=== PATIENT | male | born 1935 | race Caucasian/White ===

== ENCOUNTER → 2016-08-15 | Outpatient (CLI) | payer OTHER ==
[~2016-08-15] MED LIST: AMLO-110 PO; ASPEC81 PO; HYDR12.56 PO; METO25TA3 PO; NUTR1TAB3 PO; OMEG10007 PO; PRAV20TA PO; TAMS0.4C59 PO
== END | disposition home or self-care (01) ==
LOC: C.PATHSPEC 17:37
PROVIDERS: ATTEND Urology
DX: C67.9 Malignant neoplasm of bladder, unspecified (principal); N30.20 Other chronic cystitis without hematuria

== ENCOUNTER → 2016-10-15 | Outpatient (CLI) | payer OTHER ==
[2016-10-15 14:37] LABS: ALT/SGPT 34 U/L (12-78); AST/SGOT 22 U/L (15-37); BLOOD UREA NITROGEN 15 mg/dl (7-18); BUN/CREATININE RATIO 14.9 (10-20); CALCIUM 8.4 mg/dl (8.5-10.1); CARBON DIOXIDE 26 mmol/L (21-32); CHLORIDE 105 mmol/L (98-107); GLUCOSE 89 mg/dl (70-99); POTASSIUM 3.8 mmol/L (3.5-5.1); SODIUM 139 mmol/L (136-145)
[2016-10-15 14:41] LABS: ALB/GLOB RATIO 1.2 (0.9-2); ALKALINE PHOSPHATASE 86 U/L (45-117); CHOLESTEROL 158 mg/dl (0-200); CHOLESTEROL/HDL RATIO 2.1; HDL CHOLESTEROL 74 mg/dl; LDL CHOLESTEROL CALCULATED 70 mg/dl; TRIGLYCERIDES 71 mg/dl (0-150); VERY LOW DENSITY LIPOPROT CALC 14 mg/dl
== END | disposition home or self-care (01) ==
LOC: C.LABPVFM 07:50
PROVIDERS: ATTEND Family Medicine
DX: I10 Essential (primary) hypertension (principal); E78.5 Hyperlipidemia, unspecified

== ENCOUNTER → 2017-02-20 | Outpatient (CLI) | payer OTHER | END | disposition home or self-care (01) | LOC: C.LABSPEC 17:02 | PROVIDERS: ATTEND Urology | DX: C67.9 Malignant neoplasm of bladder, unspecified (principal); R82.8 Abnormal findings on cytological and histological examination of urine ==

== ENCOUNTER → 2017-04-16 | Outpatient (CLI) | payer OTHER ==
[2017-04-16 13:23] LABS: ALT/SGPT 29 U/L (12-78); AST/SGOT 20 U/L (15-37); BLOOD UREA NITROGEN 18 mg/dl (7-18); BUN/CREATININE RATIO 17.7 (10-20); CALCIUM 8.2 mg/dl (8.5-10.1); CARBON DIOXIDE 25 mmol/L (21-32); CHLORIDE 104 mmol/L (98-107); GLUCOSE 86 mg/dl (70-99); POTASSIUM 3.8 mmol/L (3.5-5.1); SODIUM 138 mmol/L (136-145)
[2017-04-16 13:26] LABS: ALB/GLOB RATIO 1.3 (0.9-2); ALKALINE PHOSPHATASE 79 U/L (45-117); CHOLESTEROL 169 mg/dl (0-200); HDL CHOLESTEROL 83 mg/dl; LDL CHOLESTEROL CALCULATED 73 mg/dl; TRIGLYCERIDES 64 mg/dl (0-150); VERY LOW DENSITY LIPOPROT CALC 13 mg/dl
== END | disposition home or self-care (01) ==
LOC: C.LABPVFM 08:13
PROVIDERS: ATTEND Family Medicine
DX: I10 Essential (primary) hypertension (principal); E78.5 Hyperlipidemia, unspecified

== ENCOUNTER → 2017-10-23 | Outpatient (CLI) | payer OTHER ==
[2017-10-23 14:09] LABS: ALBUMIN 3.6 gm/dl (3.4-5.0); ALT/SGPT 34 U/L (12-78); AST/SGOT 21 U/L (15-37); BLOOD UREA NITROGEN 21 mg/dl (7-18); CALCIUM 8.4 mg/dl (8.5-10.1); CARBON DIOXIDE 29 mmol/L (21-32); CHOLESTEROL 166 mg/dl (0-200); CREATININE 1.16 mg/dl (0.60-1.40); GLUCOSE 90 mg/dl (70-99); LDL CHOLESTEROL CALCULATED 78 mg/dl; POTASSIUM 3.9 mmol/L (3.5-5.1); SODIUM 136 mmol/L (136-145); TOTAL PROTEIN 6.9 gm/dl (6.4-8.2)
[2017-10-23 14:16] LABS: ALKALINE PHOSPHATASE 77 U/L (45-117)
== END | disposition home or self-care (01) ==
LOC: C.LABPVFM 08:05
PROVIDERS: ATTEND Family Medicine
DX: I10 Essential (primary) hypertension (principal); C67.9 Malignant neoplasm of bladder, unspecified; F41.9 Anxiety disorder, unspecified; E78.5 Hyperlipidemia, unspecified; Z98.890 Other specified postprocedural states; I71.4 Abdominal aortic aneurysm, without rupture; R60.0 Localized edema; R42 Dizziness and giddiness

== ENCOUNTER 2017-11-08 11:29 | Emergency (ER) | payer OTHER ==
[~2017-11-08] VITALS: Ht 170.2 cm; Wt 86.0 kg
[2017-11-08 11:37] VITALS: TEMP 36.5; Ht 170.2 cm; Wt 86.0 kg
[2017-11-08] MEDS ORDERED: ACETAMINOPHEN 500 MG TAB PO STA (11:59)
[2017-11-08] MEDS ORDERED: OPTIRAY 320 IV PRN (12:15)
[2017-11-08] MEDS ORDERED: METO25TA56 PO (12:17)
[2017-11-08] MEDS ORDERED: POTA10TA PO (12:17)
[2017-11-08] MEDS ORDERED: TAMS0.4C38 PO (12:18)
[2017-11-08] MEDS ORDERED: ASPI81TA28 PO (12:18)
[2017-11-08 12:23] LABS: BASO % 0.2 %; BASO ABS # 0.02 K/uL (0-0.2); EOS ABS # 0.18 K/uL (0-0.5); HEMATOCRIT 41.5 % (42-52); HEMOGLOBIN 14.8 g/dL (14.0-18.0); IG# 0.03 K/uL (0.00-0.02); LYMPH % 16.2 %; LYMPH ABS # 1.49 K/uL (1.2-3.4); MEAN CELL VOLUME 88.5 fL (80-100); MEAN CORPUSCULAR HEMOGLOBIN 31.6 pg (25-34); MEAN CORPUSCULAR HGB CONC 35.7 g/dl (32-36); MEAN PLATELET VOLUME 9.2 fL (7.4-10.4); MONO % 9.8 %; NEUT % 71.5 %; NEUT ABS # 6.58 K/uL (1.4-6.5); PLATELET COUNT 139 K/uL (130-400); RED CELL DISTRIBUTION WIDTH CV 13.7 % (11.5-14.5); RED CELL DISTRIBUTION WIDTH SD 44.6 fL (36.4-46.3)
[2017-11-08 12:39] LABS: ALBUMIN 3.7 gm/dl (3.4-5.0); CALCIUM 8.5 mg/dl (8.5-10.1); CREATININE 1.1 mg/dl (0.60-1.40); POTASSIUM 3.7 mmol/L (3.5-5.1)
[2017-11-08 12:42] LABS: TOTAL PROTEIN 6.9 gm/dl (6.4-8.2)
--- NOTE | 2017-11-08 13:43 | DIAGNOSTIC IMAGING REPORT ---
ADDENDUM Upon further review of the case, there are subtle acute nondisplaced fractures involving the anterolateral aspects of the right eighth, ninth and 10th ribs. Electronically signed by: Jeremiah Tirado M.D. 11/08/2017 1:56 PM Dictated Date/Time: 11/08/2017 1:54 PM ORIGINAL REPORT ABDOMEN AND PELVIS CT WITH IV CONTRAST CT DOSE: 632.12 mGy.cm HISTORY: Acute generalized abdominal pain, most pronounced in the right status post trauma. ABD PAIN, POSS liver injury--trauma, IV CONTRAST ONLY TECHNIQUE: Multiaxial CT images of the abdomen and pelvis were performed following the use of intravenous contrast. A dose lowering technique was utilized adhering to the principles of ALARA. COMPARISON STUDY: CT abdomen and pelvis 06/29/2015 FINDINGS: Mild right hemidiaphragmatic elevation with linear subsegmental consolidative opacities of the right lung base suggesting mixture of atelectasis and scarring. Subsegmental consolidative and groundglass opacities of the basal left lower lobe are also present. 3 mm solid nodule of the lingula. Calcified granulomata of the lung bases. Central airways appear patent. No pneumatosis or pneumoperitoneum. Imaged inferior cardiac chambers are mildly enlarged with coronary arterial and aortic annular calcifications noted. Nonspecific mildly enlarged 11 mm precarinal lymph node with 14 mm subcarinal lymph node demonstrating minimal calcification. Calcified right hilar lymph nodes. Liver is unremarkable without evidence of acute injury. Calcific granuloma of the hepatic dome incidentally noted. Spleen and gallbladder are unremarkable. Moderate generalized pancreatic atrophy. Moderate thickening about the left adrenal gland, unchanged. Mild nonspecific bilateral perinephric stranding. Nonobstructing 4 mm calculus of the inferior pole left kidney punctate nonobstructing interpolar calculus. 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 No ureteral calculi or obstructive uropathy. Prostate is mildly enlarged. There is mild wall thickening of the bladder with mild perivesicular stranding. Small fat filled inguinal hernias. Extensive mixed plaquing of the abdominal aorta with infrarenal abdominal aortic aneurysm redemonstrated, 2.9 x 3.6 cm, previously measuring 2.8 x 3.1 cm at the same level. Unchanged dissection of the abdominal aorta extending from the diaphragmatic hiatus into the right external iliac artery. The false lumen is again noted to be partially thrombosed. Dilation of the right common iliac artery measures 3.0 cm, previously 2.7 cm. Dilation of the right external iliac artery measures 1.5 cm, unchanged. Iliac arteries are patent. There is no bulky adenopathy identified. No retroperitoneal or rectus sheath hematoma identified to correlate with patient's clinical symptoms. Moderate hiatal hernia. No bowel obstruction or focal bowel wall thickening. Colonic diverticulosis without diverticulitis. No mesenteric inflammatory changes or ascites. Moderate stool volume of the right hemicolon. Appendix is not definitively seen. No secondary signs of acute appendicitis. Soft tissues and bony structures are unremarkable. Advanced multilevel degenerative changes about the spine. IMPRESSION: 1. No acute intra-abdominal or intrapelvic abnormality identified, specifically no evidence of acute solid organ injury. 2. Subsegmental mixed consolidative and groundglass opacities of the lung bases suggest atelectasis or pneumonitis. 3. Mildly progressive aneurysmal dilation of the infrarenal abdominal aorta, now measuring up to 3.6 cm, previously measuring up to 3.1 cm on study dated 06/29/2015. Unchanged dissection of the abdominal aorta extending into the right common and external iliac arteries. 4. Nonobstructing left-sided nephrolithiasis. 5. Moderate hiatal hernia. 6. Colonic diverticulosis without diverticulitis. Electronically signed by: Jeremiah Tirado M.D. 11/08/2017 1:42 PM Dictated Date/Time: 11/08/2017 1:29 PM
--- NOTE | 2017-11-08 13:49 | EMERGENCY ROOM VISIT NOTE ---
History Report prepared by Brian: Brennan Loyola Under the Supervision of: Dr. Ced Quijano M.D. 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 History of Present Illness The patient is an 82 year old male who presents to the Emergency Room with complaints of right-sided abdominal pain beginning two days ago. The patient states that he bent over two days ago and had his belt dig into his abdomen. He notes that he has had pain since and reports that his pain worsens with movement. He also complains of SOB when his pain comes on. He denies any nausea , vomiting, fever, urinary symptoms, and bruises. The patient states that he takes a low dose of aspirin but does not take any other blood thinners. He rates his pain as a 9-10/10. Source of History: patient Onset: two days ago Position: abdomen (right-sided) Symptom Intensity: 9-10/10 Quality: other (9-10/10) Timing: constant Modifying Factors (Worsening): movement Associated Symptoms: + SOB, No fevers, No nausea, No vomiting, No urinary symptoms Note: The patient denies any bruising. Review of Systems See HPI for pertinent positives & negatives. A total of 10 systems reviewed and were otherwise negative. Past Medical & Surgical Medical Problems: (1) Aortic dissection (2) Bladder cancer (3) Prostate cancer Family History FH: heart disease FH: hyperlipidemia Hypertension Kidney disease Kidney stones Social History Smoking Status: Former Smoker Marital Status: Housing Status: lives with family Occupation Status: retired Current/Historical Medications Scheduled Amlodipine (Norvasc), 5 MG PO DAILY Aspirin (Aspirin Ec), 81 MG PO DAILY Fish Oil ([place]-3), 1 CAP PO UD Hydrochlorothiazide (Hctz), 12.5 MG PO DAILY Metoprolol Succ (Toprol Xl) (Toprol-Xl), 12.5 MG PO DAILY Metoprolol Tartrate (Lopressor) (Lopressor), 12.5 MG PO DAILY Nutritional Supplements (Bladder 2.2), 1 TAB PO BID Potassium Chloride (K-Tabs), 10 MEQ PO DAILY Pravastatin (Pravachol ), 20 MG PO QPM Tamsulosin Hcl (Flomax), 0.4 MG PO DAILY Allergies Coded Allergies: No Known Allergies (Verified , 08/17/07) Physical Exam Vital Signs Date Time Temp Pulse Resp B/P (MAP) Pulse Ox O2 Delivery O2 Flow Rate FiO2 11/08/17 14:21 76 20 108/68 93 11/08/17 13:25 75 20 123/61 93 Room Air 11/08/17 11:37 36.5 74 18 142/77 92 Room Air Physical Exam GENERAL: Patient is in no acute distress. HEENT: No acute trauma, normocephalic atraumatic, mucous membranes moist, no nasal congestion, no scleral icterus. NECK: No stridor, no adenopathy, no meningismus, trachea is midline. LUNGS: Clear to auscultation bilaterally, no wheeze, no rhonchi, breath sounds equal. HEART: 2/6 systolic murmur, regular rate and rhythm. ABDOMEN: Soft, bowel sounds positive, no hernias, no peritonitis, tender in the RUQ and right upper lateral abdomen, no contusion, tender over right lateral lower ribs, lower abdomen and left abdomen are nontender, no distension. EXTREMITIES: No cyanosis, full range of motion of all the joints without pain or difficulty, no signs for acute trauma, moderate bilateral pedal edema. NEUROLOGIC: Oriented x 3, no acute motor or sensory deficits, no focal weakness. SKIN: No rash, no jaundice, no diaphoresis. Medical Decision & Procedures ER Provider Diagnostic Interpretation: Radiology results as stated below per my review and radiologist interpretation: R RIBS UNILATERAL WITH PA CHEST FINDINGS: Cardiac silhouette is within normal limits in size. Prior median sternotomy. Atherosclerosis of the aorta. Mild right hemidiaphragmatic elevation with linear subsegmental bibasilar opacities. No pneumothorax, pleural effusion or overt pulmonary edema. The bones appear mildly demineralized. Acute fractures are seen involving the anterolateral aspects of the right eighth, ninth and 10th ribs. IMPRESSION: 1. Mild right hemidiaphragm elevation with linear subsegmental bibasilar opacities favoring atelectasis. 2. Acute fractures of the anterolateral right eighth, ninth and 10th ribs without significant displacement. No pneumothorax. The above report was generated using voice recognition software. It may contain grammatical, syntax or spelling errors. Electronically signed by: Jeremiah Tirado M.D. 11/08/2017 1:57 PM Dictated Date/Time: 11/08/2017 1:54 PM ORIGINAL REPORT ABDOMEN AND PELVIS CT WITH IV CONTRAST FINDINGS: Mild right hemidiaphragmatic elevation with linear subsegmental consolidative opacities of the right lung base suggesting mixture of atelectasis and scarring. Subsegmental consolidative and groundglass opacities of the basal left lower lobe are also present. 3 mm solid nodule of the lingula. Calcified granulomata of the lung bases. Central airways appear patent. No pneumatosis or pneumoperitoneum. Imaged inferior cardiac chambers are mildly enlarged with coronary arterial and aortic annular calcifications noted. Nonspecific mildly enlarged 11 mm precarinal lymph node with 14 mm subcarinal lymph node demonstrating minimal calcification. Calcified right hilar lymph nodes. Liver is unremarkable without evidence of acute injury. Calcific granuloma of the hepatic dome incidentally noted. Spleen and gallbladder are unremarkable. Moderate generalized pancreatic atrophy. Moderate thickening about the left adrenal gland, unchanged. Mild nonspecific bilateral perinephric stranding. Nonobstructing 4 mm calculus of the inferior pole left kidney punctate nonobstructing interpolar calculus. 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 No ureteral calculi or obstructive uropathy. Prostate is mildly enlarged. There is mild wall thickening of the bladder with mild perivesicular stranding. Small fat filled inguinal hernias. Extensive mixed plaquing of the abdominal aorta with infrarenal abdominal aortic aneurysm redemonstrated, 2.9 x 3.6 cm, previously measuring 2.8 x 3.1 cm at the same level. Unchanged dissection of the abdominal aorta extending from the diaphragmatic hiatus into the right external iliac artery. The false lumen is again noted to be partially thrombosed. Dilation of the right common iliac artery measures 3.0 cm, previously 2.7 cm. Dilation of the right external iliac artery measures 1.5 cm, unchanged. Iliac arteries are patent. There is no bulky adenopathy identified. No retroperitoneal or rectus sheath hematoma identified to correlate with patient's clinical symptoms. Moderate hiatal hernia. No bowel obstruction or focal bowel wall thickening. Colonic diverticulosis without diverticulitis. No mesenteric inflammatory changes or ascites. Moderate stool volume of the right hemicolon. Appendix is not definitively seen. No secondary signs of acute appendicitis. Soft tissues and bony structures are unremarkable. Advanced multilevel degenerative changes about the spine. IMPRESSION: 1. No acute intra-abdominal or intrapelvic abnormality identified, specifically no evidence of acute solid organ injury. 2. Subsegmental mixed consolidative and groundglass opacities of the lung bases suggest atelectasis or pneumonitis. 3. Mildly progressive aneurysmal dilation of the infrarenal abdominal aorta, now measuring up to 3.6 cm, previously measuring up to 3.1 cm on study dated 06/29/2015. Unchanged dissection of the abdominal aorta extending into the right common and external iliac arteries. 4. Nonobstructing left-sided nephrolithiasis. 5. Moderate hiatal hernia. 6. Colonic diverticulosis without diverticulitis. Electronically signed by: Jeremiah Tirado M.D. 11/08/2017 1:42 PM ADDENDUM Upon further review of the case, there are subtle acute nondisplaced fractures involving the anterolateral aspects of the right eighth, ninth and 10th ribs. Electronically signed by: Jeremiah Tirado M.D. 11/08/2017 1:56 PM Laboratory Results 11/08/17 12:10 Red Blood Count 4.69, Mean Corpuscular Volume 88.5, Mean Corpuscular Hemoglobin 31.6, Mean Corpuscular Hemoglobin Concent 35.7, Mean Platelet Volume 9.2, Neutrophils (%) (Auto) 71.5, Lymphocytes (%) (Auto) 16.2, Monocytes (%) (Auto) 9.8, Eosinophils (%) (Auto) 2.0, Basophils (%) (Auto) 0.2, Neutrophils # (Auto) 6.58, Lymphocytes # (Auto) 1.49, Monocytes # (Auto) 0.90, Eosinophils # (Auto) 0.18, Basophils # (Auto) 0.02 11/08/17 12:10 Test 11/08/17 12:10 White Blood Count 9.20 K/uL (4.8-10.8) Red Blood Count 4.69 M/uL (4.7-6.1) Hemoglobin 14.8 g/dL (14.0-18.0) Hematocrit 41.5 % (42-52) Mean Corpuscular Volume 88.5 fL (80-100) Mean Corpuscular Hemoglobin 31.6 pg (25-34) Mean Corpuscular Hemoglobin Concent 35.7 g/dl (32-36) Platelet Count 139 K/uL (130-400) Mean Platelet Volume 9.2 fL (7.4-10.4) Neutrophils (%) (Auto) 71.5 % Lymphocytes (%) (Auto) 16.2 % Monocytes (%) (Auto) 9.8 % Eosinophils (%) (Auto) 2.0 % Basophils (%) (Auto) 0.2 % Neutrophils # (Auto) 6.58 K/uL (1.4-6.5) Lymphocytes # (Auto) 1.49 K/uL (1.2-3.4) Monocytes # (Auto) 0.90 K/uL (0.11-0.59) Eosinophils # (Auto) 0.18 K/uL (0-0.5) Basophils # (Auto) 0.02 K/uL (0-0.2) RDW Standard Deviation 44.6 fL (36.4-46.3) RDW Coefficient of Variation 13.7 % (11.5-14.5) Immature Granulocyte % (Auto) 0.3 % Immature Granulocyte # (Auto) 0.03 K/uL (0.00-0.02) Anion Gap 6.0 mmol/L (3-11) Est Creatinine Clear Calc Drug Dose 55.2 ml/min Estimated GFR () 72.6 Estimated GFR (Non- 62.6 BUN/Creatinine Ratio 14.4 (10-20) Calcium Level 8.5 mg/dl (8.5-10.1) Total Bilirubin 0.9 mg/dl (0.2-1) Aspartate Amino Transf (AST/SGOT) 20 U/L (15-37) Alanine Aminotransferase (ALT/SGPT) 26 U/L (12-78) Alkaline Phosphatase 77 U/L (45-117) Total Protein 6.9 gm/dl (6.4-8.2) Albumin 3.7 gm/dl (3.4-5.0) Globulin 3.2 gm/dl (2.5-4.0) Albumin/Globulin Ratio 1.2 (0.9-2) Lipase 48 U/L (73-393) Laboratory results reviewed by me. Medications Administered Medications (Trade) Dose Ordered Sig/Kip Route Start Time Stop Time Status Last Admin Dose Admin Acetaminophen (Tylenol Tab) 1,000 mg NOW STAT PO 11/08/17 11:59 11/08/17 12:01 DC 11/08/17 12:06 1,000 MG ED Course 1154: The patient was evaluated in room C6. A complete history and physical exam was performed. 1159: Acetaminophen 1000mg PO 1405: I reevaluated and updated the patient. 1431: Reevaluated the patient. Discussed results and discharge instructions: He verbalized understanding and agreement. The patient is ready for discharge. Medical Decision Differential diagnoses include: rib fracture/contusion, pulmonary contusion, liver injury, intraabdominal bleeding, musculoskeletal pain, renal injury, UTI, and renal colic. There is no leukocytosis or worrisome anemia. No significant electrolyte abnormality, kidney failure or hepatitis. Abdominal and pelvis CT shows some chronic change. No bowel obstruction. No acute liver injury. His infrarenal aneurysm was slightly bigger than the previous CT. The findings of aortic dissection appeared stable. Right rib series shows no pneumothorax or pneumonia. Ribs 8, 9 and 10 on the right are fractured. The patient received Tylenol for pain, he seems comfortable. He is not hypoxic or toxic. Patient has broken 3 ribs on the right, this is causing his discomfort. He was reassured that there was no intra-abdominal injury. He will be discharged with Tylenol, heat, time and outpatient family doctor follow-up. Medication Reconcilliation Current Medication List: was personally reviewed by me Blood Pressure Screening Patient's blood pressure: Normal blood pressure Blood pressure disposition: Did not require urgent referral Impression Primary Impression: Right rib fracture Additional Impressions: Right-sided chest pain RUQ abdominal pain Scribe Attestation The scribe's documentation has been prepared under my direction and personally reviewed by me in its entirety. I confirm that the note above accurately reflects all work, treatment, procedures, and medical decision making performed by me. Departure Information Dispostion Home / Self-Care Referrals Binu Campbell M.D. (PCP) Forms HOME CARE DOCUMENTATION FORM, IMPORTANT VISIT INFORMATION Patient Instructions My [facility] Additional Instructions tylenol for pain heat to the area will help avoid lifting and bending rest see jay mehta for a reheck this week return for worsening symptoms or worsening breathing, return for fever Problem Qualifiers
--- NOTE | 2017-11-08 13:58 | DIAGNOSTIC IMAGING REPORT ---
R RIBS UNILATERAL WITH PA CHEST HISTORY: 82 years-old Male pain, trauma acute right-sided rib pain status post fall COMPARISON: Chest radiograph 01/08/2013, CT abdomen and pelvis of same day TECHNIQUE: PA view of the chest with 4 views of the right ribs FINDINGS: Cardiac silhouette is within normal limits in size. Prior median sternotomy. Atherosclerosis of the aorta. Mild right hemidiaphragmatic elevation with linear subsegmental bibasilar opacities. No pneumothorax, pleural effusion or overt pulmonary edema. The bones appear mildly demineralized. Acute fractures are seen involving the anterolateral aspects of the right eighth, ninth and 10th ribs. IMPRESSION: 1. Mild right hemidiaphragm elevation with linear subsegmental bibasilar opacities favoring atelectasis. 2. Acute fractures of the anterolateral right eighth, ninth and 10th ribs without significant displacement. No pneumothorax. The above report was generated using voice recognition software. It may contain grammatical, syntax or spelling errors. Electronically signed by: Jeremiah Tirado M.D. 11/08/2017 1:57 PM Dictated Date/Time: 11/08/2017 1:52 PM
[2017-11-08 14:21] VITALS: BP 108/68; PULSE 76; O2SAT 93
== END 2017-11-08 14:22 | disposition home or self-care (01) ==
LOC: C.EDB 11:31 → C.EDC 14:22
DX: S22.41XA Multiple fractures of ribs, right side, initial encounter for closed fracture (principal); X58.XXXA Exposure to other specified factors, initial encounter; Z79.82 Long term (current) use of aspirin; Z85.51 Personal history of malignant neoplasm of bladder; Z85.46 Personal history of malignant neoplasm of prostate; Z82.49 Family history of ischemic heart disease and other diseases of the circulatory system; Z84.1 Family history of disorders of kidney and ureter; Z87.891 Personal history of nicotine dependence; Z79.899 Other long term (current) drug therapy

== ENCOUNTER → 2018-01-29 | Outpatient (CLI) | payer OTHER ==
[~2018-01-29] MED LIST changes: -AMLO-110 PO; +AMLO5TAB3 PO; -ASPEC81 PO; +ASPI81TA28 PO; +METO25TA56 PO; +POTA10TA PO; +TAMS0.4C38 PO; -TAMS0.4C59 PO
== END | disposition home or self-care (01) ==
LOC: C.PATHSPEC 17:16
PROVIDERS: ATTEND Urology
DX: C67.9 Malignant neoplasm of bladder, unspecified (principal)

== ENCOUNTER 2022-05-23 18:01 | Inpatient (IN) ==
--- NOTE | 2022-05-23 18:42 | Emergency Department Note ---
Impression & Plan Acute right flank pain, Cholelithiasis, Abnormal findings on diagnostic imaging of gallbladder ED Provider Note INFORMANT: Patient ED PROVIDER(S): Federico Benavides MD CHIEF COMPLAINT: Right flank pain PLAN: Disposition: Admitted Condition: Good Outpatient prescription management: none Referral: None MEDICAL DECISION MAKING: Patient presented because of right flank pain. He had a significant work-up done 2 days ago which included a CT PE study as well as scan of the abdomen and pelvis. The patient was quite uncomfortable and a new work-up was performed. He had an unremarkable CBC except for mild anemia. Chemistry panel and LFTs were negative. There was cardiomegaly noted on chest x-ray. Urinalysis was unremarkable. No suggestion of infection. Patient has a history of stones but there was no hematuria. 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 Patient was given a dose of morphine and sent for ultrasound imaging. Given his issues and discomfort further management in the hospital was felt to be appropriate. Consultation was made with Dr. João Holman of the [facility] service. Patient was evaluated in the ER for further management. Triage Nursing notes reviewed and agree them. Vital Signs: reviewed and remarkable for no significant abnormalities Differential diagnosis: Musculoskeletal, rib fracture, exacerbation of thoracic compression fracture, intrathoracic complication, renal colic, UTI, appendicitis, diverticulitis, mesenteric ischemia, aortic pathology, infections, inflammatory bowel disease, PUD, biliary pathology, as well as other pathologies. Diagnostics interpreted by me: ECG: Twelve-lead ECG reveals a sinus rhythm with sinus arrhythmia at first- degree AV block at 63 bpm. Right bundle branch block. No ST elevation or depression. Cardiac Monitoring: Cardiac monitoring ordered by me: The patient was placed on continuous cardiac monitoring and observed. It revealed a normal sinus rhythm at 86 beats per minute without ectopy or evidence of dysrhythmia. Imaging studies: CT scan as noted above. Ultrasound pending. HPI: The patient is a 86year old male who presents to the Emergency Room with complaints of right flank pain. The patient has a history of right-sided rib fracture on 7, 8 and 9. These were healing from prior injury. Patient had pain and was seen in the ER 2 days ago and those were evaluated. He had a chest, abdomen and pelvis CT performed. He was found to have a new T8 compression fracture. He denies any new injury or fall. This started worsened today and is described as sharp and intermittent. Worse with breathing and certain movements. The patient also notes the following associated symptoms, back pain. The patient has taken Tylenol and oxycodone for relieving factors. Current pain is rated as 4/10. Pt denies LOC, headache, fevers, chills, diaphoresis, visual changes, neck pain, chest pain, breathing difficulties, nausea, vomiting,left abdominal pain, melena, hematochezia, urinary symptoms, numbness, weakness, lymphadenopathy, rash, or other complaints. ROS: See above HPI for pertinent positives & negatives. A total of 10 systems reviewed and were otherwise negative. PAST MEDICAL HISTORY:See Below , right-sided rib fractures, AAA repair, kidney stones PAST SURGICAL HISTORY:See Below, FAMILY HISTORY:See Below SOCIAL HISTORY:See Below, retired HOME MEDICATIONS:See Below ALLERGIES:See Below VITALS:See Below PHYSICAL EXAMINATION: GENERAL: Awake, alert, uncomfortable-appearing, in no distress HENT: Normocephalic, atraumatic. Oropharynx unremarkable. EYES: Normal conjunctiva. Sclera non-icteric. NECK: Inspection normal. Non-tender. Supple. No nuchal rigidity. FROM. No masses. RESPIRATORY: Clear to auscultation. No wheezes. No rales. Normal respiratory effort. CARDIAC: Normal rate. Normal rhythm. No murmurs. No rubs. Extremities warm and well perfused. Pulses equal. No JVD. GI: Soft, non-distended. Right upper quadrant and flank tenderness to palpation. No rebound or guarding. No masses. RECTAL: Deferred. MUSCULOSKELETAL: Atraumatic. Chest examination reveals no tenderness. No tenderness along the right ribs. The back is symmetrical on inspection without obvious abnormality. There is right flank and CVA tenderness to palpation. No joint edema. LOWER EXTREMITIES: Calves are equal size bilaterally and non-tender. No edema. No discoloration. NEURO: Normal sensorium. No sensory or motor deficits noted. SKIN: No rash or jaundice noted. Federico Benavides MD Past Med/Surg History Medical History Carcinoma of bladder Right rib fracture Ureter colic Surgical History History of bladder surgery Hx of replacement of aortic valve Family History Sister Cancer Grandmother Cancer Grandmother Diabetes Unknown Heart disease Father Myocardial infarction Other Family history non-contributory Denies family history of Ovarian cancer Prostate cancer Breast cancer Colorectal cancer Social History Smoking Status: Never smoker Second Hand Exposure: No; Hx Alcohol Use: No Hx Substance Use: No Preferred Language: [place] Communication Ability: Effective Hearing Ability: Use of Hearing Aid Certified Midwife Required: No marital status: Current Living Situation: Spouse current occupational status: retired How many Children do You have: 2 Feels Safe at Home: Yes Childhood Exposure to Second-Hand Smoke: No caffeine: Yes Dental Care, Regularly: No Physical Activity Frequency: 3-4 Times per Week Seatbelt Use: always Sunscreen Use: No Allergies Allergies Allergy/AdvReac Type Severity Reaction Status Date / Time No Known Allergies Allergy Verified 05/23/22 19:42 Home Meds Home Medications Medication Instructions Recorded Confirmed aspirin 81 mg tablet,delayed 81 mg PO DAILY 05/03/18 05/23/22 release rokuvuez-qbke-wnoru acid 200 1 tab PO DAILY 01/11/19 05/23/22 mcg-lycopene 5 mg-boron 250 mcg tablet (Bladder 2.2) losartan 25 mg tablet 25 mg PO DAILY 07/12/20 05/23/22 furosemide 40 mg tablet 40 mg PO .COMPLEX 07/18/21 05/23/22 metoprolol tartrate 25 mg tablet 25 mg PO DAILY 07/18/21 05/23/22 potassium chloride 20 mEq 20 meq PO .COMPLEX 07/18/21 05/23/22 tablet,extended release spironolactone 25 mg tablet 25 mg PO DAILY 07/18/21 05/23/22 ubidecarenone-omega 3-vit E 50 1 cap PO DAILY 07/18/21 05/23/22 mg-300 (180-120)mg-30 unit capsule terazosin 1 mg capsule 1 mg PO HS 05/23/22 05/23/22 Previous Rx's Medication Instructions Recorded pravastatin 20 mg tablet 20 mg PO HS #30 tabs 12/10/21 tamsulosin 0.4 mg capsule 0.8 mg PO HS #60 caps 12/10/21 Results & Data (ED) Vital Signs Vital Signs - 24 hr 05/23/22 18:10 05/23/22 18:10 05/23/22 19:10 Temperature 36.6 C Temperature Source Oral Pulse Rate 84 Pulse Rate [Apical] 83 80 Pulse Rhythm [Apical] Regular Pulse Strength [Apical] Normal Respiratory Rate 16 16 16 Respiratory Effort / Characteristics Non-Labored Respiratory Depth Normal Normal Respiratory Pattern Regular Blood Pressure 143/76 H Blood Pressure [Left Arm] 143/76 H Blood Pressure Mean 98 Blood Pressure Mean [Left Arm] 98 Blood Pressure Position [Left Arm] Pulse Oximetry 95 96 94 Oxygen Delivery Method Room Air Room Air Room Air Sepsis Recent Fever Within 48 Hours No Sepsis New/Unexplained Change in Mental Status N/A Sepsis Action Taken by Nursing No Action Required 05/23/22 21:00 05/23/22 22:36 05/23/22 23:00 Temperature Temperature Source Pulse Rate Pulse Rate [Apical] 85 82 86 Pulse Rhythm [Apical] Regular Regular Regular Pulse Strength [Apical] Normal Normal Normal Respiratory Rate 16 16 16 Respiratory Effort / Characteristics Non-Labored Non-Labored Non-Labored Respiratory Depth Shallow Normal Normal Respiratory Pattern Regular Regular Regular Blood Pressure Blood Pressure [Left Arm] 154/75 H 154/75 H 154/75 H Blood Pressure Mean Blood Pressure Mean [Left Arm] 101 101 101 Blood Pressure Position [Left Arm] Lying Pulse Oximetry 94 92 94 Oxygen Delivery Method Room Air Room Air Room Air Sepsis Recent Fever Within 48 Hours Sepsis New/Unexplained Change in Mental Status Sepsis Action Taken by Nursing Laboratory Data Result diagrams: 05/23/22 18:54 05/23/22 18:54 Lab Results 05/23/22 05/23/22 05/23/22 Range/Units 18:54 18:54 21:13 WBC 6.88 (4.8-10.8) K/ul RBC 3.96 L (4.63-6.08) M/uL Hgb 12.6 L (14.0-18.0) g/dl Hct 35.8 L (40.1-51.0) % MCV 90.4 (80.0-100.0) fL MCH 31.8 (25.0-34.0) pg MCHC 35.2 (32.0-36.0) g/dL RDW Std Deviation 43.4 (36.4-46.3) fL RDW Coeff of [place] 13.1 (11.5-14.5) % Plt Count 167 (130-400) K/uL MPV 9.3 L (9.4-12.4) fL Immature Gran % (Auto) 0.1 % Neut % (Auto) 66.2 % Lymph % (Auto) 12.9 % [place] % (Auto) 18.0 % Eos % (Auto) 2.5 % Baso % (Auto) 0.3 % Neut # (Auto) 4.55 (1.4-6.5) K/uL Lymph # (Auto) 0.89 L (1.2-3.4) K/uL [place] # (Auto) 1.24 H (0.24-0.82) K/uL Eos # (Auto) 0.17 (0-0.50) K/uL Baso # (Auto) 0.02 (0-0.2) K/uL Immature Gran # (Auto) 0.01 (0.00-0.02) K/uL Sodium 131 L (136-145) mmol/L Potassium 3.6 (3.5-5.1) mmol/L Chloride 100 (98-107) mmol/L Carbon Dioxide 22 (21-32) mmol/L Anion Gap 9 (3-11) BUN 24 H (6-23) mg/dl Creatinine 1.58 H (0.6-1.4) mg/dl Est Cr Clr Drug Dosing 32.0 ml/min Est GFR ( Amer) 45.6 ml/min Est GFR (Non-Af Amer) 39.3 ml/min BUN/Creatinine Ratio 15.2 (10-20) Glucose 100 H (70-99(Fasting)) mg/dl Calcium 8.8 (8.5-10.1) mg/dl Total Bilirubin 0.8 (0.2-1.0) mg/dl AST 18 (13-39) U/L ALT 16 (7-52) U/L Alkaline Phosphatase 64 (34-104) U/L Troponin I High Sens 6.9 (0-20) pg/ml Total Protein 6.2 (6.0-8.3) gm/dl Albumin 3.8 (3.4-5.0) gm/dl Globulin 2.4 L (2.5-4.0) gm/dl Albumin/Globulin Ratio 1.6 (0.9-2) Lipase 5 L (11-82) U/L Urine Color Yellow Urine Appearance Clear (Clear) Urine pH 5.5 (4.5-7.5) Ur Specific [place] 1.039 H (1.000-1.030) Urine Protein Negative (Negative) Urine Glucose (UA) Negative (Negative) Urine Ketones Trace H (Negative) Urine Blood Negative (Negative) Urine Nitrite Negative (Negative) Urine Bilirubin Negative (Negative) Urine Urobilinogen Negative (Negative) Ur Leukocyte Esterase Negative (Negative) SARS-CoV-2, RNA, NAAT (NEGATIVE) 05/24/22 Range/Units 00:11 WBC (4.8-10.8) K/ul RBC (4.63-6.08) M/uL Hgb (14.0-18.0) g/dl Hct (40.1-51.0) % MCV (80.0-100.0) fL MCH (25.0-34.0) pg MCHC (32.0-36.0) g/dL RDW Std Deviation (36.4-46.3) fL RDW Coeff of [place] (11.5-14.5) % Plt Count (130-400) K/uL MPV (9.4-12.4) fL Immature Gran % (Auto) % Neut % (Auto) % Lymph % (Auto) % [place] % (Auto) % Eos % (Auto) % Baso % (Auto) % Neut # (Auto) (1.4-6.5) K/uL Lymph # (Auto) (1.2-3.4) K/uL [place] # (Auto) (0.24-0.82) K/uL Eos # (Auto) (0-0.50) K/uL Baso # (Auto) (0-0.2) K/uL Immature Gran # (Auto) (0.00-0.02) K/uL Sodium (136-145) mmol/L Potassium (3.5-5.1) mmol/L Chloride (98-107) mmol/L Carbon Dioxide (21-32) mmol/L Anion Gap (3-11) BUN (6-23) mg/dl Creatinine (0.6-1.4) mg/dl Est Cr Clr Drug Dosing ml/min Est GFR ( Amer) ml/min Est GFR (Non-Af Amer) ml/min BUN/Creatinine Ratio (10-20) Glucose (70-99(Fasting)) mg/dl Calcium (8.5-10.1) mg/dl Total Bilirubin (0.2-1.0) mg/dl AST (13-39) U/L ALT (7-52) U/L Alkaline Phosphatase (34-104) U/L Troponin I High Sens (0-20) pg/ml Total Protein (6.0-8.3) gm/dl Albumin (3.4-5.0) gm/dl Globulin (2.5-4.0) gm/dl Albumin/Globulin Ratio (0.9-2) Lipase (11-82) U/L Urine Color Urine Appearance (Clear) Urine pH (4.5-7.5) Ur Specific [place] (1.000-1.030) Urine Protein (Negative) Urine Glucose (UA) (Negative) Urine Ketones (Negative) Urine Blood (Negative) Urine Nitrite (Negative) Urine Bilirubin (Negative) Urine Urobilinogen (Negative) Ur Leukocyte Esterase (Negative) SARS-CoV-2, RNA, NAAT NEGATIVE (NEGATIVE) Administered Medications Discontinued Medications Ioversol (Optiray 320 500ml) 117 ml IV ONCE ONE Stop: 05/23/22 20:03 Last Admin: 05/23/22 20:02 Dose: 117 ml Documented By: CHAYO Morphine Sulfate (Morphine Sulfate 2 Mg/Ml Carp) 1 mg IV NOW STA Stop: 05/23/22 23:27 Last Admin: 05/23/22 23:34 Dose: 1 mg Documented By: VON Imaging Data Radiologist's Impression: Chest X-Ray 05/23/22 18:22 SINGLE VIEW CHEST CLINICAL HISTORY: Right flank pain FINDINGS: An AP, portable, upright chest radiograph is compared to chest x-ray and chest CT dated 05/21/2022. A hiatal hernia is noted. The patient is status post midline sternotomy. The heart is enlarged noting atherosclerotic calcification of the thoracic aorta. The pulmonary vasculature is noncongested. Emphysema and chronic interstitial thickening is similar to previous. There is chronic elevation of the right hemidiaphragm with bibasilar scarring/atelectasis. No airspace consolidation or large pleural effusion is identified. No pneumothorax is seen. The skeletal structures are osteopenic. The bony thorax is grossly intact. Surgical clips project over the right axilla. IMPRESSION: 1. Cardiomegaly and emphysema with no acute cardiopulmonary abnormality identified. 2. Hiatal hernia. ACT 112: Negative or not required by law. Electronically signed by: Ced Gonzalez M.D. 05/23/2022 7:11 PM Discharge Plan Visit Data Chief Complaint: Rib Injury/Pain Stated Complaint: R SIDE RIB PAIN ED Provider: Federico Benavides Discharge Problem: Acute right flank pain, Cholelithiasis, Abnormal findings on diagnostic imaging of gallbladder Forms Stand Alone Forms: My [facility] RIB Software Prescriptions Prescriptions: No Action tamsulosin 0.4 mg capsule 0.8 mg PO HS Qty: 60 11RF pravastatin 20 mg tablet 20 mg PO HS Qty: 30 11RF losartan 25 mg tablet 25 mg PO DAILY potassium chloride 20 mEq tablet extended release 20 meq PO .COMPLEX Rx Instructions: 20 mEq PO daily; TAKES 40 MEQ ON TUESDAYS & FRIDAYS. Bladder 2.2 200-5-250 mcg-mg-mcg tablet 1 tab PO DAILY furosemide 40 mg tablet 40 mg PO .COMPLEX Rx Instructions: 40 mg PO daily; TAKES 80 MG ON TUESDAYS & FRIDAYS. ubidecarenone-omega 3-vit E 50-300-30 mg-mg-unit capsule 1 cap PO DAILY metoprolol tartrate 25 mg tablet 25 mg PO DAILY spironolactone 25 mg tablet 25 mg PO DAILY aspirin 81 mg Tablet,Delayed Release (Dr/Ec) 81 mg PO DAILY terazosin 1 mg capsule 1 mg PO HS Referrals Referrals: Bassam Silva DO [Primary Care Provider] -
[2022-05-23 19:14] LABS: Basophils # (auto) 0.02 K/uL (0-0.2); Basophils % (auto) 0.3 %; Eosinophils # (auto) 0.17 K/uL (0-0.50); Eosinophils % (auto) 2.5 %; Hematocrit (blood only) 35.8 % (40.1-51.0); Hemoglobin 12.6 g/dl (14.0-18.0); Immature Granulocytes # (auto) 0.01 K/uL (0.00-0.02); Immature Granulocytes % (auto) 0.1 %; Lymphocytes # (auto) 0.89 K/uL (1.2-3.4); Lymphocytes % (auto) 12.9 %; Mean Corpuscular Hemoglobin 31.8 pg (25.0-34.0); Mean Corpuscular Hgb Conc 35.2 g/dL (32.0-36.0); Mean Corpuscular Volume 90.4 fL (80.0-100.0); Mean Platelet Volume 9.3 fL (9.4-12.4); Monocytes # (auto) 1.24 K/uL (0.24-0.82); Neutrophils # (auto) 4.55 K/uL (1.4-6.5); Neutrophils % (auto) 66.2 %; Platelet Count 167 K/uL (130-400); RDW Coefficient of Variation 13.1 % (11.5-14.5); RDW Standard Deviation 43.4 fL (36.4-46.3); Red Blood Count 3.96 M/uL (4.63-6.08); White Blood Count 6.88 K/ul (4.8-10.8)
--- NOTE | 2022-05-23 19:14 | XRay Report ---
SINGLE VIEW CHEST CLINICAL HISTORY: Right flank pain FINDINGS: An AP, portable, upright chest radiograph is compared to chest x-ray and chest CT dated . A hiatal hernia is noted. The patient is status post midline sternotomy. The heart is enlarg ed noting atherosclerotic calcification of the thoracic aorta. The pulmonary vasculature is nonconges horacio. Emphysema and chronic interstitial thickening is similar to previous. There is chronic elevation of the right hemidiaphragm with bibasilar scarring/atelectasis. No airspace consolidation or large p leural effusion is identified. No pneumothorax is seen. The skeletal structures are osteopenic. The b joanne thorax is grossly intact. Surgical clips project over the right axilla. IMPRESSION: 1. Cardiomegaly and emphysema with no acute cardiopulmonary abnormality identified. 2. Hiatal hernia. ACT 112: Negative or not required by law. Electronically signed by: Ced Gonzalez M.D. 05/23/2022 7:11 PM
[2022-05-23 19:44] LABS: Albumin Globulin Ratio 1.6 (0.9-2); Albumin Level 3.8 gm/dl (3.4-5.0); BUN Creatinine Ratio 15.2 (10-20); Bilirubin,Total 0.8 mg/dl (0.2-1.0); Calcium 8.8 mg/dl (8.5-10.1); Est GFR (African American) 45.6 ml/min; Est GFR (Non-African American) 39.3 ml/min; Globulin 2.4 gm/dl (2.5-4.0); Potassium 3.6 mmol/L (3.5-5.1); Total Protein 6.2 gm/dl (6.0-8.3)
[2022-05-23 19:45] LABS: Troponin I High Sensitivity 6.9 pg/ml (0-20)
[2022-05-23] MEDS ORDERED: OPTIRAY 320 500ml IV ONE (20:02)
[2022-05-23 21:46] LABS: Appearance Urine Clear (Clear); Bilirubin Urine Negative (Negative); Blood Urine Negative (Negative); Color Urine Yellow; Glucose Urine UA Negative (Negative); Ketones Urine Trace (Negative); Leukocyte Esterase Urine Negative (Negative); Nitrite Urine Negative (Negative); Protein Urine Negative (Negative); Specific Gravity Urine 1.039 (1.000-1.030); Urobilinogen Urine Negative (Negative); pH Urine 5.5 (4.5-7.5)
[2022-05-23] MEDS ORDERED: MoRPHine SULFATE 2 MG/ML CARP IV STA (23:26)
--- NOTE | 2022-05-24 01:31 | History & Physical Report ---
Date of Service May 24, 2022 Assessment & Plan (1) Acute right flank pain: Plan: Acute right flank pain/right rib cage pain/right seventh, eighth and ninth rib fractures- Patient was seen 2 days ago in the emergency department and noted to have these rib fractures. The patient's symptoms worsened when he was on his riding lawnmower, and reached over to move the limb and his belt squeezed on his rib cage and caused a significant return of symptoms His imaging does show an 8 mm gallbladder stone, however, the gallbladder itself looks normal, and liver tests are normal. The ED was somewhat concerned about the possibility of a gallbladder issue, however, there was no variation with diet in addition to the findings as noted in the line above An ultrasound of right upper quadrant was ordered by the ED, and I will order a HIDA scan in the morning to rule out the possibility of cholecystitis (2) Cholelithiasis: Plan: As noted on CT Ultrasound right upper quadrant of abdomen has been ordered by the ED I will order HIDA scan for the morning Symptoms more likely related to rib fractures (3) Acute kidney injury: Plan: Creatinine 1.58 on admission, with range 0.95-1.19 Hold spironolactone, potassium chloride, losartan and furosemide NSS at 80 mils per hour x1 L Recheck laboratories in a.m. (4) Hypertension: Plan: Continue metoprolol tartrate and terazosin Holding furosemide, losartan, potassium chloride and spironolactone as noted above (5) Abdominal aortic aneurysm (AAA) without rupture: Plan: Unchanged on imaging compared to previous, and without evidence of dissection (6) Right rib fracture: Plan: Add Lidoderm patch (7) Compression fracture of T8 vertebra: (8) T12 compression fracture: (9) Carcinoma of bladder: (10) Hyperlipidemia: Plan: Continue pravastatin 20 mg at bedtime (11) Right-sided chest pain: (12) RUQ abdominal pain: History of Present Illness Chief Complaint: The patient presents to the emergency department with complaint of right upper q uadrant and flank pain, that is worsened from his previous emergency department visit 2 days ago. He has persistent diarrhea since the beginning of the year. His pain does not change with eating or drinking, but does worsen with certain types of movements. He reports the pain intensified since discharge, when he was riding his tractor while cutting grass, and instead of getting up off the tractor to move a branch, he leaned over, and his belt put pressure on his side and caused severe pain Primary Care Provider: Bassam Silva DO The patient is an 86-year-old male with a past medical history including osteoporosis, hiatal hernia, vitamin D deficiency, lower extremity edema, bladder carcinoma, AAA without rupture, BPH with LUTS, hyperlipidemia, hypertension, hypokalemia, nephrolithiasis. He was diagnosed recently with rib fractures on the right side of 7, 8 and 9, which redemonstrated on CT of abdomen pelvis today. CT abdomen pelvis shows fluid throughout right and transverse colon, consistent with enteritis. Chest x-ray shows cardiomegaly and emphysema with hiatal hernia. Allergies Allergy/AdvReac Type Severity Reaction Status Date / Time No Known Allergies Allergy Verified 05/23/22 19:42 Home Medications Medication Instructions Recorded Confirmed Type aspirin 81 mg tablet,delayed 81 mg PO DAILY 05/03/18 05/23/22 History release btxisgiu-jvwr-ipyky acid 200 1 tab PO DAILY 01/11/19 05/23/22 History mcg-lycopene 5 mg-boron 250 mcg tablet (Bladder 2.2) losartan 25 mg tablet 25 mg PO DAILY 07/12/20 05/23/22 History furosemide 40 mg tablet 40 mg PO .COMPLEX 07/18/21 05/23/22 History metoprolol tartrate 25 mg tablet 25 mg PO DAILY 07/18/21 05/23/22 History potassium chloride 20 mEq 20 meq PO .COMPLEX 07/18/21 05/23/22 History tablet,extended release spironolactone 25 mg tablet 25 mg PO DAILY 07/18/21 05/23/22 History ubidecarenone-omega 3-vit E 50 1 cap PO DAILY 07/18/21 05/23/22 History mg-300 (180-120)mg-30 unit capsule pravastatin 20 mg tablet 20 mg PO HS #30 tabs 12/10/21 05/23/22 Rx tamsulosin 0.4 mg capsule 0.8 mg PO HS #60 caps 12/10/21 05/23/22 Rx terazosin 1 mg capsule 1 mg PO HS 05/23/22 05/23/22 History Past Med/Surg History Medical History Carcinoma of bladder Right rib fracture Ureter colic Surgical History History of bladder surgery Hx of replacement of aortic valve Family History Sister Cancer Grandmother Cancer Grandmother Diabetes Unknown Heart disease Father Myocardial infarction Other Family history non-contributory Denies family history of Ovarian cancer Prostate cancer Breast cancer Colorectal cancer Social History Smoking Status: Never smoker Second Hand Exposure: No; Hx Alcohol Use: Yes Alcohol type: hard liquor Hx Substance Use: No Preferred Language: Divehi Communication Ability: Effective Hearing Ability: Use of Hearing Aid 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 Beliefs That Will Affect Care: None marital status: Current Living Situation: Spouse Current Living Situation Comment: lives with in ranch house current occupational status: retired How many Children do You have: 2 Other Information That Helps Us Care for You: No Feels Safe at Home: Yes Childhood Exposure to Second-Hand Smoke: No caffeine: Yes Dental Care, Regularly: No Physical Activity Frequency: 3-4 Times per Week Seatbelt Use: always Sunscreen Use: No Assistive Devices: Glasses and Hearing Aid - Bilateral Review of Systems Review of Systems: The patient denies chest pain, palpitations, cough, lower extremity swelling, sore throat, fevers, chills, sweats, nausea, vomiting, blood in urine or stool, dysuria, urinary frequency or urgency, lightheadedness, dizziness, headache, memory loss, loss of consciousness, rash, abnormal bruising or bleeding, imbalance, focal or generalized weakness, numbness or tingling in arms or legs, generalized arthralgias or myalgias, neck pain, or night sweats. The review of systems is otherwise negative other than for that already noted above, and at least 10 systems have been reviewed. Physical Exam Physical Exam: The patient is awake, alert and oriented 3, well developed and well nourished, normocephalic and atraumatic, lying in bed and in no acute distress. HEENT--PERRL, EOMI, mucous membranes and oropharynx dry. Neck--supple. No JVD. No bruits. Thyroid normal, trachea midline, no adenopathy. Heart--normal S1 and S2. No murmurs, rubs or gallops. Lungs--clear bilaterally, no respiratory distress, no accessory muscle use. Abdomen--normal bowel sounds and soft. Mild right upper quadrant, right flank and lower chest wall and rib reproducible pain Extremities--no cyanosis or clubbing. No edema. Dermatologic--normal skin turgor, normal color, no abnormal lymph nodes, no rash. Neurologic--cranial nerves II through XII grossly intact. Rheumatologic--limited exam due to right lower rib cage pain Psychiatric--normal affect. Results & Data Results & Data ([facility]) Vital Signs (Past 12 Hours) Vital Signs Temp Pulse Pulse Resp BP BP Pulse Ox 05/24/22 00:58 84 16 123/70 96 05/23/22 23:00 86 16 154/75 H 94 05/23/22 22:36 82 16 154/75 H 92 05/23/22 21:00 85 16 154/75 H 94 05/23/22 19:10 80 16 143/76 H 94 05/23/22 18:10 83 16 96 05/23/22 18:10 36.6 C 84 16 143/76 H 95 O2 Del Method 05/24/22 00:58 Room Air 05/23/22 23:00 Room Air 05/23/22 22:36 Room Air 05/23/22 21:00 Room Air 05/23/22 19:10 Room Air 05/23/22 18:10 Room Air 05/23/22 18:10 Room Air Laboratory Results Laboratory Results WBC 6.88 K/ul (4.8-10.8) 05/23/22 18:54 RBC 3.96 M/uL (4.63-6.08) L 05/23/22 18:54 Hgb 12.6 g/dl (14.0-18.0) L 05/23/22 18:54 Hct 35.8 % (40.1-51.0) L 05/23/22 18:54 MCV 90.4 fL (80.0-100.0) 05/23/22 18:54 MCH 31.8 pg (25.0-34.0) 05/23/22 18:54 MCHC 35.2 g/dL (32.0-36.0) 05/23/22 18:54 RDW Std Deviation 43.4 fL (36.4-46.3) 05/23/22 18:54 RDW Coeff of Lnodon 13.1 % (11.5-14.5) 05/23/22 18:54 Plt Count 167 K/uL (130-400) 05/23/22 18:54 MPV 9.3 fL (9.4-12.4) L 05/23/22 18:54 Immature Gran % (Auto) 0.1 % 05/23/22 18:54 Neut % (Auto) 66.2 % 05/23/22 18:54 Lymph % (Auto) 12.9 % 05/23/22 18:54 Potter % (Auto) 18.0 % 05/23/22 18:54 Eos % (Auto) 2.5 % 05/23/22 18:54 Baso % (Auto) 0.3 % 05/23/22 18:54 Neut # (Auto) 4.55 K/uL (1.4-6.5) 05/23/22 18:54 Lymph # (Auto) 0.89 K/uL (1.2-3.4) L 05/23/22 18:54 Potter # (Auto) 1.24 K/uL (0.24-0.82) H 05/23/22 18:54 Eos # (Auto) 0.17 K/uL (0-0.50) 05/23/22 18:54 Baso # (Auto) 0.02 K/uL (0-0.2) 05/23/22 18:54 Immature Gran # (Auto) 0.01 K/uL (0.00-0.02) 05/23/22 18:54 Sodium 131 mmol/L (136-145) L 05/23/22 18:54 Potassium 3.6 mmol/L (3.5-5.1) 05/23/22 18:54 Chloride 100 mmol/L (98-107) 05/23/22 18:54 Carbon Dioxide 22 mmol/L (21-32) 05/23/22 18:54 Anion Gap 9 (3-11) 05/23/22 18:54 BUN 24 mg/dl (6-23) H 05/23/22 18:54 Creatinine 1.58 mg/dl (0.6-1.4) H 05/23/22 18:54 Est Cr Clr Drug Dosing 32.0 ml/min 05/23/22 18:54 Est GFR ( Amer) 45.6 ml/min 05/23/22 18:54 Est GFR (Non-Af Amer) 39.3 ml/min 05/23/22 18:54 BUN/Creatinine Ratio 15.2 (10-20) 05/23/22 18:54 Glucose 100 mg/dl (70-99(Fasting)) H 05/23/22 18:54 Calcium 8.8 mg/dl (8.5-10.1) 05/23/22 18:54 Total Bilirubin 0.8 mg/dl (0.2-1.0) 05/23/22 18:54 AST 18 U/L (13-39) 05/23/22 18:54 ALT 16 U/L (7-52) 05/23/22 18:54 Alkaline Phosphatase 64 U/L (34-104) 05/23/22 18:54 Troponin I High Sens 6.9 pg/ml (0-20) 05/23/22 18:54 Total Protein 6.2 gm/dl (6.0-8.3) 05/23/22 18:54 Albumin 3.8 gm/dl (3.4-5.0) 05/23/22 18:54 Globulin 2.4 gm/dl (2.5-4.0) L 05/23/22 18:54 Albumin/Globulin Ratio 1.6 (0.9-2) 05/23/22 18:54 Lipase 5 U/L (11-82) L 05/23/22 18:54 Urine Color Yellow 05/23/22 21:13 Urine Appearance Clear (Clear) 05/23/22 21:13 Urine pH 5.5 (4.5-7.5) 05/23/22 21:13 Ur Specific [place] 1.039 (1.000-1.030) H 05/23/22 21:13 Urine Protein Negative (Negative) 05/23/22 21:13 Urine Glucose (UA) Negative (Negative) 05/23/22 21:13 Urine Ketones Trace (Negative) H 05/23/22 21:13 Urine Blood Negative (Negative) 05/23/22 21:13 Urine Nitrite Negative (Negative) 05/23/22 21:13 Urine Bilirubin Negative (Negative) 05/23/22 21:13 Urine Urobilinogen Negative (Negative) 05/23/22 21:13 Ur Leukocyte Esterase Negative (Negative) 05/23/22 21:13 SARS-CoV-2, RNA, NAAT NEGATIVE (NEGATIVE) 05/24/22 00:11 Impressions Chest X-Ray 05/23/22 18:22 SINGLE VIEW CHEST CLINICAL HISTORY: Right flank pain FINDINGS: An AP, portable, upright chest radiograph is compared to chest x-ray and chest CT dated 05/21/2022. A hiatal hernia is noted. The patient is status post midline sternotomy. The heart is enlarged noting atherosclerotic calcification of the thoracic aorta. The pulmonary vasculature is noncongested. Emphysema and chronic interstitial thickening is similar to previous. There is chronic elevation of the right hemidiaphragm with bibasilar scarring/atelectasis. No airspace consolidation or large pleural effusion is identified. No pneumothorax is seen. The skeletal structures are osteopenic. The bony thorax is grossly intact. Surgical clips project over the right axilla. IMPRESSION: 1. Cardiomegaly and emphysema with no acute cardiopulmonary abnormality identified. 2. Hiatal hernia. ACT 112: Negative or not required by law. Electronically signed by: Ced Gonzalez M.D. 05/23/2022 7:11 PM Diagnostic Findings [facility] Patient: MC RODRIGUEZ (Male) : 37 Status: ER Date: 05/23/22 20:15 Room #: History: hx of kidney stones, and AAA. Slices: [id number] Priors: Tech: Rosa Maria High @ [phone] Exams: CT ABDOMEN & PELVIS Without Contrast Contrast: IV Amt: 117ml Accession Numbers: [id number] Referring Physician: REFERRED SELF Preliminary Findings Only See Final Report For Complete Findings ADDENDUM - Added by Toribio Marie MD on 05/23/2022 11:24 PM (-06:00) Addendum: Additional postcontrast CTA images are received. There is chronic aneurysm or dissection of the abdominal aorta measuring a maximum of 3.5 cm in diameter. The mesenteric and renal arteries arise from the true lumen and are patent. No arterial thrombus is seen. The false lumen extends down the right common iliac and external iliac arteries. There is approximately 60% stenosis of the right common iliac artery. The right external iliac and common femoral arteries are widely patent. The configuration is unchanged since previous. No aneurysm rupture or leakage. CT ABDOMEN & PELVIS Without Contrast: Comparison to May 21, 2022. There are scattered gas fluid levels throughout a fluid-filled distended but nondilated right and transverse colon consistent with enteritis. There is mode rate diverticulosis of the sigmoid colon without focal diverticulitis. The kidneys appear within normal limits. No hydronephrosis or ureterolithiasis is seen. Previous dissection and up to 3.5 cm aneurysmal dilation of the abdominal aorta and right common iliac artery. The configuration appears unchanged on this noncontrast study. No signs of rupture or hemorrhage. There is a 6.8 cm hiatal hernia. Previous CABG with severe coronary calcification. The heart is mildly enlarged. There is a 8 mm calcified gallstones within the dependent portion of a distended but nondilated gallbladder. No surrounding inflammation or biliary duct dilation is seen. The liver, pancreas, spleen, and adrenal glands are within normal limits. Mild degenerative changes throughout the spine, unchanged. No acute fracture or subluxation is seen. Radiologist: Toribio Marie MD Study ready at 20:19 and initial results transmitted at 22:06 *This report constitutes a preliminary interpretation only. Non-acute findings felt to be unrelated to the clinical presentation may not be discussed in this report. The study will be interpreted and a final report will be generated by the local Radiologist the following shift. To reach the [facility] radiology department call [phone]. If a discrepancy is found between the preliminary and final interpretations of this study, please notify us via our Client Portal at [email or web address] under QA Exams. You can also fax this report with a description of the discrepancy, or include the final report, to our daytime fax number [phone]. If faxing, please indicate the severity of discrepancy using one of the following categories: [ ] 1 - Agree/Informational [ ] 2 - Unlikely to Affect Management [ ] 3 - Possible Eventual Change of Management [ ] 4 - Probable Immediate Change of Management For all other patient related information, please fax us at [phone]. [id number] Code Status & VTE Plan Code Status Full code VTE Prophylaxis Plan VTE Prophylaxis will be ordered: Yes (1) Right rib fracture Encounter type: subsequent encounter Fracture healing: with routine healing Fracture type: closed Rib fracture type: multiple ribs Qualified Code(s): S22.41XD - Multiple fractures of ribs, right side, subsequent encounter for fracture with routine healing (2) Compression fracture of T8 vertebra Encounter type: initial encounter Qualified Code(s): S22.060A - Wedge compression fracture of T7-T8 vertebra, initial encounter for closed fracture
[2022-05-24] MEDS ORDERED: SODIUM CHLORIDE 0.9% 1000ML 1,000 ML IV SCH (02:00)
[2022-05-24] MEDS ORDERED: ONDANSETRON INJ 2 MG/ML 2 ML VIAL IV PRN (02:00)
[2022-05-24] MEDS: ACETAMINOPHEN 325 MG TAB PO PRN ×2 (02:18→11:12)
[2022-05-24] MEDS ORDERED: HYDROmorphone INJ 0.5 MG/0.5 ML SYR IV STA (02:30)
--- NOTE | 2022-05-24 04:51 | Billing Data ---
Date of Service May 24, 2022 Coding Level of Care Code 97574 Initial Inpt Care Lvl 3
--- NOTE | 2022-05-24 07:45 | Ultrasound Report ---
ULTRASOUND RIGHT UPPER QUADRANT ABDOMEN CLINICAL HISTORY: Right upper quadrant abdominal pain. COMPARISON STUDY: Abdominal CT dated 04/22/2022. TECHNIQUE: Real-time, grayscale, and color flow sonography of the right upper quadrant of the abdomen was performed. Images are reviewed in the transverse and longitudinal planes. FINDINGS: Liver: The liver is normal in size and echotexture. There is no intrahepatic biliary ductal dilatatio n. The main portal vein is patent. Gallbladder: The gallbladder is distended. An 11 mm nonmobile calculus is seen in the region of the g allbladder neck. There is no gallbladder wall thickening or pericholecystic fluid. A sonographic Murp hy's sign is reportedly absent. The common bile duct measures up to 0.7 cm in diameter. Pancreas: Visualized portions of the pancreatic head are normal in appearance. The majority of the pa ncreas was not visualized due to overlying bowel gas. Right kidney: Survey images of the right kidney demonstrate mild cortical atrophy. Echotexture is nor mal. There is no hydronephrosis. Ascites: None. IMPRESSION: 1. Distended gallbladder with a nonmobile gallstone in the region of the gallbladder neck. There is n o definitive sonographic evidence of acute cholecystitis at the time of examination. If there is stro ng clinical concern for cholecystitis a nuclear hepatobiliary scan should be considered. 2. There is no intrahepatic biliary duct dilatation. ACT 112: Negative or not required by law. Electronically signed by: Ced Gonzalez M.D. 05/24/2022 7:44 AM
[2022-05-24] MEDS: LIDOCAINE 5% 1 PATCH TD SCH (08:40)
[2022-05-24] MEDS: METOPROLOL TARTRATE 25 MG TAB PO SCH (08:40)
[2022-05-24] MEDS: CEROVITE ADV FORMULA TAB PO SCH (08:40)
[2022-05-24] MEDS: ASPIRIN 81 MG ECTAB PO SCH (08:40)
--- NOTE | 2022-05-24 08:45 | CT Scan Report ---
CT angio abdomen wo/w con CLINICAL HISTORY: right flank pain, recent T8 comp, hx of stones,AAA TECHNIQUE: Multidetector row helical CT of the abdomen and pelvis was performed, following intravenou s administration of iodinated contrast. No oral contrast was administered. Automated dose lowering te chniques and/or adjustment according to patient size were utilized for this exam. Coronal and sagitta l reformations were obtained. MIP and 3D volume rendered reconstructions were obtained. CT DOSE: 1454.59 mGy.cm Comparison: Comparison is made to CT abdomen pelvis 05/21/[address] chest 05/21/2022 FINDINGS: Lower chest: Atelectasis is seen at the lung bases. Severe atherosclerotic disease is noted. Postsur gical changes of coronary artery bypass graft noted. Liver: Unremarkable. No focal lesions are seen. Gallbladder and biliary tree: Cholelithiasis is seen without evidence of cholecystitis. No intra- or extrahepatic biliary ductal dilation. Pancreas: Unremarkable, no focal lesions. Spleen: Unremarkable. Adrenals: Nodular thickening is seen in the left adrenal gland. Kidneys and ureters: Perinephric stranding is noted bilaterally. Bladder: Unremarkable. Reproductive organs: Prostatomegaly is seen. Bowel: Diverticulosis is seen without evidence of diverticulitis. The pelvic contents are seen in the colon. A moderate hiatal hernia is seen. Lymph nodes Retroperitoneal: Unremarkable. Pelvic: Unremarkable. Mesenteric: Unremarkable. Peritoneum: Normal. Abdominal wall: Unremarkable. Bones: Degenerative changes in the visualized spine. Subacute right rib fractures are partially seen, similar to prior CT chest. CT angiogram: There is a chronic infrarenal aortic aneurysm. This measures up to 31 mm. There is a ao rtic dissection that originates in the lower thoracic aorta and extends to the right external iliac a rtery. The great vessels appear to originate from the true lumen. There is involvement of the superio r mesenteric artery. Focal aneurysmal enlargement is also seen in the right external iliac artery, me asuring up to 32 mm in diameter. 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 The origins of the celiac axis, superior mesenteric, inferior mesenteric and bilateral renal arteries are patent. IMPRESSION: Redemonstration of chronic dissection and aneurysm as above. ACT 112: Negative or not required by law. Electronically signed by: Randolph Blanco M.D. 05/24/2022 8:43 AM
[2022-05-24] MEDS ORDERED: [UNRECOGNIZED DRUG - OTHER] PO SCH (09:00)
[2022-05-24] MEDS ORDERED: UBIDECARENONE PO SCH (09:00)
[2022-05-24] MEDS ORDERED: VITAMIN E PO SCH (09:00)
[2022-05-24 09:32] LABS: Hematocrit (blood only) 35.8 % (40.1-51.0); Hemoglobin 12.5 g/dl (14.0-18.0); Mean Corpuscular Hemoglobin 31.9 pg (25.0-34.0); Mean Corpuscular Hgb Conc 34.9 g/dL (32.0-36.0); Mean Corpuscular Volume 91.3 fL (80.0-100.0); Mean Platelet Volume 8.8 fL (9.4-12.4); Platelet Count 143 K/uL (130-400); RDW Coefficient of Variation 13.2 % (11.5-14.5); RDW Standard Deviation 44.3 fL (36.4-46.3); Red Blood Count 3.92 M/uL (4.63-6.08); White Blood Count 4.54 K/ul (4.8-10.8)
[2022-05-24 10:05] LABS: Albumin Level 3.5 gm/dl (3.4-5.0); BUN Creatinine Ratio 17.6 (10-20); Bilirubin Direct 0.1 mg/dl (0-0.2); Bilirubin,Total 0.8 mg/dl (0.2-1.0); Calcium 8.2 mg/dl (8.5-10.1); Creatinine Clr Calc Pharmacy 55.5 ml/min; Est GFR (African American) 88.8 ml/min; Est GFR (Non-African American) 76.6 ml/min; Potassium 3.7 mmol/L (3.5-5.1); Total Protein 5.8 gm/dl (6.0-8.3)
--- NOTE | 2022-05-24 10:06 | Electrocardiogram Report ---
Test Reason : Blood Pressure : / mmHG Vent. Rate : 063 BPM Atrial Rate : 063 BPM P-R Int : 236 ms QRS Dur : 138 ms QT Int : 422 ms P-R-T Axes : -18 -07 006 degrees QTc Int : 431 ms Sinus rhythm with sinus arrhythmia with 1st degree A-V block Right bundle branch block Abnormal ECG When compared with ECG of 21-MAY-2022 17:33, Premature atrial complexes are no longer Present Confirmed by Jamie Mott ([id number]) on 05/24/2022 10:06:33 AM Referred By: REFERRED SELF Confirmed By:Jamie Mott
[2022-05-24 10:25] LABS: Lyme Ab IgG w/WB Rflx Negative (Negative); Lyme Ab IgM w/WB Rflx Negative (Negative)
--- NOTE | 2022-05-24 12:09 | History & Physical Bridge Note ---
Date of Service May 24, 2022 History & Physical Bridge Note I have examined the patient, reviewed the History & Physical and in the interval since the performance of the History & Physical I have noted the following changes of clinical significance: no changes noted Evaluated this morning, resting in bed. Having intermittent abdominal pain depending on which way he moves. Controlled with ordered medications. Diarrhea ongoing, has had per reports ongoing loose stools (brown in color) for about the past 9 months. Awaiting HIDA scan, no answer in department -- per clinical coordinator, no one in today. Asked to call in tech to be able to complete scan for tomorrow. Pending HIDA, may need consultation with general surgery given CTAP on admit w/ cholelithiasis w/o evidence for acute zia. US GB with distended GB and 11mm nonmobile calculus. Patient tender to palpation RUQ on exam, +Wray sign Will change diet to low fat in the meantime. On IVF for CATARINO w/ Cr 1.58 on admit, repeat improved to 0.91. IVF to complete after current bag Resume spironolactone/losartan tomorrow. Monitor labs in AM
[2022-05-24] MEDS ORDERED: DICYCLOMINE HCL 10 MG CAP PO PRN (16:40)
[2022-05-24] MEDS: oxyCODONE HCL IR 5 MG TAB (IMMEDIATE RELEASE) PO PRN ×2 (17:06→21:41)
[2022-05-24] MEDS: TERAZOSIN HCL 1 MG CAP PO SCH (21:35)
[2022-05-24] MEDS: TAMSULOSIN HCL 0.4 MG CAP PO SCH (21:36)
[2022-05-25 05:33] LABS: Hematocrit (blood only) 35.1 % (40.1-51.0); Hemoglobin 12.2 g/dl (14.0-18.0); Mean Corpuscular Hemoglobin 31.9 pg (25.0-34.0); Mean Corpuscular Hgb Conc 34.8 g/dL (32.0-36.0); Mean Corpuscular Volume 91.9 fL (80.0-100.0); Mean Platelet Volume 9.2 fL (9.4-12.4); Platelet Count 150 K/uL (130-400); RDW Coefficient of Variation 13.3 % (11.5-14.5); RDW Standard Deviation 44.8 fL (36.4-46.3); Red Blood Count 3.82 M/uL (4.63-6.08); White Blood Count 5.81 K/ul (4.8-10.8)
[2022-05-25 05:56] LABS: Albumin Level 3.4 gm/dl (3.4-5.0); BUN Creatinine Ratio 19.1 (10-20); Bilirubin Direct 0.1 mg/dl (0-0.2); Bilirubin,Total 0.7 mg/dl (0.2-1.0); Calcium 8.3 mg/dl (8.5-10.1); Creatinine Clr Calc Pharmacy 53.7 ml/min; Est GFR (African American) 85.3 ml/min; Est GFR (Non-African American) 73.6 ml/min; Magnesium 1.9 mg/dl (1.7-2.4); Potassium 3.8 mmol/L (3.5-5.1); Total Protein 5.7 gm/dl (6.0-8.3)
[2022-05-25] MEDS: SPIRONOLACTONE 25 MG TAB PO SCH (08:30)
[2022-05-25] MEDS: LOSARTAN POTASSIUM 25 MG TAB PO SCH (08:30)
[2022-05-25] MEDS: CEROVITE ADV FORMULA TAB PO SCH (08:30)
[2022-05-25] MEDS: ASPIRIN 81 MG ECTAB PO SCH (08:30)
[2022-05-25] MEDS: METOPROLOL TARTRATE 25 MG TAB PO SCH (08:30)
[2022-05-25] MEDS: LIDOCAINE 5% 1 PATCH TD SCH (08:31)
[2022-05-25] MEDS: oxyCODONE HCL IR 5 MG TAB (IMMEDIATE RELEASE) PO PRN ×3 (08:39→18:12)
--- NOTE | 2022-05-25 13:56 | Hospitalist Progress Note ---
Date of Service May 25, 2022 Assessment & Plan (1) Acute right flank pain: Plan: Acute right flank pain/right rib cage pain/right seventh, eighth and ninth rib fractures- - Patient was seen 2 days ago in the emergency department and noted to have these rib fractures. - The patient's symptoms worsened when he was on his riding lawnmower, and reached over to move the limb and his belt squeezed on his rib cage and caused a significant return of symptoms - His imaging does show an 8 mm gallbladder stone, however, the gallbladder itself looks normal, and liver tests are normal. - The ED was somewhat concerned about the possibility of a gallbladder issue, however, there was no variation with diet in addition to the findings as noted in the line above - An ultrasound of right upper quadrant was ordered by the ED, and I will order a HIDA scan in the morning to rule out the possibility of cholecystitis (2) Cholelithiasis: Plan: As noted on CT - Ultrasound right upper quadrant of abdomen has been ordered by the ED - Given appearance of ultrasound and lack of available staff to do HIDA over the weekend, consult general surgery - Appreciate assistance, appears he is planned for lap zia tomorrow (05/26), NPO after MN (3) Acute kidney injury: Plan: Creatinine 1.58 on admission, with range 0.95-1.19 - Held spironolactone, potassium chloride, losartan and furosemide - NSS at 80 mils per hour x1 L - Repeat labs noted return of renal function to baseline, this issue has resolved (4) Hypertension: Plan: Continue metoprolol tartrate and terazosin - Holding furosemide, losartan, potassium chloride and spironolactone as noted above - Despite holding these meds, BP is acceptably controlled (5) Abdominal aortic aneurysm (AAA) without rupture: Plan: Unchanged on imaging compared to previous, and without evidence of dissection (6) Right rib fracture: Plan: Add Lidoderm patch (7) Compression fracture of T8 vertebra: Plan: Compression Fxs T8 and T12 - Pain control - Therapy eval (8) Carcinoma of bladder: (9) Hyperlipidemia: Plan: Continue pravastatin 20 mg at bedtime Plan Patient is medically stable to proceed with planned lap zia tomorrow with Dr. Sood. NPO after MN. Plan d/w Dr. Vergara. Admission and Anticipated Discharge Date Admission Date: May 24, 2022 Subjective Patient seen on daily rounds this morning. He is resting in bed, reports some nausea but seemed to tolerate breakfast. No abd pain, v/d. No cp or dyspnea. Was supposed to have a HIDA scan today but no staff to perform test over the weekend. Review of Systems Review of Systems: All systems reviewed and are unremarkable except as noted in HPI and below. Denies fever, chills, fatigue, headache, nasal congestion, sore throat, cough, chest pain, shortness of breath, palpitations, orthopnea, PND, abdominal pain, v/d, constipation, dysuria, hematuria, frequency, back pain, joint pain or swelling, easy bruising or bleeding, skin lesions or rashes. Physical Exam Physical Exam: GENERAL: 86 yo Well-developed, well-nourished elderly WM. NAD. LUNGS: Clear to auscultation bilaterally. No W/R/R. CARDIOVASCULAR: Regular rate and rhythm. No M/G/R. No JVD. ABDOMEN: Soft, non-distended. BS normoactive x 4 quad. TTP in RUQ. EXTREMITIES: No edema. Non-tender. Peripheral pulses +2/4. NEUROLOGIC: A&O x3. PSYCHIATRIC: Cooperative. Appropriate mood and affect. SKIN: Warm, dry, intact. No rashes or lesions. Results & Data Results & Data ([facility]) Vital Signs (Past 12 Hours) Vital Signs Temp Pulse Resp BP Pulse Ox O2 Del Method 05/25/22 07:10 36.5 C 67 16 132/68 93 Room Air Laboratory Results 05/25/22 05:19 05/25/22 05:19 Diagnostic Findings Gallbladder Ultrasound 05/24/22 23:26 ULTRASOUND RIGHT UPPER QUADRANT ABDOMEN CLINICAL HISTORY: Right upper quadrant abdominal pain. COMPARISON STUDY: Abdominal CT dated 04/22/2022. TECHNIQUE: Real-time, grayscale, and color flow sonography of the right upper quadrant of the abdomen was performed. Images are reviewed in the transverse and longitudinal planes. FINDINGS: Liver: The liver is normal in size and echotexture. There is no intrahepatic biliary ductal dilatation. The main portal vein is patent. Gallbladder: The gallbladder is distended. An 11 mm nonmobile calculus is seen in the region of the gallbladder neck. There is no gallbladder wall thickening or pericholecystic fluid. A sonographic Wray's sign is reportedly absent. The common bile duct measures up to 0.7 cm in diameter. Pancreas: Visualized portions of the pancreatic head are normal in appearance. The majority of the pancreas was not visualized due to overlying bowel gas. Right kidney: Survey images of the right kidney demonstrate mild cortical atrophy. Echotexture is normal. There is no hydronephrosis. Ascites: None. IMPRESSION: 1. Distended gallbladder with a nonmobile gallstone in the region of the gallbladder neck. There is no definitive sonographic evidence of acute cholecystitis at the time of examination. If there is strong clinical concern for cholecystitis a nuclear hepatobiliary scan should be considered. 2. There is no intrahepatic biliary duct dilatation. ACT 112: Negative or not required by law. Electronically signed by: Ced Gonzalez M.D. 05/24/2022 7:44 AM PG Care Time/CCT Total # of Minutes Spent Total Time Spent with Patient: Total time spent is greater than 50% in coordination of care (as documented) at patient's floor/unit and/or counseling patient: Coding Level of Care Code 81345 Subseq Hosp Care Lvl 2 Diagnoses Acute right flank pain R10.9 Cholelithiasis K80.20 Acute kidney injury N17.9 Hypertension I10 Abdominal aortic aneurysm (AAA) without rupture I71.4 Right rib fracture S22.41XD Encounter type: subsequent encounter Fracture healing: with routine healing Fracture type: closed Rib fracture type: multiple ribs Compression fracture of T8 vertebra S22.060A Encounter type: initial encounter Carcinoma of bladder C67.9 Hyperlipidemia E78.5 (1) Compression fracture of T8 vertebra Encounter type: initial encounter Qualified Code(s): S22.060A - Wedge compression fracture of T7-T8 vertebra, initial encounter for closed fracture (2) Right rib fracture Encounter type: subsequent encounter Fracture healing: with routine healing Fracture type: closed Rib fracture type: multiple ribs Qualified Code(s): S22.41XD - Multiple fractures of ribs, right side, subsequent encounter for fracture with routine healing
--- NOTE | 2022-05-25 13:57 | Anesthesiology Consultation ---
Date of Service May 25, 2022 Assessment & Plan Chart Review Chart Review: Acceptable Risk for Surgery Consults Requested none ASA ASA3 Proposed Anesthesia Anesthesia Type: General Risk / Benefits Reviewed With: PT / POA / Parent / Guardian, Accepts Plan and Informed Consent Obtained History Surgery Operation Date: 05/26/22 09:00 Proposed Procedures p Laparoscopic Cholecystectomy - Luis Sood MD Height/Weight Height: 5 ft 7 in Weight: 76.7 kg Allergies Allergy/AdvReac Type Severity Reaction Status Date / Time No Known Allergies Allergy Verified 05/23/22 19:42 Medications Home Medications Medication Instructions Recorded Confirmed Last Taken aspirin 81 mg tablet,delayed 81 mg PO DAILY 05/03/18 05/23/22 05/23/22 release touezwow-jblv-srmlm acid 200 1 tab PO DAILY 01/11/19 05/23/22 05/23/22 mcg-lycopene 5 mg-boron 250 mcg tablet (Bladder 2.2) losartan 25 mg tablet 25 mg PO DAILY 07/12/20 05/23/22 05/23/22 furosemide 40 mg tablet 40 mg PO .COMPLEX 07/18/21 05/23/22 05/23/22 metoprolol tartrate 25 mg tablet 25 mg PO DAILY 07/18/21 05/23/22 05/23/22 potassium chloride 20 mEq 20 meq PO .COMPLEX 07/18/21 05/23/22 05/23/22 tablet,extended release spironolactone 25 mg tablet 25 mg PO DAILY 07/18/21 05/23/22 05/23/22 ubidecarenone-omega 3-vit E 50 1 cap PO DAILY 07/18/21 05/23/22 05/23/22 mg-300 (180-120)mg-30 unit capsule pravastatin 20 mg tablet 20 mg PO HS #30 tabs 12/10/21 05/23/22 05/22/22 tamsulosin 0.4 mg capsule 0.8 mg PO HS #60 caps 12/10/21 05/23/22 05/22/22 terazosin 1 mg capsule 1 mg PO HS 05/23/22 05/23/22 05/22/22 Active Medications Generic Name Dose Route Start Last Admin Trade Name Freq PRN Reason Stop Dose Admin Acetaminophen 650 mg 05/24/22 02:00 05/24/22 11:12 Acetaminophen 325 Mg Tab PO 06/23/22 01:59 650 mg Q4H PRN Administration Pain or Fever Aspirin 81 mg 05/24/22 09:00 05/25/22 08:30 Aspirin 81 Mg Ectab PO 06/23/22 08:59 81 mg DAILY HETAL Administration Lidocaine 1 patch 05/24/22 09:00 05/25/22 08:31 Lidocaine 5% 1 Patch TD 06/23/22 08:59 1 patch DAILY HETAL Administration Losartan Potassium 25 mg 05/25/22 09:00 05/25/22 08:30 Losartan Potassium 25 Mg Tab PO 06/24/22 08:59 25 mg QAM HETAL Administration Metoprolol Tartrate 25 mg 05/24/22 09:00 05/25/22 08:30 Metoprolol Tartrate 25 Mg Tab PO 06/23/22 08:59 25 mg DAILY HETAL Administration Miscellaneous 1 each 05/24/22 21:00 05/24/22 21:35 Remove Lidoderm Patch N/A 06/23/22 20:59 Not Given DAILY@2100 [facility] Multivitamins/Minerals 1 tab 05/24/22 09:00 05/25/22 08:30 Cerovite Adv Formula Tab PO 06/23/22 08:59 1 tab DAILY HETAL Administration Oxycodone HCl 5 mg 05/24/22 16:39 05/25/22 13:33 Oxycodone Hcl Ir 5 Mg Tab (Immediate Release) PO 06/07/22 16:38 5 mg Q4H PRN Administration Pain Spironolactone 25 mg 05/25/22 09:00 05/25/22 08:30 Spironolactone 25 Mg Tab PO 06/24/22 08:59 25 mg QAM HETAL Administration Tamsulosin HCl 0.8 mg 05/24/22 21:00 05/24/22 21:36 Tamsulosin Hcl 0.4 Mg Cap PO 06/23/22 20:59 0.8 mg HS HETAL Administration Terazosin HCl 1 mg 05/24/22 21:00 05/24/22 21:35 Terazosin Hcl 1 Mg Cap PO 06/23/22 20:59 1 mg HS HETAL Administration NPO Date Last Intake of Fluids: 05/25/22 Time Last Intake of Fluids: 23:59 Date Last Intake of Solids: 05/25/22 Time Last Intake of Solids: 23:59 Last Intake of Solids Comment: Advised Past Medical History Medical History (Updated 05/25/22 @ 13:54 by Samra Schuster DO) 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 Compression fracture of T8 vertebra Diastolic dysfunction, left ventricle gr 1 Hiatal hernia Hyperlipidemia Hypertension Mitral regurgitation mild Nephrolithiasis Osteoporosis Right rib fracture T12 compression fracture Ureter colic Vitamin D deficiency Exercise / Class Metabolic Activity II 4-5 Yardwork/Stairs/Walk up hill Past Family History Family History Sister Cancer Grandmother Cancer Grandmother Diabetes Unknown Heart disease Father Myocardial infarction Other Family history non-contributory Denies family history of Ovarian cancer Prostate cancer Breast cancer Colorectal cancer Past Surgical History Surgical History (Updated 05/25/22 @ 13:54 by Samra Schsuter DO) History of bladder surgery Hx of replacement of aortic valve and Ao root graft 2004 Past Anesthesia History No Hx of Anesthesia Complications and No Family Hx of Anesthesia Complications History of PONV No Hx of PONV and No Hx of Motion Sickness Social History Smoking Status: Never smoker Hx Alcohol Use: Yes Alcohol type: hard liquor alcohol intake frequency: holidays/special occasions only Hx Substance Use: No Physical Exam Vital Signs Last Vital Signs Temp 36.5 C 05/25/22 07:10 Pulse 67 05/25/22 07:10 Resp 16 05/25/22 07:10 BP 132/68 05/25/22 07:10 Pulse Ox 93 05/25/22 07:10 O2 Del Method 05/25/22 07:10 ENMT Mouth: + dentition abnormality (7 bottom remain none loose) and + dentures (Up per); no TMJ abnormality Thyromental Distance: > or= 3.5 Finger Breadths Mallampati Class: II Neck normal visual inspection and trachea midline; neck extension not limited Respiratory normal respiratory effort Auscultation: lungs clear to auscultation bilaterally Cardiovascular Rate/Rhythm: regular rate and regular rhythm Heart Sounds: + murmur (4/6 natalie 2nd ics) Musculoskeletal Spine: normal cervical ROM Extremities: full ROM of extremities Neurologic moves all extremities Psychiatric Orientation: alert and oriented x 3 Testing Laboratory Results 05/25/22 05:19 05/25/22 05:19 Urine Color Yellow 05/23/22 21:13 Urine Appearance Clear (Clear) 05/23/22 21:13 Urine pH 5.5 (4.5-7.5) 05/23/22 21:13 Ur Specific [place] 1.039 (1.000-1.030) H 05/23/22 21:13 Urine Protein Negative (Negative) 05/23/22 21:13 Urine Glucose (UA) Negative (Negative) 05/23/22 21:13 Urine Ketones Trace (Negative) H 05/23/22 21:13 Urine Nitrite Negative (Negative) 05/23/22 21:13 Ur Leukocyte Esterase Negative (Negative) 05/23/22 21:13 Electrocardiogram Date: 05/24/22 Findings: + NSR @ (63bpm with 1st degree AVB) and + RBBB Chest X-Ray Date: 05/23/22 Findings: + NAD, + cardiomegaly and + R hemidiaphragm elevation emphysematous changes Echocardiogram Date: 02/09/20 EF: 55-59 LV Function: normal RWMA: + none Other Findings: + diastolic dysfunction (gr 1) Valvular Disease: + no significant valvular disease and + MR (mild) prosthetic AVR, NL size aortic root/ascending Ao
[2022-05-25] MEDS: TAMSULOSIN HCL 0.4 MG CAP PO SCH (19:54)
[2022-05-25] MEDS: TERAZOSIN HCL 1 MG CAP PO SCH (19:54)
[2022-05-26] MEDS ORDERED: ceFAZolin 2000MG 2,000 MG/15 ML SYR IV ONE (06:00)
[2022-05-26] MEDS: CEROVITE ADV FORMULA TAB PO SCH (07:26)
[2022-05-26] MEDS: METOPROLOL TARTRATE 25 MG TAB PO SCH (07:26)
[2022-05-26] MEDS: LOSARTAN POTASSIUM 25 MG TAB PO SCH (07:26)
[2022-05-26] MEDS: SPIRONOLACTONE 25 MG TAB PO SCH (07:27)
[2022-05-26] MEDS: ASPIRIN 81 MG ECTAB PO SCH (07:27)
--- NOTE | 2022-05-26 07:48 | History & Physical Report ---
Date of Service May 26, 2022 Assessment & Plan (1) Acute cholecystitis: Plan: IVF and IV abx to [place] for lap zia Present on Admission?: Yes Admission and Anticipated Discharge Date Admission Date: May 24, 2022 History of Present Illness Primary Care Provider: Bassam Silva, This is a 86YO male seen with right flank pain. A CT scan of the abdomen pelvis was performed and noted a distended gallbladder with a stone and inflamm atory changes. He has had pain but minimal nausea and no vomiting. US confirms likely acute cholecystitis. Allergies Allergy/AdvReac Type Severity Reaction Status Date / Time No Known Allergies Allergy Verified 05/23/22 19:42 Home Medications Medication Instructions Recorded Confirmed Type aspirin 81 mg tablet,delayed 81 mg PO DAILY 05/03/18 05/23/22 History release wjozcbkx-ygny-kyrup acid 200 1 tab PO DAILY 01/11/19 05/23/22 History mcg-lycopene 5 mg-boron 250 mcg tablet (Bladder 2.2) losartan 25 mg tablet 25 mg PO DAILY 07/12/20 05/23/22 History furosemide 40 mg tablet 40 mg PO .COMPLEX 07/18/21 05/23/22 History metoprolol tartrate 25 mg tablet 25 mg PO DAILY 07/18/21 05/23/22 History potassium chloride 20 mEq 20 meq PO .COMPLEX 07/18/21 05/23/22 History tablet,extended release spironolactone 25 mg tablet 25 mg PO DAILY 07/18/21 05/23/22 History ubidecarenone-omega 3-vit E 50 1 cap PO DAILY 07/18/21 05/23/22 History mg-300 (180-120)mg-30 unit capsule pravastatin 20 mg tablet 20 mg PO HS #30 tabs 12/10/21 05/23/22 Rx tamsulosin 0.4 mg capsule 0.8 mg PO HS #60 caps 12/10/21 05/23/22 Rx terazosin 1 mg capsule 1 mg PO HS 05/23/22 05/23/22 History Past Med/Surg History Medical History (Updated 05/26/22 @ 07:49 by Luis Sood MD) Acute cholecystitis 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 Compression fracture of T8 vertebra Diastolic dysfunction, left ventricle gr 1 Hiatal hernia Hyperlipidemia Hypertension Mitral regurgitation mild Nephrolithiasis Osteoporosis Right rib fracture T12 compression fracture Ureter colic Vitamin D deficiency Surgical History (Updated 05/25/22 @ 13:54 by Samra Schuster DO) History of bladder surgery Hx of replacement of aortic valve and Ao root graft 2004 Family History Sister Cancer Grandmother Cancer Grandmother Diabetes Unknown Heart disease Father Myocardial infarction Other Family history non-contributory Denies family history of Ovarian cancer Prostate cancer Breast cancer Colorectal cancer Social History Smoking Status: Never smoker Second Hand Exposure: No; Hx Alcohol Use: Yes Alcohol type: hard liquor Hx Substance Use: No Preferred Language: [place] Communication Ability: Effective Hearing Ability: Use of Hearing Aid Information Security Officer Required: No Beliefs That Will Affect Care: None marital status: Current Living Situation: Spouse Current Living Situation Comment: lives with in ranch house current occupational status: retired How many Children do You have: 1 Other Information That Helps Us Care for You: No Feels Safe at Home: Yes Childhood Exposure to Second-Hand Smoke: No caffeine: Yes Dental Care, Regularly: No Physical Activity Frequency: 3-4 Times per Week Seatbelt Use: always Sunscreen Use: No Assistive Devices: None Review of Systems no fever and no chills no cough and no dyspnea no chest pain and no radiating jaw, neck or arm pain + abdominal pain and + nausea; no vomiting no dysuria + back pain (right flank) no lesions no localized weakness and no generalized weakness no behavioral changes no fatigue Physical Exam Constitutional: WD/WN, vitals as above Eyes: PERRL, conjunctivae normal, anicteric sclerae ENMT: external ear and nose normal, oropharynx normal Neck: trachea midline Respiratory: normal respiratory effort, lungs clear to auscultation Cardiovascular: RRR, no murmur, no edema Gastrointestinal (Abdomen): Inspection/Auscultation: abdomen normal to inspection and normal bowel sounds; abdomen not distended Percussion/Palpation: + abdomen tender and abdomen soft; no guarding and abdomen not rigid Musculoskeletal: Head/Neck/Chest: normocephalic and head atraumatic Skin: no rashes, warm and dry Results & Data ([facility]) Vital Signs (Past 12 Hours) Vital Signs Temp Pulse Resp BP Pulse Ox O2 Del Method 05/26/22 07:20 36.6 C 85 18 120/74 93 Room Air 05/25/22 19:50 Room Air 05/25/22 21:25 36.8 C 69 18 143/71 H 96 Room Air Diagnostic Findings ULTRASOUND RIGHT UPPER QUADRANT ABDOMEN CLINICAL HISTORY: Right upper quadrant abdominal pain. COMPARISON STUDY: Abdominal CT dated 04/22/2022. TECHNIQUE: Real-time, grayscale, and color flow sonography of the right upper quadrant of the abdomen was performed. Images are reviewed in the transverse and longitudinal planes. FINDINGS: Liver: The liver is normal in size and echotexture. There is no intrahepatic biliary ductal dilatation. The main portal vein is patent. Gallbladder: The gallbladder is distended. An 11 mm nonmobile calculus is seen in the region of the gallbladder neck. There is no gallbladder wall thickening or pericholecystic fluid. A sonographic Wray's sign is reportedly absent. The common bile duct measures up to 0.7 cm in diameter. Pancreas: Visualized portions of the pancreatic head are normal in appearance. The majority of the pancreas was not visualized due to overlying bowel gas. Right kidney: Survey images of the right kidney demonstrate mild cortical atrophy. Echotexture is normal. There is no hydronephrosis. Ascites: None. IMPRESSION: 1. Distended gallbladder with a nonmobile gallstone in the region of the gallbladder neck. There is no definitive sonographic evidence of acute cholecystitis at the time of examination. If there is strong clinical concern for cholecystitis a nuclear hepatobiliary scan should be considered. 2. There is no intrahepatic biliary duct dilatation. Code Status & VTE Plan VTE Prophylaxis Plan VTE Prophylaxis will be ordered: Yes
[2022-05-26] MEDS ORDERED: MEPERIDINE HCL 25 MG/ML CARP/VIAL IV PRN (08:06)
[2022-05-26] MEDS ORDERED: ONDANSETRON INJ 2 MG/ML 2 ML VIAL IV PRN (08:06)
[2022-05-26] MEDS ORDERED: ALBUT/IPRATROP 3MG/0.5MG NEB 3 ML VIAL INH PRN (08:06)
[2022-05-26] MEDS ORDERED: ATROPINE SULFATE 0.1 MG/ML 10ML SYR IV PRN (08:06)
[2022-05-26] MEDS ORDERED: ePHEDrine sulfate 50 MG/ML AMP IV PRN (08:06)
[2022-05-26] MEDS ORDERED: DEXAMETHASONE SOD INJ 4 MG/ML VIAL ONE (09:01)
[2022-05-26] MEDS ORDERED: fentaNYL citrate 100 MCG/2 ML VIAL ONE ×2 (09:01→10:05)
[2022-05-26] MEDS ORDERED: LIDOCAINE 2% MPF LOCAL 5 ML VIAL INFIL ONE (09:01)
[2022-05-26] MEDS ORDERED: ONDANSETRON INJ 2 MG/ML 2 ML VIAL ONE (09:01)
[2022-05-26] MEDS ORDERED: PROPOFOL IV EMULSION 10 MG/ML 20 ML VIAL IV ONE (09:01)
[2022-05-26] MEDS ORDERED: ROCURONIUM BROMIDE 10 MG/ML 5 ML VIAL IV ONE (09:01)
[2022-05-26] MEDS ORDERED: BUPIVACAINE/EPINEPHRINE 0.5% MPF 1:200,000 10 ML VIAL ONE ×2 (09:15→10:21)
[2022-05-26] MEDS ORDERED: ceFAZolin 330 MG/ML 1 GM VIAL ONE (09:52)
[2022-05-26] MEDS ORDERED: ESMOLOL HCL INJ 10 MG/ML 10ML VIAL IV ONE (10:10)
[2022-05-26] MEDS ORDERED: KETOROLAC 30 MG/ML VIAL ONE (10:13)
[2022-05-26] MEDS ORDERED: ePHEDrine sulfate 50 MG/ML AMP ONE (10:24)
--- NOTE | 2022-05-26 10:31 | Post Operative Brief Note ---
Immediate Post Op Note v1 Date of Surgery May 26, 2022 Pre & Post Diagnosis Operation Date: 05/26/22 09:00 Pre-Op Diagnosis: Acute cholecystitis Post-Op Diagnosis: Acute cholecystitis I identified the patient and participated in the time-out.: Yes Procedure Operation Date: 05/26/22 09:00 Actual Procedures p Laparoscopic Cholecystectomy(Not Applicable) - Luis Sood MD Surgeon Luis Sood MD Grease And Tallow Pumper none Estimated Blood Loss 15 Findings Consistent with Post-Op Diagnosis
[2022-05-26] MEDS: fentaNYL citrate 100 MCG/2 ML VIAL IV PRN ×4 (10:45→11:00)
--- NOTE | 2022-05-26 10:56 | Operative Report (OR) ---
PREOPERATIVE DIAGNOSIS: Acute cholecystitis. POSTOPERATIVE DIAGNOSIS: Acute cholecystitis. PROCEDURE PERFORMED: Laparoscopic cholecystectomy. SURGEON: Luis Sood M.D. PIN DRAFTING MACHINE TENDER: None. ANESTHESIA: General endotracheal with 0.5% Marcaine with epinephrine local. ESTIMATED BLOOD LOSS: 15 mL. DRAINS: None. COMPLICATIONS: None. SPECIMENS: Gallbladder sent for pathologic evaluation. INDICATIONS FOR PROCEDURE: This is an 86-year-old male admitted with right flank/abdominal pain, who underwent a complete workup, which showed an ultrasound with a gallstone in the neck of his gallbladder and some inflammatory change. He was begun on IV fluids and IV antibiotics and I recommended laparoscopic cholecystectomy. I talked about the risk of an open procedure, common duct injury, retained common bile duct stone, and postoperative bile leak. He understands all this and wishes to proceed. DESCRIPTION OF PROCEDURE: The patient was taken to the OR, and underwent excellent general endotracheal anesthesia, the patient's abdomen was prepped and draped in normal sterile fashion. A transverse supraumbilical incision was made. Dissection was taken down to identify the anterior fascia. 2-0 Vicryl was placed on either side of midline. Midline was incised sharply. A Pablo trocar was then inserted. Good pneumoperitoneum was then achieved with 15 mmHg pressure. The patient was placed in head up and rolled to the left. A 11 subxiphoid and two 5 lateral ports were placed in normal fashion. A grasper laterally was used to retract the fundus of the gallbladder and there were some inflammatory adhesions and acute gallbladder with edema in the brody. Once the adhesions were taken down, the neck was identified and this was retracted laterally. Peritoneal attachments were taken down around the cystic duct and cystic artery. These were skeletonized creating the medial and lateral window between the gallbladder and gallbladder fossa. Once this critical view was seen, 3 clips were placed proximally and 1 distally and the cystic duct was transected. Two clips were placed on either side of the cystic artery and this was transected. Electrocautery hook was then used to remove the gallbladder from the gallbladder fossa. Gallbladder was then sent for pathologic evaluation. There was some bile leak, which was irrigated and suctioned to clear. There were some areas on the gallbladder fossa, which were oozing blood and these were cauterized. This was then irrigated out and suctioned clear and there was no active bleeding. Omentum was placed underneath the gallbladder fossa. The ports were removed and pneumoperitoneum was decompressed. 0 Vicryl was used to close the fascial defect. Interrupted Vicryl was used to close the skin. Marcaine 0.5% with epinephrine local was used to create local field block. Steri-Strips and benzoin were used for this incision. Sterile dressings were applied. The patient tolerated the procedure well without complications and sent to postop recovery for a period of observation. He then will be sent to the floor for his care. Job ID: [id number] [facility]
[2022-05-26] MEDS: MoRPHine SULFATE 10 MG/ML CARP/VIAL IV PRN ×2 (11:05→11:10)
[2022-05-26] MEDS ORDERED: MoRPHine SULFATE 4 MG/ML 1 ML CARP\\VIAL IV PRN (11:43)
[2022-05-26] MEDS ORDERED: MoRPHine SULFATE 2 MG/ML CARP IV PRN (11:43)
[2022-05-26] MEDS: LIDOCAINE 5% 1 PATCH TD SCH (11:56)
--- NOTE | 2022-05-26 12:16 | Anesthesiology Progress Note ---
Date of Service May 26, 2022 Anesthesia Post Procedure Vital Signs Vital Signs: Temp Pulse Pulse Resp BP Pulse Ox O2 Del Method 05/26/22 12:08 36.4 C L 59 L 16 115/68 95 Nasal Cannula 05/26/22 11:54 36.4 C L 56 L 18 139/70 95 Nasal Cannula 05/26/22 11:25 36.4 C L 61 12 130/66 94 Nasal Cannula 05/26/22 11:15 59 L 12 130/68 93 Nasal Cannula 05/26/22 11:05 63 23 132/88 94 Oxymask 05/26/22 10:55 68 20 146/77 H 94 Oxymask 05/26/22 10:45 67 15 145/75 H 95 Oxymask 05/26/22 10:37 36.0 C L 88 20 144/69 H 93 Oxymask 05/26/22 07:20 36.6 C 85 18 120/74 93 Room Air 05/25/22 19:50 Room Air 05/25/22 21:25 36.8 C 69 18 143/71 H 96 Room Air 05/25/22 15:30 36.7 C 65 16 115/61 92 Room Air O2 Flow Rate 05/26/22 12:08 2 05/26/22 11:54 2 05/26/22 11:25 2 05/26/22 11:15 2 05/26/22 11:05 4 05/26/22 10:55 4 05/26/22 10:45 6 05/26/22 10:37 8 05/26/22 07:20 05/25/22 19:50 05/25/22 21:25 05/25/22 15:30 Pain Intensity Right Flank: Pain Intensity: 7 Abdomen: Pain Intensity: 7 Transfer of Care Handoff Completed per policy Notes Mental Status: alert / awake / arousable Patient Amnestic to Procedure: Yes Nausea / Vomiting: adequately controlled Pain: adequately controlled Airway Patency, RR, SpO2: stable & adequate BP & HR: stable & adequate Hydration State: stable & adequate Anesthetic Complications: no major complications apparent and Pt Satisfied with anesthetic care
--- NOTE | 2022-05-26 12:48 | Hospitalist Progress Note ---
Date of Service May 26, 2022 Assessment & Plan (1) Acute right flank pain: Plan: Acute right flank pain/right rib cage pain/right seventh, eighth and ninth rib fractures- - Patient was seen 2 days ago in the emergency department and noted to have these rib fractures. - The patient's symptoms worsened when he was on his riding lawnmower, and reached over to move the limb and his belt squeezed on his rib cage and caused a significant return of symptoms - His imaging does show an 8 mm gallbladder stone, however, the gallbladder itself looks normal, and liver tests are normal. - The ED was somewhat concerned about the possibility of a gallbladder issue, however, there was no variation with diet in addition to the findings as noted in the line above - RUQ u/s abnormal, some concerns for cholecystitis, no staff available for HIDA scan. GS consulted (see below) on 05/25 with plans for lap zia (2) Cholelithiasis: Plan: s/p robotic lap cholecystectomy today 05/26 - Advance diet as tolerated - Cap fluids as he is tolerating PO - Ambulate as tolerated (3) Acute kidney injury: Plan: Creatinine 1.58 on admission, with range 0.95-1.19 - Held spironolactone, potassium chloride, losartan and furosemide - NSS at 80 mils per hour x1 L - Repeat labs noted return of renal function to baseline, this issue has resolved (4) Hypertension: Plan: Continue metoprolol tartrate and terazosin - Holding furosemide, losartan, potassium chloride and spironolactone as noted above - Despite holding these meds, BP is acceptably controlled (5) Abdominal aortic aneurysm (AAA) without rupture: Plan: Unchanged on imaging compared to previous, and without evidence of dissection (6) Right rib fracture: Plan: Add Lidoderm patch (7) Compression fracture of T8 vertebra: Plan: Compression Fxs T8 and T12 - Pain control - Therapy eval (8) Carcinoma of bladder: (9) Hyperlipidemia: Plan: Continue pravastatin 20 mg at bedtime Plan Doing well post op, anticipate he can probably go home tomorrow. Son at bedside. No questions at this time. Repeat labs ordered. Plan d/w Dr. Hannah. Admission and Anticipated Discharge Date Admission Date: May 24, 2022 Supervising Physician Co-Signing Physician Notes Attending Attestation - Chart reviewed, care plan d/w RANDAL Laureano. I agree w/ the echavarria components of her documentation. Tony Hannah MD Subjective Patient seen on daily rounds this morning. He is s/p robotic lap zia with Dr. Sood today. He tolerated procedure well, currently w/o pain or nausea. Tolerating clear liquids. No cp or dyspnea. Review of Systems Review of Systems: All systems reviewed and are unremarkable except as noted in HPI and below. Denies fever, chills, fatigue, headache, nasal congestion, sore throat, cough, chest pain, shortness of breath, palpitations, orthopnea, PND, abdominal pain, n/v/d, constipation, dysuria, hematuria, frequency, back pain, joint pain or swelling, easy bruising or bleeding, skin lesions or rashes. Physical Exam Physical Exam: GENERAL: 86 yo Well-developed, well-nourished elderly WM. NAD. LUNGS: Clear to auscultation bilaterally. No W/R/R. CARDIOVASCULAR: Regular rate and rhythm. No M/G/R. No JVD. ABDOMEN: Soft, minimally distended (as expected post op). BS normoactive x 4 quad. Mild incisional tenderness. EXTREMITIES: No edema. Non-tender. Peripheral pulses +2/4. NEUROLOGIC: A&O x3. PSYCHIATRIC: Cooperative. Appropriate mood and affect. SKIN: Warm, dry, intact. No rashes or lesions. Results & Data Results & Data ([facility]) Vital Signs (Past 12 Hours) Vital Signs Temp Pulse Pulse Resp BP Pulse Ox O2 Del Method 05/26/22 12:08 36.4 C L 59 L 16 115/68 95 Nasal Cannula 05/26/22 11:54 36.4 C L 56 L 18 139/70 95 Nasal Cannula 05/26/22 11:25 36.4 C L 61 12 130/66 94 Nasal Cannula 05/26/22 11:15 59 L 12 130/68 93 Nasal Cannula 05/26/22 11:05 63 23 132/88 94 Oxymask 05/26/22 10:55 68 20 146/77 H 94 Oxymask 05/26/22 10:45 67 15 145/75 H 95 Oxymask 05/26/22 10:37 36.0 C L 88 20 144/69 H 93 Oxymask 05/26/22 07:20 36.6 C 85 18 120/74 93 Room Air O2 Flow Rate 05/26/22 12:08 2 05/26/22 11:54 2 05/26/22 11:25 2 05/26/22 11:15 2 05/26/22 11:05 4 05/26/22 10:55 4 05/26/22 10:45 6 05/26/22 10:37 8 05/26/22 07:20 PG Care Time/CCT Total # of Minutes Spent Total Time Spent with Patient: Total time spent is greater than 50% in coordination of care (as documented) at patient's floor/unit and/or counseling patient: Coding Level of Care Code 31865 Subseq Hosp Care Lvl 2 Diagnoses Acute right flank pain R10.9 Cholelithiasis K80.20 Acute kidney injury N17.9 Hypertension I10 Abdominal aortic aneurysm (AAA) without rupture I71.4 Right rib fracture S22.41XD Encounter type: subsequent encounter Fracture healing: with routine healing Fracture type: closed Rib fracture type: multiple ribs Compression fracture of T8 vertebra S22.060A Encounter type: initial encounter Carcinoma of bladder C67.9 Hyperlipidemia E78.5 (1) Compression fracture of T8 vertebra Encounter type: initial encounter Qualified Code(s): S22.060A - Wedge compression fracture of T7-T8 vertebra, initial encounter for closed fracture (2) Right rib fracture Encounter type: subsequent encounter Fracture healing: with routine healing Fracture type: closed Rib fracture type: multiple ribs Qualified Code(s): S22.41XD - Multiple fractures of ribs, right side, subsequent encounter for fracture with routine healing
[2022-05-26] MEDS: TAMSULOSIN HCL 0.4 MG CAP PO SCH (20:14)
[2022-05-26] MEDS: TERAZOSIN HCL 1 MG CAP PO SCH (20:14)
[2022-05-26] MEDS: ACETAMINOPHEN 325 MG TAB PO PRN (23:51)
[2022-05-27 07:15] LABS: Basophils # (auto) 0.01 K/uL (0-0.2); Basophils % (auto) 0.1 %; Eosinophils # (auto) 0.04 K/uL (0-0.50); Eosinophils % (auto) 0.5 %; Hematocrit (blood only) 32.2 % (40.1-51.0); Hemoglobin 11.2 g/dl (14.0-18.0); Immature Granulocytes # (auto) 0.02 K/uL (0.00-0.02); Immature Granulocytes % (auto) 0.3 %; Lymphocytes # (auto) 1.33 K/uL (1.2-3.4); Lymphocytes % (auto) 17.1 %; Mean Corpuscular Hemoglobin 31.5 pg (25.0-34.0); Mean Corpuscular Hgb Conc 34.8 g/dL (32.0-36.0); Mean Corpuscular Volume 90.7 fL (80.0-100.0); Mean Platelet Volume 9.4 fL (9.4-12.4); Monocytes # (auto) 1.04 K/uL (0.24-0.82); Monocytes % (auto) 13.4 %; Neutrophils # (auto) 5.35 K/uL (1.4-6.5); Neutrophils % (auto) 68.6 %; Platelet Count 141 K/uL (130-400); RDW Standard Deviation 43.3 fL (36.4-46.3); Red Blood Count 3.55 M/uL (4.63-6.08); White Blood Count 7.79 K/ul (4.8-10.8)
[2022-05-27 07:40] LABS: BUN Creatinine Ratio 17.6 (10-20); Calcium 8.4 mg/dl (8.5-10.1); Creatinine Clr Calc Pharmacy 49.5 ml/min; Est GFR (African American) 77.3 ml/min; Est GFR (Non-African American) 66.7 ml/min; Potassium 4.6 mmol/L (3.5-5.1)
[2022-05-27] MEDS: oxyCODONE HCL IR 5 MG TAB (IMMEDIATE RELEASE) PO PRN ×3 (08:45→21:38)
[2022-05-27] MEDS: LOSARTAN POTASSIUM 25 MG TAB PO SCH (08:46)
[2022-05-27] MEDS: ASPIRIN 81 MG ECTAB PO SCH (08:46)
[2022-05-27] MEDS: CEROVITE ADV FORMULA TAB PO SCH (08:46)
[2022-05-27] MEDS: METOPROLOL TARTRATE 25 MG TAB PO SCH (08:46)
[2022-05-27] MEDS: SPIRONOLACTONE 25 MG TAB PO SCH (08:46)
[2022-05-27] MEDS: LIDOCAINE 5% 1 PATCH TD SCH ×2 (08:47→10:33)
--- NOTE | 2022-05-27 10:20 | Surgery Progress Note ---
Date of Service May 27, 2022 Assessment & Plan (1) Acute cholecystitis: Plan: POD # 1 s/p lap zia -avss - postop pain at incisions mild, abdomen soft - Right flank/Rib pain, spasms of severe pain - no n,v, tolerating diet Plan: His Right flank pain/rib pain/upper abdominal pain likely due to rib fractures Continue Lidoderm patch Abdominal binder for support Encouraged ambulation walker for ambulating hallway Continue medical management Continue low fat diet Dr. Reardon has seen patient and agrees with above. Admission and Anticipated Discharge Date Admission Date: May 24, 2022 Subjective abdominal pain at incision sites, still having the severe sharp spasms of pain in the right flank/back region that was happening before surgery no n,v tolerated breakfast urinating without difficulty Physical Exam Constitutional: WD/WN, vitals as above Respiratory: normal respiratory effort; no respiratory distress and no labored breathing Gastrointestinal (Abdomen): Inspection/Auscultation: abdomen normal to inspection and + abdominal surgical incision (covered with clean/dry/intact dressings); abdomen not distended Percussion/Palpation: + abdomen tender (mild at incision sites) and abdomen soft; no guarding, abdomen not rigid and abdomen not firm Musculoskeletal: Pain in the right flank and Right chest wall posterior pain with palpation Skin: no rashes, warm and dry no jaundice Psychiatric: A+Ox3, euthymic affect Results & Data ([facility]) Vital Signs (Past 12 Hours) Vital Signs Temp Pulse Resp BP Pulse Ox O2 Del Method 05/27/22 08:44 36.5 C 61 16 115/57 L 94 Room Air 05/27/22 06:20 36.4 C L 58 L 16 104/49 L 94 Room Air 05/27/22 04:12 36.5 C 60 15 99/46 L 94 Room Air 05/27/22 03:04 36.5 C 64 17 107/52 L 93 Room Air 05/26/22 23:15 36.5 C 60 16 108/48 L 94 Room Air Laboratory Results 05/27/22 05/27/22 Range/Units 06:59 06:59 WBC 7.79 (4.8-10.8) K/ul RBC 3.55 L (4.63-6.08) M/uL Hgb 11.2 L (14.0-18.0) g/dl Hct 32.2 L (40.1-51.0) % MCV 90.7 (80.0-100.0) fL MCH 31.5 (25.0-34.0) pg MCHC 34.8 (32.0-36.0) g/dL RDW Std Deviation 43.3 (36.4-46.3) fL RDW Coeff of [place] 13.0 (11.5-14.5) % Plt Count 141 (130-400) K/uL MPV 9.4 (9.4-12.4) fL Immature Gran % (Auto) 0.3 % Neut % (Auto) 68.6 % Lymph % (Auto) 17.1 % Posey % (Auto) 13.4 % Eos % (Auto) 0.5 % Baso % (Auto) 0.1 % Neut # (Auto) 5.35 (1.4-6.5) K/uL Lymph # (Auto) 1.33 (1.2-3.4) K/uL Posey # (Auto) 1.04 H (0.24-0.82) K/uL Eos # (Auto) 0.04 (0-0.50) K/uL Baso # (Auto) 0.01 (0-0.2) K/uL Immature Gran # (Auto) 0.02 (0.00-0.02) K/uL Sodium 130 L (136-145) mmol/L Potassium 4.6 (3.5-5.1) mmol/L Chloride 102 (98-107) mmol/L Carbon Dioxide 24 (21-32) mmol/L Anion Gap 4 (3-11) BUN 18 (6-23) mg/dl Creatinine 1.02 (0.6-1.4) mg/dl Est Cr Clr Drug Dosing 49.5 ml/min Est GFR ( Amer) 77.3 ml/min Est GFR (Non-Af Amer) 66.7 ml/min BUN/Creatinine Ratio 17.6 (10-20) Glucose 96 (70-99(Fasting)) mg/dl Calcium 8.4 L (8.5-10.1) mg/dl
[2022-05-27] MEDS ORDERED: CYCLOBENZAPRINE HCL 5 MG TAB PO PRN (14:26)
--- NOTE | 2022-05-27 14:27 | Hospitalist Progress Note ---
Date of Service May 27, 2022 Assessment & Plan (1) Acute right flank pain: Plan: Acute right flank pain/right rib cage pain/right seventh, eighth and ninth rib fractures- - Patient has had these fractures dating back to March 2022 from prior ER/pcp notes - The patient's symptoms worsened when he was on his riding lawnmower, and reached over to move the limb and his belt squeezed on his rib cage and caused a significant return of symptoms - Would continue with Lidoderm patches, APAP, and OxyIR - Could consider adding low dose Flexeril to help with spasms - PT/OT eval (2) Cholelithiasis: Plan: - found to have gallstones on CT a/p, RUQ u/s noted distended GB with gallstone in neck - s/p robotic lap cholecystectomy 05/[address] Sood - Advance diet as tolerated - Ambulate as tolerated (3) Acute kidney injury: Plan: Creatinine 1.58 on admission, with range 0.95-1.19 - Held spironolactone, potassium chloride, losartan and furosemide - NSS at 80 mils per hour x1 L - Repeat labs noted return of renal function to baseline, this issue has resolved (4) Hypertension: Plan: Continue metoprolol tartrate and terazosin - Holding furosemide, losartan, potassium chloride and spironolactone as noted above - Despite holding these meds, BP is acceptably controlled (5) Abdominal aortic aneurysm (AAA) without rupture: Plan: Unchanged on imaging compared to previous, and without evidence of dissection (6) Right rib fracture: Plan: Add Lidoderm patch (7) Compression fracture of T8 vertebra: Plan: Compression Fxs T8 and T12 - Pain control - Therapy eval (8) Carcinoma of bladder: Plan: - history of such - Follows routinely with urology (9) Hyperlipidemia: Plan: Continue pravastatin 20 mg at bedtime (10) Hyponatremia: Plan Therapy eval. Hold d/c for today, likely can go home tomorrow. Plan d/w Dr. Hannah. Admission and Anticipated Discharge Date Admission Date: May 24, 2022 Supervising Physician Co-Signing Physician Notes Attending Attestation - Chart reviewed, care plan d/w RANDAL Laureano. I agree w/ the echavarria components of her documentation. Na level today 130 -- has been ranging 130-135 during the stay. Recommend repeat BMP shortly after discharge for stability. 2nd to diuretics? other? Tony Hannah MD Subjective Patient seen on daily rounds today. He is having some right sided spasms with certain movements. This occurred prior to surgery and has known R rib fractures of 7, 8, and 9. From surgery, mild incisional soreness but otherwise tolerating diet and has no n/v. Review of Systems Review of Systems: All systems reviewed and are unremarkable except as noted in HPI and below. +muscle spasms right ribs w/ movement Denies fever, chills, fatigue, headache, nasal congestion, sore throat, cough, chest pain, shortness of breath, palpitations, orthopnea, PND, abdominal pain, n/v/d, constipation, dysuria, hematuria, frequency, back pain, joint pain or swelling, easy bruising or bleeding, skin lesions or rashes. Physical Exam Physical Exam: GENERAL: 86 yo wd/wn elderly WM. NAD. LUNGS: Clear to auscultation bilaterally. No W/R/R. CARDIOVASCULAR: Regular rate and rhythm. ABDOMEN: Soft, minimally distended (as expected post op). BS normoactive x 4 quad. Mild incisional tenderness. EXTREMITIES: No edema. Non-tender. Peripheral pulses +2/4. NEUROLOGIC: A&O x3. MSK: no pinpoint tenderness elicited to palpation of R rib along midline PSYCHIATRIC: Cooperative. Appropriate mood and affect. SKIN: Warm, dry, intact. No rashes or lesions. Results & Data Results & Data ([facility]) Vital Signs (Past 12 Hours) Vital Signs Temp Pulse Resp BP Pulse Ox O2 Del Method 05/27/22 08:45 Room Air 05/27/22 08:44 36.5 C 61 16 115/57 L 94 Room Air 05/27/22 06:20 36.4 C L 58 L 16 104/49 L 94 Room Air 05/27/22 04:12 36.5 C 60 15 99/46 L 94 Room Air 05/27/22 03:04 36.5 C 64 17 107/52 L 93 Room Air Laboratory Results 05/27/22 06:59 05/27/22 06:59 PG Care Time/CCT Total # of Minutes Spent Total Time Spent with Patient: Total time spent is greater than 50% in coordination of care (as documented) at patient's floor/unit and/or counseling patient: Coding Level of Care Code 32778 Subseq Hosp Care Lvl 2 Diagnoses Acute right flank pain R10.9 Cholelithiasis K80.20 Acute kidney injury N17.9 Hypertension I10 Abdominal aortic aneurysm (AAA) without rupture I71.4 Right rib fracture S22.41XD Encounter type: subsequent encounter Fracture healing: with routine healing Fracture type: closed Rib fracture type: multiple ribs Compression fracture of T8 vertebra S22.060A Encounter type: initial encounter Carcinoma of bladder C67.9 Hyperlipidemia E78.5 Hyponatremia E87.1 (1) Compression fracture of T8 vertebra Encounter type: initial encounter Qualified Code(s): S22.060A - Wedge compression fracture of T7-T8 vertebra, initial encounter for closed fracture (2) Right rib fracture Encounter type: subsequent encounter Fracture healing: with routine healing Fracture type: closed Rib fracture type: multiple ribs Qualified Code(s): S22.41XD - Multiple fractures of ribs, right side, subsequent encounter for fracture with routine healing
[2022-05-27] MEDS: TAMSULOSIN HCL 0.4 MG CAP PO SCH (21:22)
[2022-05-27] MEDS: TERAZOSIN HCL 1 MG CAP PO SCH (21:22)
[2022-05-28] MEDS: bisacodyL 10 MG SUPP PR SCH ×2 (01:33→08:29)
[2022-05-28] MEDS: oxyCODONE HCL IR 5 MG TAB (IMMEDIATE RELEASE) PO PRN ×3 (06:15→17:17)
[2022-05-28] MEDS: ASPIRIN 81 MG ECTAB PO SCH (08:23)
[2022-05-28] MEDS: SPIRONOLACTONE 25 MG TAB PO SCH (08:23)
[2022-05-28] MEDS: LOSARTAN POTASSIUM 25 MG TAB PO SCH (08:23)
[2022-05-28] MEDS: METOPROLOL TARTRATE 25 MG TAB PO SCH (08:23)
[2022-05-28] MEDS: CEROVITE ADV FORMULA TAB PO SCH (08:23)
[2022-05-28] MEDS: LIDOCAINE 5% 1 PATCH TD SCH (08:24)
[2022-05-28] MEDS ORDERED: POLYETHYLENE (MIRALAX) 17 GM PACK PO ONE (10:06)
[2022-05-28] MEDS ORDERED: POLYETHYLENE (MIRALAX) 17 GM PACK PO PRN (10:06)
--- NOTE | 2022-05-28 17:49 | Discharge Summary ---
Date of Service May 28, 2022 Admission HPI Per Admitting Provider This is a 86YO male seen with right flank pain. A CT scan of the abdomen pelvis was performed and noted a distended gallbladder with a stone and inflammatory changes. He has had pain but minimal nausea and no vomiting. US confirms likely acute cholecystitis. Principal Diagnosis rib fractures, biliary pain Discharge Exam vitals noted nad heent nc at mmm lungs cta b/l no rr//w good effort skin no rashes no pallor or icterus skin no rashes no pallor or icterus neuro no focal deficits Discharge Data Allergies Allergy/AdvReac Type Severity Reaction Status Date / Time No Known Allergies Allergy Verified 05/23/22 19:42 Consultations 05/23/22 23:27 ED Decision to Admit Stat 05/25/22 13:11 Consult General Surgery Routine Procedures Performed Operation Date: 05/26/22 09:00 Actual Procedures p Laparoscopic Cholecystectomy(Not Applicable) - Luis Sood MD Ordered Studies 05/23/22 18:24 CT angio abdomen wo/w con Stat 05/24/22 23:26 US gallbladder Urgent Hospital Course (1) Acute right flank pain: Acute right flank pain/right rib cage pain/right seventh, eighth and ninth rib fractures- - Patient has had these fractures dating back to March 2022 from prior ER/pcp notes - The patient's symptoms worsened when he was on his riding lawnmower, and reached over to move the limb and his belt squeezed on his rib cage and caused a significant return of symptoms - Safe/stable for home, Tylenol/ibuprofen/oxycodone for pain control, lidocaine patches ongoing as well. (2) Cholelithiasis: - found to have gallstones on CT a/p, RUQ u/s noted distended GB with gallstone in neck - s/p robotic lap cholecystectomy 05/[address] Sood - Safe for home in this respect as well (3) Acute kidney injury: Creatinine 1.58 on admission, with range 0.95-1.19 - Held spironolactone, potassium chloride, losartan and furosemide - NSS at 80 mils per hour x1 L - Repeat labs noted return of renal function to baseline, this issue has resolved, outpatient follow-up, serial basic metabolic panel as outpatient (4) Hypertension: Home on home meds, outpatient follow-up (5) Abdominal aortic aneurysm (AAA) without rupture: Unchanged on imaging compared to previous, and without evidence of dissection (6) Right rib fracture: as under #1 above (7) Compression fracture of T8 vertebra: Compression Fxs T8 and T12 - Pain control - outpatient bone health eval (8) Carcinoma of bladder: - history of such - Follows routinely with urology (9) Hyperlipidemia: Continue pravastatin 20 mg at bedtime Plan safe for home, outpt pain control, outpt bone health w/u Total Time Total Time Spent Total Time Spent (In Minutes): >30 Discharge Plan Discharge Items Patient Disposition: Home - Home Health Services Reason For Visit: RIB FRACTURES, ENTERITIS Discharge Diagnosis: rib fractures (healing), gallstones (gallbladder removed) Activity: Resume your previous activity Non-emergency contact: Primary Care Provider and Surgeon Call non-emergency contact if: you have any medication questions, your symptoms worsen and your pain is not controlled Follow-up/Referrals: Bassam Silva DO [Primary Care Provider] - 06/04/22 10:30 am Diet: Low Fat Addtl Attending Provider Instructions: rib fractures -as we discussed, it will probably take a good month for things to totally heal - during that time the pain will gradually get less and less, but i would expect it to be something that still needs a lot of attention/pain medication/etc with slow improvement in the coming weeks -as far as pain control: -take tylenol around the clock (tylenol arthritis - 650mg - three times a day) -- this will provide a good "foundation" and then when you need the stronger pain medications, often you'll get "2+2=5" kind of results with the addittive effects of the medicines (obviously over the terminal worker, high doses of tylenol can start to impact your liver, but when we're looking at the next few weeks, it's no big deal; if you were still needing the [id number] dosing by Cody I would want you talking with your PCP -as a second line, then you can use ibuprofen up to 400mg (2 over the counter tablets) up to every 6 hours for pain on top of the tylenol. over time it can start to lead to stomach ulcers, but that usually takes months - so again for the next few weeks it should not really cause noticable problems. if you were to start to notice nausea/indigestion, then we'd want you to talk with your PCP, but this is unlikely -as third line (or at bedtime) then you can use the oxycodone 5mg up to every 4 hours as needed. it can definitely lead to grogginess/confusion/constipation - so since it's the most problematic as far as acute side effects, use it last. however, i would expect you to need it reasonably often in the next week or two - and probably you'll be able to slowly use it less and less over the following weeks --->also keep a lidocaine patch on the area where the ribs were broken - it usually doesn't truly "numb" the area - but it often takes the edge off. the prescription patch is 5%, the over the counter is 4% --> typically the prescription is never covered, but if you shop around some, we're usually able to find the OTC for at the most a dollar a patch "post surgical discharge instructions" below as far as the recommendations from the surgeons; we would recommend that you do a low fat diet for a week or two - sometimes it takes our body a few weeks to "get used" to not having a gallbladder - so while it doesn't always happen, if someone has some degree of fat malabsorption, they can have a crampy, frothy diarrhea shortly after eating anything with fat in it. if this happens to you, reduce to really low fat for a few days before trying again. (again, this is not common -but if it does happen and you didn't know ahead of time, it can feel like more of mystery than it is) Addtl Director Counseling Bureau Provider Instructions: Post-Surgical ~Discharge Instructions Activity Recommendations: - lifting limitation: (20 pounds for 4 weeks), - exercise/sex/sports limit: (nonstrenuous for 4 weeks), - driving or machine use limit: (none for 1 week or until pain free), - Shower/bathe limit: (may shower beginning tomorrow) Diet: - Resume previous diet SPECIAL CARE INSTRUCTIONS: - May shower.. Let water run over area and pat dry. - Leave steri strips on for one week and then remove. - Call the surgeon's office with any questions or concerns - - (ex. temperature higher than 101 degrees F, excessive bleeding or pain). MEDICATIONS: - Resume previous medications unless instructed otherwise by your surgeon. - May take extra strength Tylenol as needed for mild to moderate pain -650 mg Tylenol every 6 hours as needed - Oxycodone as needed for moderate to severe pain FOLLOW UP VISIT: - If not already scheduled, please call the office to schedule a two week follow-up appointment. Office number Pending Studies at Discharge: Yes (gallbladder pathology, will be reviewed at postop visit) Stand-Alone Forms: My [facility] Universal Ad, Smoking Cessation Medications and DC Order Prescriptions: New oxycodone 5 mg tablet 5 mg PO Q4H PRN (Reason: pain) Qty: 25 0RF Rx Instructions: prn severe pain - caution drowsiness/constipation cholecalciferol (vitamin D3) [Vitamin D3] 50 mcg (2,000 unit) capsule 50 mcg PO DAILY 30 Days Qty: 30 0RF Continued tamsulosin 0.4 mg capsule 0.8 mg PO HS Qty: 60 11RF pravastatin 20 mg tablet 20 mg PO HS Qty: 30 11RF losartan 25 mg tablet 25 mg PO DAILY potassium chloride 20 mEq tablet extended release 20 meq PO .COMPLEX Rx Instructions: 20 mEq PO daily; TAKES 40 MEQ ON TUESDAYS & FRIDAYS. Bladder 2.2 200-5-250 mcg-mg-mcg tablet 1 tab PO DAILY furosemide 40 mg tablet 40 mg PO .COMPLEX Rx Instructions: 40 mg PO daily; TAKES 80 MG ON TUESDAYS & FRIDAYS. ubidecarenone-omega 3-vit E 50-300-30 mg-mg-unit capsule 1 cap PO DAILY metoprolol tartrate 25 mg tablet 25 mg PO DAILY spironolactone 25 mg tablet 25 mg PO DAILY aspirin 81 mg Tablet,Delayed Release (Dr/Ec) 81 mg PO DAILY terazosin 1 mg capsule 1 mg PO HS Discharge Orders: Discharge Order (Routine); Ordered 05/28/22 Ordered By: Gene Martin/Other Patient Handouts: Cholecystectomy, Rib Fracture (Broken Rib) Admission Data Admit Date/Time: 05/24/22 00:29 Attending Provider: Gene Sánchez Admit Provider: João Holman Primary Care Provider: Bassam Silva Other Providers: João Holman ; Luis Sood ; [facility] Other Interventions: Discharge Summary Assessment (RN) Last Done: 05/28/22 14:56 Coding Level of Care Code D/C DAY MANAGEMENT >30 MINS Diagnoses Acute right flank pain R10.9 Cholelithiasis K80.20 Acute kidney injury N17.9 Hypertension I10 Abdominal aortic aneurysm (AAA) without rupture I71.4 Right rib fracture S22.41XD Encounter type: subsequent encounter Fracture healing: with routine healing Fracture type: closed Rib fracture type: multiple ribs Compression fracture of T8 vertebra S22.060A Encounter type: initial encounter Carcinoma of bladder C67.9 Hyperlipidemia E78.5
--- NOTE | 2022-06-01 08:27 | Operative Report (OR) ---
ADDENDUM PROCEDURE PERFORMED: Laparoscopic cholecystectomy. Job ID: [id number]
== END 2022-05-28 19:06 | disposition home health service (06) | DRG 418 ==
LOC: ED 18:01 → 3W 05-24 00:29 → SUATTDRO 05-24 00:29 → 3W 05-24 01:40

== ENCOUNTER 2025-02-07 06:53 | Inpatient (IN) ==
--- NOTE | 2025-02-07 07:05 | Emergency Department Note ---
Impression & Plan Atrioventricular block, Mobitz type 2, Acute hypotension, Acute hyponatremia ED Provider Note NAME: MC RODRIGUZE AGE: 89 SEX: M : 1935 ARRIVES VIA: Ambulance INFORMANT: Patient ED PROVIDER(S): Gene Ni DO CHIEF COMPLAINT: lightheaded HPI: Patient is an 89-year-old male with a past medical history of mitral regurg, hypertension, hyperlipidemia who presents to the ER for feeling like he is going to pass out. He had this once last Friday where he got real hot and warm throughout his entire body and felt like he was going to pass out. Today he felt lightheaded all night since last night and is felt like he is going to pass out but has not passed out. Is worse with changing positions. He denies any headache or change or loss of vision. He admits to pain since the fall last Friday on his left side where he broke 1 rib. He notes when he breathes it still hurts there and he still feels like he cannot quite take a deep breath and consequently has some pink shortness of breath since this incident. No dysuria, urgency, or frequency. No other exacerbating or remitting factors. ADDITIONAL HISTORY OBTAINED: Per HPI Chronic Medical/Social Conditions Affecting Care: Per HPI PAST MEDICAL HISTORY:See Below PAST SURGICAL HISTORY:See Below FAMILY HISTORY:See Below SOCIAL HISTORY:See Below HOME MEDICATIONS:See Below ALLERGIES:See Below VITALS:See Below PHYSICAL EXAMINATION: GENERAL: Sitting up in bed, alert, well appearing, well nourished, no distress, non-toxic EYE EXAM: normal conjunctiva. OROPHARYNX: no exudate, no erythema, lips, buccal mucosa, and tongue normal and mucous membranes are moist NECK: supple, no nuchal rigidity, no adenopathy, non-tender LUNGS: Clear to auscultation. Normal chest wall mechanics HEART: no murmurs, S1 normal and S2 normal ABDOMEN: abdomen soft, non-tender, normo-active bowel sounds, no masses, no rebound or guarding. UPPER EXTREMITIES: upper extremities are grossly normal. LOWER EXTREMITIES: No pitting edema. NEURO EXAM: Normal sensorium, cranial nerves II-XII grossly intact, normal speech, no gross weakness of arms, no gross weakness of legs. MEDICAL DECISION MAKING: Patient is an 89-year-old male with a past medical history of hypertension and hyponatremia who presents to the ER for lightheadedness. IV was established blood work was obtained. Labs showed no significant leukocytosis. Mild anemia 12.6. BMP with hyponatremia at 134. LFTs bilirubin was unremarkable. Troponin was negative. TSH unremarkable. Patient's pressures were soft and EKG initially consistent with a Mobitz type II. Cardiology was consulted patient was taken to the [facility] for a temporary pacemaker by Dr. Garza. CT head and chest showed atelectasis. Patient was updated at bedside. Family was updated. He was given IV fluids. Consults/Care Managements Discussions: Per [facility] Triage Nursing notes reviewed. Limited review of prior medical records performed Vital Signs: reviewed and remarkable for no significant abnormalities Differential diagnosis: Differential diagnoses include major intracranial, cervical, spinal, thoracic, abdominal, pelvic and neurologic injury. Fracture, contusion, sprain, strain, laceration, abrasions included as well. ER treatment provided: See below Diagnostics interpreted by me include EKG and cardiac monitoring as listed below: -Cardiac Monitoring: An order was placed for continuous cardiac monitoring. The monitor shows a rate of 60 with sinus rhythm. -ECG: Sinus rhythm rate of 60 with a first-degree AV block Normal axis Right bundle branch block QTc 450 -Laboratory studies:Interpreted by me as stated above in MDM and shown below. Imaging studies: Xrays: As interpreted by me: Portable AP upright 1 view the chest shows lower lobe infiltrate CTs show: CT head and chest as described above Procedures:none Critical Care: I have personally spent 45 minutes of critical care time in the direct management of this patient. This includes bedside care, interpretation of diagnostic studies, and testing, discussion with consultants, patient, and family members, and other required patient management activities. This 45 minutes is in excess of all separately billable procedures. Past Med/Surg History Problem List (Updated 02/07/25 @ 13:00 by Gene Ni DO) Acute hyponatremia (Acute) Acute hypotension (Acute) Atrioventricular block, Mobitz type 2 (Acute) Complete heart block Left rib fracture (Acute) Hyponatremia Diastolic dysfunction, left ventricle gr 1 Mitral regurgitation mild Nephrolithiasis (Acute) Hypertension (Acute) Hyperlipidemia (Acute) Vitamin D deficiency Hiatal hernia Osteoporosis Low back pain Edema of both lower extremities Carcinoma of bladder Enlarged prostate without lower urinary tract symptoms (luts) (Acute) Hypokalemia (Acute) Medical History Abnormal findings on diagnostic imaging of gallbladder Diarrhea Acute right flank pain Olecranon bursitis, right elbow T12 compression fracture Abdominal aortic aneurysm (AAA) without rupture Acute cholecystitis 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 [facility] History of bladder surgery Hx of replacement of aortic valve and Ao root graft 2004 Family History Sister Cancer Grandmother Cancer Grandmother Diabetes Unknown Heart disease Father Myocardial infarction Other Family history non-contributory Denies family history of Ovarian cancer Prostate cancer Breast cancer Colorectal cancer Social History Smoking Status: Never smoker Second Hand Exposure: No; Do You Dip or Chew Tobacco: No; Hx Alcohol Use: No Hx Substance Use: No Preferred Language: Malagasy Communication Ability: Effective Visual Impairment: Limited Hearing Ability: Use of Hearing Aid Administrative Services Coordinator Required: No Beliefs That Will Affect Care: None marital status: Current Living Situation: Spouse Current Living Situation Comment: lives with in ranch house current occupational status: retired How many Children do You have: 2 Feels Safe at Home: Yes Childhood Exposure to Second-Hand Smoke: No Diet: regular caffeine: Yes during the past year weight has: remained stable Dental Care, Regularly: No Physical Activity Frequency: Daily Seatbelt Use: always Sunscreen Use: No Do you think of yourself as: straight/heterosexual Sexual Activity: has been sexually active, but not for at least 12 months Gender Identity: Male Assistive Devices: Glasses and Hearing Aid - Bilateral Allergies Allergies Allergy/AdvReac Type Severity Reaction Status Date / Time No Known Allergies Allergy Verified 02/07/25 09:50 Home Meds Home Medications Medication Instructions Recorded Confirmed aspirin 81 mg tablet,delayed 81 mg PO DAILY 05/03/18 02/07/25 release [id number] acid 200 1 tab PO DAILY 01/11/19 02/07/25 mcg-lycopene 5 mg-boron 250 mcg tablet (Bladder 2.2) losartan 25 mg tablet 25 mg PO QAM 07/12/20 02/07/25 furosemide 40 mg tablet 40 mg PO 5XWK 07/18/21 02/07/25 potassium chloride 20 mEq 20 meq PO 5XWK 07/18/21 02/07/25 tablet,extended release spironolactone 25 mg tablet 25 mg PO QAM 07/18/21 02/07/25 terazosin 1 mg capsule 1 mg PO HS 05/23/22 02/07/25 calcium carbonate 600 mg PO DAILY 01/28/25 02/07/25 cholecalciferol (vitamin D3) 50 50 mcg PO DAILY 01/28/25 02/07/25 mcg (2,000 unit) capsule colestipol 1 gram tablet 1 g PO BID 01/28/25 02/07/25 furosemide 40 mg tablet 80 mg PO 2XWK 02/07/25 02/07/25 metoprolol succinate 25 mg 25 mg PO DAILY 02/07/25 02/07/25 tablet,extended release 24 hr potassium chloride 20 mEq 40 meq PO 2XWK 02/07/25 02/07/25 tablet,extended release(part/cryst) Previous Rx's Medication Instructions Recorded tamsulosin 0.4 mg capsule 0.8 mg (2 x 0.4 mg) PO HS #60 caps 04/06/24 pravastatin 20 mg tablet 20 mg PO HS #30 tabs 09/23/24 Results & Data (ED) Vital Signs Vital Signs - 24 hr 02/07/25 06:53 02/07/25 06:59 02/07/25 07:06 Temperature 36.8 C Temperature Source Oral Pulse Rate 72 65 65 Pulse Rate [Apical] Pulse Rate from SpO2 Sensor Pulse Rhythm Regular Respiratory Rate 17 17 Respiratory Effort / Characteristics Non-Labored Respiratory Depth Normal Respiratory Pattern Regular Blood Pressure 107/59 L Blood Pressure [Right Arm] Blood Pressure Mean 75 Blood Pressure Mean [Right Arm] Pulse Oximetry 95 95 Oxygen Delivery Method Room Air Room Air Sepsis Recent Fever Within 48 Hours No Sepsis New/Unexplained Change in Mental Status N/A Sepsis Action Taken by Nursing No Action Required 02/07/25 07:30 02/07/25 08:00 02/07/25 08:30 Temperature Temperature Source Pulse Rate 61 59 L 59 L Pulse Rate [Apical] Pulse Rate from SpO2 Sensor 62 60 58 L Pulse Rhythm Respiratory Rate 15 17 17 Respiratory Effort / Characteristics Respiratory Depth Respiratory Pattern Blood Pressure 117/55 L 110/63 102/61 Blood Pressure [Right Arm] Blood Pressure Mean 79 95 73 Blood Pressure Mean [Right Arm] Pulse Oximetry 96 97 98 Oxygen Delivery Method Sepsis Recent Fever Within 48 Hours Sepsis New/Unexplained Change in Mental Status Sepsis Action Taken by Nursing 02/07/25 09:01 02/07/25 09:07 02/07/25 09:15 Temperature Temperature Source Pulse Rate 35 L 35 L 34 L Pulse Rate [Apical] Pulse Rate from SpO2 Sensor 35 L 34 L Pulse Rhythm Respiratory Rate 16 15 Respiratory Effort / Characteristics Respiratory Depth Respiratory Pattern Blood Pressure 92/42 L 97/46 L Blood Pressure [Right Arm] Blood Pressure Mean 63 63 Blood Pressure Mean [Right Arm] Pulse Oximetry 94 94 Oxygen Delivery Method Sepsis Recent Fever Within 48 Hours Sepsis New/Unexplained Change in Mental Status Sepsis Action Taken by Nursing 02/07/25 09:29 02/07/25 09:41 02/07/25 09:46 Temperature Temperature Source Pulse Rate 28 L 35 L Pulse Rate [Apical] 36 L Pulse Rate from SpO2 Sensor 35 L Pulse Rhythm Respiratory Rate 18 30 H Respiratory Effort / Characteristics Non-Labored Respiratory Depth Normal Respiratory Pattern Regular Blood Pressure 94/40 L Blood Pressure [Right Arm] 94/42 L Blood Pressure Mean 53 Blood Pressure Mean [Right Arm] 59 Pulse Oximetry 93 94 Oxygen Delivery Method Room Air Sepsis Recent Fever Within 48 Hours Sepsis New/Unexplained Change in Mental Status Sepsis Action Taken by Nursing 02/07/25 10:01 02/07/25 10:18 Temperature Temperature Source Pulse Rate 35 L 32 L Pulse Rate [Apical] Pulse Rate from SpO2 Sensor 35 L 34 L Pulse Rhythm Respiratory Rate 30 H 13 Respiratory Effort / Characteristics Respiratory Depth Respiratory Pattern Blood Pressure 96/42 L 106/47 L Blood Pressure [Right Arm] Blood Pressure Mean 63 66 Blood Pressure Mean [Right Arm] Pulse Oximetry 94 95 Oxygen Delivery Method Sepsis Recent Fever Within 48 Hours Sepsis New/Unexplained Change in Mental Status Sepsis Action Taken by Nursing Laboratory Data 02/07/25 07:15 02/07/25 07:15 Lab Results 02/07/25 02/07/25 Range/Units 07:15 10:05 WBC 6.94 (4.8-10.8) K/ul RBC 4.20 L (4.70-6.10) M/uL Hgb 12.6 L (14.0-18.0) g/dl Hct 36.7 L (42.0-52.0) % MCV 87.4 (80.0-100.0) fL MCH 30.0 (25.0-34.0) pg MCHC 34.3 (32.0-36.0) g/dL RDW Std Deviation 46.0 (36.4-46.3) fL RDW Coeff of [place] 14.5 (11.5-14.5) % Plt Count 177 (130-400) K/uL MPV 9.3 L (9.4-12.4) fL Immature Gran % (Auto) 0.4 % Neut % (Auto) 58.3 % Lymph % (Auto) 25.9 % Terry % (Auto) 11.7 % Eos % (Auto) 3.3 % Baso % (Auto) 0.4 % Neut # (Auto) 4.04 (1.40-6.50) K/uL Lymph # (Auto) 1.80 (1.20-3.40) K/uL Terry # (Auto) 0.81 H (0.11-0.59) K/uL Eos # (Auto) 0.23 (0.00-0.50) K/uL Baso # (Auto) 0.03 (0.00-0.20) K/uL Immature Gran # (Auto) 0.03 (0.01-0.20) K/uL Sodium 134 L (136-145) mmol/L Potassium 3.7 (3.5-5.1) mmol/L Chloride 102 (98-107) mmol/L Carbon Dioxide 25 (21-32) mmol/L Anion Gap 7 (3-11) BUN 28 H (6-23) mg/dl Creatinine 1.36 (0.6-1.4) mg/dl Est Cr Clr Drug Dosing Not Reportable eGFR 50.05 BUN/Creatinine Ratio 20.6 H (10-20) Glucose 100 H (70-99(Fasting)) mg/dl Calcium 9.0 (8.6-10.3) mg/dl Total Bilirubin 1.0 (0.2-1.0) mg/dl AST 18 (13-39) U/L ALT 14 (7-52) U/L Alkaline Phosphatase 61 (34-104) U/L Troponin I High Sens 11.0 (0-20) pg/ml Total Protein 6.1 (6.0-8.3) gm/dl Albumin 3.8 (3.4-5.0) gm/dl Globulin 2.3 L (2.5-4.0) gm/dl Albumin/Globulin Ratio 1.7 (0.9-2) Lipase 8 L (11-82) U/L TSH 2.276 (0.300-4.500) uIu/ml Anaplasma Smear See Comment Babesia Smear See Comment Lyme Disease Screen Negative (Negative) Administered Medications Discontinued Medications Fentanyl Citrate (Fentanyl Citrate Pf 100 Mcg/2 Ml Vial) Confirm Administered Dose 100 mcg .ROUTE .STK-MED ONE Stop: 02/07/25 11:24 Last Increment: 02/07/25 11:35 Dose: 25 mcg Documented By: SHERRIE Sodium Chloride (Nss) 1,000 mls @ 999 mls/hr IV .Q1H1M ONE Stop: 02/07/25 07:58 Last Infusion: 02/07/25 08:42 Dose: Infused Documented By: Admin: 02/07/25 07:17 Dose: 999 mls/hr Documented By: NELLA Ioversol (Optiray 320 100ml) 93 ml IV ONCE ONE Stop: 02/07/25 08:53 Last Admin: 02/07/25 08:52 Dose: 93 ml Documented By: COLE Midazolam HCl (Midazolam Hcl 1 Mg/Ml 2ml Vial) Confirm Administered Dose 2 mg .ROUTE .STK-MED ONE Stop: 02/07/25 11:23 Last Increment: 02/07/25 11:35 Dose: 1 mg Documented By: SHERRIE Imaging Data Radiologist's Impression: Chest X-Ray 02/07/25 06:59 EXAM: XR chest 1V portable CLINICAL HISTORY: Chest pain, nonspecific TECHNIQUE: An X-ray image of the chest is obtained in AP projection. COMPARISON: No prior studies are available for comparison. FINDINGS: Pulmonary Parenchyma: Well defined opacity noted involving right lower zone- possibility of basal consolidation likely over diaphragmatic hump Rest of both lungs are clear. Heart and Mediastinum: Heart size and shape are normal. No mediastinal widening or masses. No hilar or mediastinal lymphadenopathy. Bony Thorax: Bony thorax appears intact without fractures or deformities. Soft Tissues: Soft tissues overlying the chest wall are unremarkable. IMPRESSION: Well defined opacity noted involving right lower zone- possibility of basal consolidation likely over diaphragmatic hump- CT chest correlation suggested. Electronically signed by Marty Vu 02-07-2025 07:[address] 02/07/25 08:[address] CONTRAST CT DOSE: 1594 HISTORY: abn cxr per rads TECHNIQUE: Multiaxial CT images of the chest were performed following the IV administration of 90 cc of Optiray. A dose lowering technique was utilized adhering to the principles of ALARA. COMPARISON STUDY: Chest x-ray earlier today and CT of 05/21/2022 FINDINGS: There is a stable moderate to large hiatal hernia. There is stable mild elevation of the right hemidiaphragm. There is bandlike consolidation posteriorly in the lung bases which is mildly progressive compared to the prior CT, atelectasis versus early pneumonia. No other pulmonary consolidation or pleural effusion seen. No pneumothorax. Stable calcified granuloma left upper lobe. There are a few stable small pulmonary nodules, largest anterior lateral right upper lobe measures 5 mm series 7 image 100, stable. No interval significant pulmonary nodule. No enlarged adenopathy. No pericardial effusion. There are diffuse coronary artery and aortic calcifications. There are aortic valvular calcifications. There is a progressive chronic appearing vertebral body compression fracture T8 with severe height loss. There is a stable moderate vertebral body compression abnormality at T12. Stable old right rib fractures. No acute osseous finding seen. IMPRESSION: Atelectasis versus early pneumonia in the lung bases. Otherwise as described. ACT 112: Negative or not required by law. Electronically signed by: Rohit Warren M.D. 02/07/2025 9:[address] 02/07/25 08:29 CT head/brain wo con CLINICAL HISTORY: 89 years-old Male with lightheaded. Acute lightheadedness TECHNIQUE: Multiple axial CT images of the head were obtained without contrast. A dose lowering technique was utilized adhering to the principles of ALARA. CT DOSE: 1593.59 mGy.cm COMPARISON: None. FINDINGS: No acute intracranial hemorrhage, midline shift, intracranial mass, hydrocephalus, territorial ischemia or abnormal extra-axial collection. Involutional changes with white matter hypodensities suggestive of chronic microvascular ischemic disease. Left occipital lobe encephalomalacia The calvarium is intact. The paranasal sinuses, mastoid air cells, and middle ear cavities are clear. IMPRESSION: No acute intracranial abnormality. ACT 112: Negative or not required by law. The above report was generated using voice recognition software. It may contain grammatical, syntax or spelling errors. Electronically signed by: Aime Tirado M.D. 02/07/2025 9:06 AM Discharge Plan Visit Data Chief Complaint: Syncope (Near Syncope) Stated Complaint: Lightheaded, SOB ED Provider: Gene Ni Discharge Problem: Atrioventricular block, Mobitz type 2, Acute hypotension, Acute hyponatremia Patient Disposition: Admitted As Inpatient Condition: Critical Discharge Instructions Interventions: ED Discharge Assessment Last Done: 02/07/25 11:00
[2025-02-07] MEDS: SODIUM CHLORIDE 0.9% 1,000 ML IV ONE (07:17)
[2025-02-07 07:32] LABS: Hematocrit (blood only) 36.7 % (42.0-52.0); Hemoglobin 12.6 g/dl (14.0-18.0); Immature Granulocytes # (auto) 0.03 K/uL (0.01-0.20); Immature Granulocytes % (auto) 0.4 %; Mean Corpuscular Hemoglobin 30.0 pg (25.0-34.0); Mean Corpuscular Volume 87.4 fL (80.0-100.0); Platelet Count 177 K/uL (130-400); RDW Standard Deviation 46.0 fL (36.4-46.3); Red Blood Count 4.20 M/uL (4.70-6.10); White Blood Count 6.94 K/ul (4.8-10.8)
[2025-02-07 07:49] LABS: Alanine Aminotransferase 14 U/L (7-52); Albumin Globulin Ratio 1.7 (0.9-2); Alkaline Phosphatase 61 U/L (34-104); Anion Gap 7 (3-11); Bilirubin,Total 1.0 mg/dl (0.2-1.0); Blood Urea Nitrogen 28 mg/dl (6-23); Calcium 9.0 mg/dl (8.6-10.3); Carbon Dioxide 25 mmol/L (21-32); Chloride 102 mmol/L (98-107); Globulin 2.3 gm/dl (2.5-4.0); Glucose 100 mg/dl (70-99(Fasting)); Lipase 8 U/L (11-82); Potassium 3.7 mmol/L (3.5-5.1); Sodium 134 mmol/L (136-145); Total Protein 6.1 gm/dl (6.0-8.3)
--- NOTE | 2025-02-07 07:52 | XRay Report ---
EXAM: XR chest 1V portable CLINICAL HISTORY: Chest pain, nonspecific TECHNIQUE: An X-ray image of the chest is obtained in AP projection. COMPARISON: No prior studies are available for comparison. FINDINGS: Pulmonary Parenchyma: Well defined opacity noted involving right lower zone- possibility of basal consolidation likely over diaphragmatic hump Rest of both lungs are clear. Heart and Mediastinum: Heart size and shape are normal. No mediastinal widening or masses. No hilar or mediastinal lymphadenopathy. Bony Thorax: Bony thorax appears intact without fractures or deformities. Soft Tissues: Soft tissues overlying the chest wall are unremarkable. IMPRESSION: Well defined opacity noted involving right lower zone- possibility of basal consolidation likely over diaphragmatic hump- CT chest correlation suggested. Electronically signed by Marty Vu 02-07-2025 07:52 AM
[2025-02-07] MEDS: OPTIRAY 320 100ml IV ONE (08:52)
--- NOTE | 2025-02-07 09:07 | CT Scan Report ---
CHEST CT WITH CONTRAST CT DOSE: 1594 HISTORY: abn cxr per rads TECHNIQUE: Multiaxial CT images of the chest were performed following the IV administration of 90 cc of Optiray. A dose lowering technique was utilized adhering to the principles of ALARA. COMPARISON STUDY: Chest x-ray earlier today and CT of 05/21/2022 FINDINGS: There is a stable moderate to large hiatal hernia. There is stable mild elevation of the ri ght hemidiaphragm. There is bandlike consolidation posteriorly in the lung bases which is mildly prog ressive compared to the prior CT, atelectasis versus early pneumonia. No other pulmonary consolidatio n or pleural effusion seen. No pneumothorax. Stable calcified granuloma left upper lobe. There are a few stable small pulmonary nodules, largest anterior lateral right upper lobe measures 5 mm series 7 image 100, stable. No interval significant pulmonary nodule. No enlarged adenopathy. No pericardial e ffusion. There are diffuse coronary artery and aortic calcifications. There are aortic valvular calci fications. There is a progressive chronic appearing vertebral body compression fracture T8 with sever e height loss. There is a stable moderate vertebral body compression abnormality at T12. Stable old r ight rib fractures. No acute osseous finding seen. IMPRESSION: Atelectasis versus early pneumonia in the lung bases. Otherwise as described. ACT 112: Negative or not required by law. Electronically signed by: Rohit Warren M.D. 02/07/2025 9:05 AM
--- NOTE | 2025-02-07 09:08 | CT Scan Report ---
CT head/brain wo con CLINICAL HISTORY: 89 years-old Male with lightheaded. Acute lightheadedness TECHNIQUE: Multiple axial CT images of the head were obtained without contrast. A dose lowering tech nique was utilized adhering to the principles of ALARA. CT DOSE: 1593.59 mGy.cm COMPARISON: None. FINDINGS: No acute intracranial hemorrhage, midline shift, intracranial mass, hydrocephalus, territorial ischem ia or abnormal extra-axial collection. Involutional changes with white matter hypodensities suggestiv e of chronic microvascular ischemic disease. Left occipital lobe encephalomalacia The calvarium is intact. The paranasal sinuses, mastoid air cells, and middle ear cavities are clear . IMPRESSION: No acute intracranial abnormality. ACT 112: Negative or not required by law. The above report was generated using voice recognition software. It may contain grammatical, syntax o r spelling errors. Electronically signed by: Aime Tirado M.D. 02/07/2025 9:06 AM
--- NOTE | 2025-02-07 10:20 | Cardiology Consultation ---
Date of Consultation February 07, 2025 Assessment & Plan (1) Complete heart block: * Patient with intermittent third-degree heart block, ventricular escape rhythm in the 30s. Systolic blood pressure in the 90s earlier this morning, most recent systolic blood pressure during my assessment was 106 mmHg. Patient is comfortable lying supine. Patient has had waxing waning symptoms for several days with acute worsening overnight last night. The patient is felt to likely have a reversible conduction system disease with baseline first-degree AV block, right bundle branch block that is progressed. While I was examining the patient, he converted from third-degree AV block back to sinus bradycardia with long first-degree AV block with ventricular rate in the 40s. Recommend proceeding with temporary transvenous pacemaker for heart rate support pending assessment by electrophysiology for permanent pacemaker. Will plan on transferring patient from the emergency department to the [facility] and then to the first floor intensive care unit. Metoprolol as well as his other antihypertensives are going to be held for the time being. At bedside echocardiogram has been requested. I spent a total of 80 minutes on the date of service in preparation, delivery, and documentation of the care provided to this patient, excluding any time spent in the performance of separately billed services. History of Present Illness History of Present Illness Mr Maynard is an 89 year old male seen in cardiology consultation per the request of Dr Ni for the evaluation of symptomatic bradycardia. Patient Notes intermittent lightheadedness dating back 6 days with initial episode last Friday. He felt lightheaded all night and folic he was going to pass out but has not passed out. He had recently presented to the emergency department on 02/02/2025 describing a mechanical fall 3 days before with trauma and resultant chest pain. Chest x-ray on 02/02/2025 revealed an acute fracture of the left third rib with no pneumothorax or pleural effusion. CT of the chest performed today revealed a moderate to large hiatal hernia, chronic appearing vertebral body compression fracture of T8, vertebral body compression fracture T12 stable chronic rib fractures on the right side.Atherosclerosis was noted throughout the thoracic aorta without enlargement. At baseline the patient is known to have conduction system disease, EKG perform ed 05/23/2022 revealed sinus rhythm with first-degree AV block and right bundle branch block at that time. Initial EKG performed this morning at 7:01 AM revealed sinus rhythm at 60 bpm with long first-degree AV block, NC interval 294 ms, and right bundle branch block. Repeat tracing performed at 8:58 AM revealed third-degree AV block with wide QRS ventricular escape rhythm 30s. Ongoing third-degree heart block was recorded on repeat EKG at 9:02 AM and 9:33 am. Past Cardiac History: 1.Type I aortic dissection, May, for which patient underwent emergent repair of the aortic root with graft and aortic valve replacement utilizing a 25 mm freestyle root and stentless porcine valve. Postoperative course was complicated by transient renal insufficiency. 2. Hypertension 3. Dyslipidemia 4. 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 31 mm infrarenal abdominal aortic aneurism CTA 05/23/22 Allergies Allergy/AdvReac Type Severity Reaction Status Date / Time No Known Allergies Allergy Verified 02/07/25 09:50 Home Medications Medication Instructions Recorded Confirmed Type aspirin 81 mg tablet,delayed 81 mg PO DAILY 05/03/18 02/07/25 History release ygstndtf-ylph-ibowh acid 200 1 tab PO DAILY 01/11/19 02/07/25 History mcg-lycopene 5 mg-boron 250 mcg tablet (Bladder 2.2) losartan 25 mg tablet 25 mg PO QAM 07/12/20 02/07/25 History furosemide 40 mg tablet 40 mg PO 5XWK 07/18/21 02/07/25 History potassium chloride 20 mEq 20 meq PO 5XWK 07/18/21 02/07/25 History tablet,extended release spironolactone 25 mg tablet 25 mg PO QAM 07/18/21 02/07/25 History terazosin 1 mg capsule 1 mg PO HS 05/23/22 02/07/25 History tamsulosin 0.4 mg capsule 0.8 mg (2 x 0.4 mg) PO HS #60 caps 04/06/24 02/07/25 Rx pravastatin 20 mg tablet 20 mg PO HS #30 tabs 09/23/24 02/07/25 Rx calcium carbonate 600 mg PO DAILY 01/28/25 02/07/25 History cholecalciferol (vitamin D3) 50 50 mcg PO DAILY 01/28/25 02/07/25 History mcg (2,000 unit) capsule colestipol 1 gram tablet 1 g PO BID 01/28/25 02/07/25 History furosemide 40 mg tablet 80 mg PO 2XWK 02/07/25 02/07/25 History metoprolol succinate 25 mg 25 mg PO DAILY 02/07/25 02/07/25 History tablet,extended release 24 hr potassium chloride 20 mEq 40 meq PO 2XWK 02/07/25 02/07/25 History tablet,extended release(part/cryst) Patient History Medical History Abnormal findings on diagnostic imaging of gallbladder Diarrhea Acute right flank pain Olecranon bursitis, right elbow T12 compression fracture Abdominal aortic aneurysm (AAA) without rupture Acute cholecystitis 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 [facility] History of bladder surgery Hx of replacement of aortic valve and Ao root graft 2004 Family History Sister Cancer Grandmother Cancer Grandmother Diabetes Unknown Heart disease Father Myocardial infarction Other Family history non-contributory Denies family history of Ovarian cancer Prostate cancer Breast cancer Colorectal cancer Social History Smoking Status: Never smoker Second Hand Exposure: No; Do You Dip or Chew Tobacco: No; Hx Alcohol Use: No Hx Substance Use: No Preferred Language: Kenyan Communication Ability: Effective Visual Impairment: Limited Hearing Ability: Use of Hearing Aid Ward Maid Required: No Beliefs That Will Affect Care: None marital status: Current Living Situation: Spouse Current Living Situation Comment: lives with in ranch house current occupational status: retired How many Children do You have: 2 Feels Safe at Home: Yes Childhood Exposure to Second-Hand Smoke: No Diet: regular caffeine: Yes during the past year weight has: remained stable Dental Care, Regularly: No Physical Activity Frequency: Daily Seatbelt Use: always Sunscreen Use: No Do you think of yourself as: straight/heterosexual Sexual Activity: has been sexually active, but not for at least 12 months Gender Identity: Male Assistive Devices: Glasses and Hearing Aid - Bilateral Review of Systems Review of Systems: All systems reviewed & are unremarkable except as noted in HPI & below Results & Data Vital Signs (Past 12 Hours) Vital Signs Temp Pulse Pulse Resp BP BP Pulse Ox 02/07/25 09:41 36 L 18 94/42 L 93 02/07/25 09:29 28 L 02/07/25 09:15 34 L 15 97/46 L 94 02/07/25 09:07 35 L 02/07/25 09:01 35 L 16 92/42 L 94 02/07/25 08:30 59 L 17 102/61 98 02/07/25 08:00 59 L 17 110/63 97 02/07/25 07:30 61 15 117/55 L 96 02/07/25 07:06 65 02/07/25 06:59 65 17 95 02/07/25 06:53 36.8 C 72 17 107/59 L 95 O2 Del Method 02/07/25 09:41 Room Air 02/07/25 09:29 02/07/25 09:15 02/07/25 09:07 02/07/25 09:01 02/07/25 08:30 02/07/25 08:00 02/07/25 07:30 02/07/25 07:06 02/07/25 06:59 Room Air 02/07/25 06:53 Room Air Laboratory Results Cardiac Enzymes 02/07/25 Range/Units 07:15 AST 18 (13-39) U/L Troponin I High Sens 11.0 (0-20) pg/ml CBC 02/07/25 Range/Units 07:15 WBC 6.94 (4.8-10.8) K/ul RBC 4.20 L (4.70-6.10) M/uL Hgb 12.6 L (14.0-18.0) g/dl Hct 36.7 L (42.0-52.0) % Plt Count 177 (130-400) K/uL Neut # (Auto) 4.04 (1.40-6.50) K/uL Lymph # (Auto) 1.80 (1.20-3.40) K/uL [place] # (Auto) 0.81 H (0.11-0.59) K/uL Eos # (Auto) 0.23 (0.00-0.50) K/uL Baso # (Auto) 0.03 (0.00-0.20) K/uL Comprehensive Metabolic Panel 02/07/25 Range/Units 07:15 Sodium 134 L (136-145) mmol/L Potassium 3.7 (3.5-5.1) mmol/L Chloride 102 (98-107) mmol/L Carbon Dioxide 25 (21-32) mmol/L BUN 28 H (6-23) mg/dl Creatinine 1.36 (0.6-1.4) mg/dl Glucose 100 H (70-99(Fasting)) mg/dl Calcium 9.0 (8.6-10.3) mg/dl AST 18 (13-39) U/L ALT 14 (7-52) U/L Alkaline Phosphatase 61 (34-104) U/L Total Protein 6.1 (6.0-8.3) gm/dl Albumin 3.8 (3.4-5.0) gm/dl Intake and Output 02/06/25 02/07/25 02/07/25 22:59 06:59 14:59 Intake Total 1000 / 1000 Balance 1000 / 1000 Intake: IV 1000 / 1000 Sodium Chloride 0.9% 1,000 ml @ 1000 / 1000 999 mls/hr IV .Q1H1M ONE Rx#: [id number] Other: Weight 79.2 kg Weight Measurement Method [facility] Diagnostic Findings Most recent echocardiogram was on 10/14/2022: LVEF 55 to 59% Mild concentric left ventricular hypertrophy Normal LV wall motion Grade 1 diastolic dysfunction Aortic valve bioprosthesis visualized with no significant prosthetic regurgitation Prosthetic stenosis absent Evidence of prior aortic root/ascending aorta repair which were normal in size. Coding Level of Care Code 18295 IN/OBS CONSULT LVL 5,80M History Comprehensive Exam Comprehensive Medical Decision Making High Complexity Diagnoses Complete heart block I44.2
[2025-02-07 11:08] LABS: Thyroid Stimulating Hormone 2.276 uIu/ml (0.300-4.500)
--- NOTE | 2025-02-07 11:22 | Pre Anesthesia Assessment ---
Date of Service February 07, 2025 Pre Sedation Assessment Vital Signs Temp Pulse Pulse Resp BP BP Pulse Ox 02/07/25 11:00 55 L 21 106/62 97 02/07/25 10:42 55 L 21 106/62 97 02/07/25 10:30 33 L 14 106/47 L 95 02/07/25 10:18 32 L 13 106/47 L 95 02/07/25 10:01 35 L 30 H 96/42 L 94 02/07/25 09:46 35 L 30 H 94/40 L 94 02/07/25 09:41 36 L 18 94/42 L 93 02/07/25 09:29 28 L 02/07/25 09:15 34 L 15 97/46 L 94 02/07/25 09:07 35 L 02/07/25 09:01 35 L 16 92/42 L 94 02/07/25 08:30 59 L 17 102/61 98 02/07/25 08:00 59 L 17 110/63 97 02/07/25 07:30 61 15 117/55 L 96 02/07/25 07:06 65 02/07/25 06:59 65 17 95 02/07/25 06:53 98.2 F 72 17 107/59 L 95 O2 Del Method O2 Flow Rate 02/07/25 11:00 Nasal Cannula 2 02/07/25 10:42 02/07/25 10:30 02/07/25 10:18 02/07/25 10:01 02/07/25 09:46 02/07/25 09:41 Room Air 02/07/25 09:29 02/07/25 09:15 02/07/25 09:07 02/07/25 09:01 02/07/25 08:30 02/07/25 08:00 02/07/25 07:30 02/07/25 07:06 02/07/25 06:59 Room Air 02/07/25 06:53 Room Air Cardiovascular + regular rate Respiratory + respiratory effort normal Pre-Sedation Airway Assessment Smoking Status: Never smoker Hx Sleep Apnea: No Hx Difficult Intubation: No Short, Thick Neck: No Thyromental Distance: > or= 3.5 Finger Breadths Oral Cavity: + Dental Abnormalities Mallampati Class: II ASA: ASA4 Procedure Planning Contraindications for Sedation: none Current Medications Reviewed: Yes Notes The planned sedation has been discussed with the patient. Informed Consent was obtained. I have identified the patient, determined the appropriateness of sedation and have assessed the patient immediately prior to the procedure. All medicine(s) and interventions are by my order.
--- NOTE | 2025-02-07 11:30 | History & Physical Report ---
Date of Service February 07, 2025 Assessment & Plan (1) Dizziness: (2) Complete heart block: Plan Luis is an 89 year-old male with PMH of aortic dissection (repaired in 2004), HTN, hyperlipidemia, and mitral regurgitation, presenting for new onset three episodes of dizziness with no other neurological symptoms and source of trigger who was shown to have second degree AV block transitioning to third degree block and reverting back to sinus rhythm while in the ED. Although his only symptom is dizziness and he is currently not in acute distress, his vitals and EKG findings are concerning and warrant prompt evaluation by cardiology. Plan #Dizziness l Third Degree AV Block Assessment: These past three dizziness episodes are likely due to new onset second/third degree heart block that he will go into and then revert back to sinus bradycardia. He remains stable physically, but there is concern for rapid deterioration given unstable vital signs and prompt cardiology evaluation is warranted. 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 - Head CT: No acute intracranial abnormality. - Chest CT: Atelectasis versus early pneumonia in the lung bases. Otherwise as described. - CXR: Well defined opacity noted involving right lower zone- possibility of basal consolidation likely over diaphragmatic hump- CT chest correlation suggested. - ECHO ordered per cards: mild thickening of prosthetic valves, EF = 55-60% #Mitral regurgitation Assessment: Hx of chronic mitral regurg, followed by cards, currently asymptomatic for it and not medically managed. Plan: - ECHO ordered per cards: mild thickening of prosthetic valves, EF = 55-60% - Continue to clinically monitor, currently asymptomatic #Hypertension Assessment: Chronic hx of HTN, currently hypotensive attributed to new onset second/third degree AV block and decreased fluid intake. Followed by outpatient cards. Plan: - Holding BP meds and tamsulosin given bradycardia and hypotension #Hyperlipidemia Assessment: Chronic hx of hyperlipidemia, no known hx of CAD or carotid stenosis. Plan: - Resume home med Code Status: DNR/DNI DVT Prophylaxis: holding pharmaceutical prophylaxis in the setting of cards procedure today and tomorrow Diet: Heart healthy Dipso: ICU Admission and Anticipated Discharge Date Admission Date: 02/07/2025 History of Present Illness Chief Complaint: Dizziness Primary Care Provider: Bassam Silva DO Luis is an 89 year-old male with PMH of of mitral regurg, hypertension, and hyperlipidemia presenting for dizziness. He first felt it 10 days ago, fell, and fractured his rib. He was evaluated in the ED and was deemed stable for d/c. He said at the onset of his symptoms, he had a wave of heat fink down his body that resolved within a couple of minutes on his own. He did not pass out on Friday and was sitting comfortably in bed when the symptoms came on. He started to have a similar feeling overnight, which prompted the visit to the ED today. Denies fever, chills, nausea, vomiting, numbness, tingling, syncope, chest pain, headaches, and SOB. No hx of bleeding disorders. Denies hx of irregular heart rhythms and has not taken his medications today. Denies taking any medications, supplements, drug use, alcohol use, or smoking. No other cardiac/pulm hx. Has stated that his PO intake has been low, drinks 2 glasses of water a day. Allergies Allergy/AdvReac Type Severity Reaction Status Date / Time No Known Allergies Allergy Verified 02/07/25 09:50 Home Medications Medication Instructions Recorded Confirmed Type aspirin 81 mg tablet,delayed 81 mg PO DAILY 05/03/18 02/07/25 History release zaxdfqwx-ijcn-kemfu acid 200 1 tab PO DAILY 01/11/19 02/07/25 History mcg-lycopene 5 mg-boron 250 mcg tablet (Bladder 2.2) losartan 25 mg tablet 25 mg PO QAM 07/12/20 02/07/25 History furosemide 40 mg tablet 40 mg PO 5XWK 07/18/21 02/07/25 History potassium chloride 20 mEq 20 meq PO 5XWK 07/18/21 02/07/25 History tablet,extended release spironolactone 25 mg tablet 25 mg PO QAM 07/18/21 02/07/25 History terazosin 1 mg capsule 1 mg PO HS 05/23/22 02/07/25 History tamsulosin 0.4 mg capsule 0.8 mg (2 x 0.4 mg) PO HS #60 caps 04/06/24 02/07/25 Rx pravastatin 20 mg tablet 20 mg PO HS #30 tabs 09/23/24 02/07/25 Rx calcium carbonate 600 mg PO DAILY 01/28/25 02/07/25 History cholecalciferol (vitamin D3) 50 50 mcg PO DAILY 01/28/25 02/07/25 History mcg (2,000 unit) capsule colestipol 1 gram tablet 1 g PO BID 01/28/25 02/07/25 History furosemide 40 mg tablet 80 mg PO 2XWK 02/07/25 02/07/25 History metoprolol succinate 25 mg 25 mg PO DAILY 02/07/25 02/07/25 History tablet,extended release 24 hr potassium chloride 20 mEq 40 meq PO 2XWK 02/07/25 02/07/25 History tablet,extended release(part/cryst) Past Med/Surg History Problem List (Updated 02/07/25 @ 16:00 by Carolina Cheney) Dizziness (Acute) Acute hyponatremia (Acute) Acute hypotension (Acute) Atrioventricular block, Mobitz type 2 (Acute) Complete heart block Left rib fracture (Acute) Hyponatremia Diastolic dysfunction, left ventricle gr 1 Mitral regurgitation mild Nephrolithiasis (Acute) Hypertension (Acute) Hyperlipidemia (Acute) Vitamin D deficiency Hiatal hernia Osteoporosis Low back pain Edema of both lower extremities Carcinoma of bladder Enlarged prostate without lower urinary tract symptoms (luts) (Acute) Hypokalemia (Acute) Medical History Abnormal findings on diagnostic imaging of gallbladder Diarrhea Acute right flank pain Olecranon bursitis, right elbow T12 compression fracture Abdominal aortic aneurysm (AAA) without rupture Acute cholecystitis 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 [facility] History of bladder surgery Hx of replacement of aortic valve and Ao root graft 2004 Family History Sister Cancer Grandmother Cancer Grandmother Diabetes Unknown Heart disease Father Myocardial infarction Other Family history non-contributory Denies family history of Ovarian cancer Prostate cancer Breast cancer Colorectal cancer Social History Smoking Status: Never smoker Second Hand Exposure: No; Do You Dip or Chew Tobacco: No; Hx Alcohol Use: No Hx Substance Use: No Preferred Language: Liberian Communication Ability: Effective Visual Impairment: Limited Hearing Ability: Use of Hearing Aid Cupola Charger Insulation Required: No Beliefs That Will Affect Care: None marital status: Current Living Situation: Spouse Current Living Situation Comment: lives with in ranch house current occupational status: retired How many Children do You have: 2 Feels Safe at Home: Yes Childhood Exposure to Second-Hand Smoke: No Diet: regular caffeine: Yes during the past year weight has: remained stable Dental Care, Regularly: No Physical Activity Frequency: Daily Seatbelt Use: always Sunscreen Use: No Do you think of yourself as: straight/heterosexual Sexual Activity: has been sexually active, but not for at least 12 months Gender Identity: Male Assistive Devices: Glasses and Hearing Aid - Bilateral Review of Systems Review of Systems: As noted in HPI. Physical Exam Physical Exam: General: Does not appear in acute distress. Laying comfortably in bed. HEENT: Head is atraumatic and normocephalic. No signs of JVD. PERRLA. CV: S1 and S2 sounds present. No murmurs, rubs, or gallops. Irregular rate and rhythm. Resp: CTA B/L. No rales, wheezing, or rhocnhi. GI: Normoactive bowel sounds. No tenderness to palpation. MSK: No peripheral edema. No abnormal lesions visualized. Psych: Appropriate mood and affect. Results & Data Results & Data Vital Signs (Past 12 Hours) Vital Signs Temp Pulse Pulse Resp BP BP Pulse Ox 02/07/25 09:41 36 L 18 94/42 L 93 02/07/25 09:29 28 L 02/07/25 09:15 34 L 15 97/46 L 94 02/07/25 09:07 35 L 02/07/25 09:01 35 L 16 92/42 L 94 02/07/25 08:30 59 L 17 102/61 98 02/07/25 08:00 59 L 17 110/63 97 02/07/25 07:30 61 15 117/55 L 96 02/07/25 07:06 65 02/07/25 06:59 65 17 95 02/07/25 06:53 36.8 C 72 17 107/59 L 95 O2 Del Method 02/07/25 09:41 Room Air 02/07/25 09:29 02/07/25 09:15 02/07/25 09:07 02/07/25 09:01 02/07/25 08:30 02/07/25 08:00 02/07/25 07:30 02/07/25 07:06 02/07/25 06:59 Room Air 02/07/25 06:53 Room Air Supervising Physician Co-Signing Physician Notes I personally examined the patient and verified all echavarria points of history and exam, discussed case, and agree with decision making with Dr Ibanez and Billy Cheney MS4 feeling ok post transvenous pacer d/w cardiology assistance greatly appreciated vitals noted nad heent nc at mmm breathing unlabored no accessory muscles good effort skin no rashes no pallor or icterus neuro no focal deficits complete heart block - post transvenous pacer; for PPM placement once feasible otherwise as above
[2025-02-07] MEDS: MIDAZOLAM HCL 1 MG/ML 2ML VIAL ONE (11:35)
--- NOTE | 2025-02-07 11:48 | Post Anesthesia Assessment ---
Date of Service February 07, 2025 Post Sedation Assessment Vital Signs Temp Pulse Pulse Resp BP BP Pulse Ox 02/07/25 11:00 55 L 21 106/62 97 02/07/25 10:42 55 L 21 106/62 97 02/07/25 10:30 33 L 14 106/47 L 95 02/07/25 10:18 32 L 13 106/47 L 95 02/07/25 10:01 35 L 30 H 96/42 L 94 02/07/25 09:46 35 L 30 H 94/40 L 94 02/07/25 09:41 36 L 18 94/42 L 93 02/07/25 09:29 28 L 02/07/25 09:15 34 L 15 97/46 L 94 02/07/25 09:07 35 L 02/07/25 09:01 35 L 16 92/42 L 94 02/07/25 08:30 59 L 17 102/61 98 02/07/25 08:00 59 L 17 110/63 97 02/07/25 07:30 61 15 117/55 L 96 02/07/25 07:06 65 02/07/25 06:59 65 17 95 02/07/25 06:53 98.2 F 72 17 107/59 L 95 O2 Del Method O2 Flow Rate 02/07/25 11:00 Nasal Cannula 2 02/07/25 10:42 02/07/25 10:30 02/07/25 10:18 02/07/25 10:01 02/07/25 09:46 02/07/25 09:41 Room Air 02/07/25 09:29 02/07/25 09:15 02/07/25 09:07 02/07/25 09:01 02/07/25 08:30 02/07/25 08:00 02/07/25 07:30 02/07/25 07:06 02/07/25 06:59 Room Air 02/07/25 06:53 Room Air Recovery Score Activity: Moves 4 extremities Respiration: Deep Breath/Cough Circulation: +/-20% PreAnes Value Consciousness: Fully Awake Oxygen Saturation: O2 needed for >90% Discharge Sedation Level of Care: Fast Track Phase II
--- NOTE | 2025-02-07 11:54 | Cardiac Catheterization ---
[facility] Data: Account Support Manager Cardiac Status Clinical evaluation leading to the procedure CAD Presenation: Sx unlikely to be ischemic Diagnostic Physicians Name: Braydon Garza MD Closure Device Recommendations: Management Recommendatons (Permanent pacemaker) Cardiac Cath Procedure Full Procedure Date February 07, 2025 Pre-Procedure Diagnosis Pre-Procedure Diagnosis: Arrhythmia (Complete heart block) AUC Score AUC Score: 7 Post-Procedure Diagnosis Post-Procedure Diagnosis: Cardiothoracic Finding (AV block, RBBB) Procedure(s) Performed Procedure(s) Performed: Temporary Pacemaker and Ultrasound Guided Vascular Access [employer] Min[employer] Blasting Braydon Garza MD Hose Mender(s) Rigoberto Estimated Blood Loss Estimated Blood Loss: 5 Medication(s) Medication(s): Fentanyl, Lidocaine 1% and Versed Summary of Findings Temporary transvenous pacemaker placement Indication: Transient complete heart block, chronic first-degree AV block, right bundle branch block Procedure: Moderate sedation with fentanyl, Versed Local anesthesia with 1% lidocaine Right IJ access with micropuncture under ultrasound guidance 7 Fr sheath placed to right IJ Temporary transvenous pacing wire navigated into RV Appropriate pacing confirmed to outputs less than 0.5 mA Final pacemaker settings: VVI 60 bpm, output 5 mA Summary: 1. Successful placement of temporary transvenous pacemaker Recommendations: Further evaluation of reversible causes per Dr. Casanova EP evaluation for permanent pacemaker. Hemodynamics Rest Ao:: -- Final Ao: -- LV: -- Recommendations Recommendations: Management Recommendatons (Permanent pacemaker) Radiation Exposure (mGy) 22 Contrast (mls) 0 Anesthesia Moderate [id number] Procedural Complication(s) None Disposition ICU I attest to the content of the Intraoperative Record and any orders documented therein. Any exceptions are noted below. [facility] Card Cath Procedure Codes Therapeutic Services & Ancillary Procedure 1: Cardiovascular Tx and Anc Procedures: 72624 Ultrasonic Guidance Vascular Access Procedure 2: Cardiovascular Tx and Anc Procedures: 28929 Temp Pacer Insert Moderate Sedation Procedure 1: Sedation/Anesthesia: 78600 Mod Sedation by the same physician;Init15 Min Child Age 5 & Up PG Care Time/CCT Total # of Minutes Spent Total Time Spent with Patient: Total time spent is greater than 50% in coordination of care (as documented) at patient's floor/unit and/or counseling patient:
--- NOTE | 2025-02-07 12:12 | Electrocardiogram Report ---
Test Reason : Blood Pressure : */* mmHG Vent. Rate : 60 BPM Atrial Rate : 60 BPM P-R Int : 294 ms QRS Dur : 138 ms QT Int : 450 ms P-R-T Axes : -7 8 20 degrees QTcB Int : 450 ms Sinus rhythm with 1st degree A-V block Right bundle branch block Abnormal ECG When compared with ECG of 23-May-2022 18:39, No significant change was found Confirmed by Deepak Weber ([id number]) on 02/07/2025 12:11:35 PM Referred By: REFERRED SELF Confirmed By: Deepak Weber
--- NOTE | 2025-02-07 15:31 | Billing Data ---
Date of Service February 07, 2025 Coding Level of Care Code 46327 INT INP/OBS CARE
--- NOTE | 2025-02-07 16:36 | Critical Care Consultation ---
Date of Consultation February 07, 2025 Assessment & Plan (1) Acute hypotension: (2) Atrioventricular block, Mobitz type 2: (3) Complete heart block: (4) Hyponatremia: Plan Parish Maynard is an 89-year-old male with past medical history of mitral regurgitation, hypertension, hyperlipidemia, diastolic heart failure, BPH, AAA, nephrolithiasis, and osteoporosis; who presented to [facility] on 02/07/2025 with dizziness. Patient found to be in complete heart block. Patient taken to garage laborer for temporary transvenous pacemaker. Neuro: -No acute issues -Monitor neuro exam CV: Complete heart block -HR on admission 24-35 bpm. -Viral and tickborne etiology pending -TTVP placed with full capture at 60bpm and 5mA -Plan for permanent pacemaker placement in am -TTE pending -Hold antihypertensive and AV jordan blocking agents. -TSH 2.276 Pulm -No acute issues -Maintain SpO2 > 92% -Patient was on 2L NC and weaned to room air. GI: FEN -MIVF -Diet ordered. Patient need to be NPO at midnight for PPM placement in am. : -Creatinine 1.36 on admission -BUN 28 -Monitor renal function in am. -Monitor and replace electrolytes appropriate. Heme: Anemia related to chronic disease -Hgb 12.6 -Hct 36.7 -MCV 87.4 -Monitor and transfuse for Hgb < 7 or other signs of acute hemorrhage Endo: Stress Hyperglycemia -BG range 114-142 -Maintain BG 140-180 -Hyperglycemia protocol ID: -No acute issue -WBC 6.94 -Afebrile -Monitor and culture as appropriate. Prophylaxis: -SCD for mechanical DVT prophylaxis -Hold DVT chemoprophylaxis in setting for plan ed PPM in am. -GI prophlyaxis with Disposition: ICU for complete heart block s/p transvenous pacemaker with high risk for decline. Patient is DNR/DNI. Patient and family updated at bedside by ICU provider on 02/07/2025. Critical Care Time: I have personally spent 38 minutes of critical care time in the direct management of this patient. This is a life/limb threatening event. This includes time spent evaluating patient, direct bedside care, chart review, placing orders, interpretation of diagnostic studies, discussion with consultants, patient, and family members, as well as other required patient management activities. This time is exclusive of all separately billable procedures, and teaching time and separate from and in addition to any other critical care service time. History of Present Illness Reason for Consultation: Complete Heart Block s/p Temporary transvenous pacemaker. Attending Physician: Gene Sánchez DO History of Present Illness Parish Maynard is an 89-year-old male with past medical history of mitral regurgitation, hypertension, hyperlipidemia, diastolic heart failure, BPH, AAA, nephrolithiasis, and osteoporosis; who presented to [facility] on 02/07/2025 with dizziness. Patient states that approximately 10 days ago her felt dizzy causing him to fall and a left rib fracture. On 02/06/2025 the patient experienced warm fink though out his body without associated dizziness. The patient states that in the morning he had the hot fink, felt dizzy, and had chest pain. Patient came into the ED where EKG showed completed heart block. Patient was taken to the garage laborer for temporary transvenous pacemaker. Patient was set to 60bpm at 5mA with full capture. He was brought to the ICU for further evolutional and management of complete heart block with high risk for decline. Allergies Allergy/AdvReac Type Severity Reaction Status Date / Time No Known Allergies Allergy Verified 02/07/25 09:50 Home Medications Medication Instructions Recorded Confirmed Type aspirin 81 mg tablet,delayed 81 mg PO DAILY 05/03/18 02/07/25 History release tlmgvcty-ulnw-ezken acid 200 1 tab PO DAILY 01/11/19 02/07/25 History mcg-lycopene 5 mg-boron 250 mcg tablet (Bladder 2.2) losartan 25 mg tablet 25 mg PO QAM 07/12/20 02/07/25 History furosemide 40 mg tablet 40 mg PO 5XWK 07/18/21 02/07/25 History potassium chloride 20 mEq 20 meq PO 5XWK 07/18/21 02/07/25 History tablet,extended release spironolactone 25 mg tablet 25 mg PO QAM 07/18/21 02/07/25 History terazosin 1 mg capsule 1 mg PO HS 05/23/22 02/07/25 History tamsulosin 0.4 mg capsule 0.8 mg (2 x 0.4 mg) PO HS #60 caps 04/06/24 02/07/25 Rx pravastatin 20 mg tablet 20 mg PO HS #30 tabs 09/23/24 02/07/25 Rx calcium carbonate 600 mg PO DAILY 01/28/25 02/07/25 History cholecalciferol (vitamin D3) 50 50 mcg PO DAILY 01/28/25 02/07/25 History mcg (2,000 unit) capsule colestipol 1 gram tablet 1 g PO BID 01/28/25 02/07/25 History furosemide 40 mg tablet 80 mg PO 2XWK 02/07/25 02/07/25 History metoprolol succinate 25 mg 25 mg PO DAILY 02/07/25 02/07/25 History tablet,extended release 24 hr potassium chloride 20 mEq 40 meq PO 2XWK 02/07/25 02/07/25 History tablet,extended release(part/cryst) Patient History Medical History Abnormal findings on diagnostic imaging of gallbladder Diarrhea Acute right flank pain Olecranon bursitis, right elbow T12 compression fracture Abdominal aortic aneurysm (AAA) without rupture Acute cholecystitis 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 [facility] History of bladder surgery Hx of replacement of aortic valve and Ao root graft 2004 Family History Sister Cancer Grandmother Cancer Grandmother Diabetes Unknown Heart disease Father Myocardial infarction Other Family history non-contributory Denies family history of Ovarian cancer Prostate cancer Breast cancer Colorectal cancer Social History Smoking Status: Never smoker Second Hand Exposure: No; Do You Dip or Chew Tobacco: No; Hx Alcohol Use: No Hx Substance Use: No Preferred Language: Yakut Communication Ability: Effective Visual Impairment: Limited Hearing Ability: Use of Hearing Aid Supervisor Offset Plate Preparation Required: No Beliefs That Will Affect Care: None marital status: Current Living Situation: Spouse Current Living Situation Comment: lives with in ranch house current occupational status: retired How many Children do You have: 2 Feels Safe at Home: Yes Childhood Exposure to Second-Hand Smoke: No Diet: regular caffeine: Yes during the past year weight has: remained stable Dental Care, Regularly: No Physical Activity Frequency: Daily Seatbelt Use: always Sunscreen Use: No Do you think of yourself as: straight/heterosexual Sexual Activity: has been sexually active, but not for at least 12 months Gender Identity: Male Assistive Devices: Glasses and Hearing Aid - Bilateral Review of Systems Review of Systems: All systems reviewed & are unremarkable except as noted in HPI & below Physical Exam Physical Exam: VITALS: Reviewed. WEIGHT/BMI reviewed. GEN: Stated age appearing,well-developed, NAD. PSYCH: Good Judgment. AOx3. Normal memory, mood, and affect. HEENT -Head: NC/AT; -Eyes: PERRL, EOMI. No discharge or redn ess; -Ears: External ears are normal. -Nose: Normal nares. NECK: Supple, with no masses. CV: slow regular rate, 2+ systolic murmur present. LUNGS: CTAB, no w/r/c. ABD: Soft, NT/ND, NBS, no masses or organomegaly. : N/A SKIN: Warm, well perfused. No skin rashes or abnormal lesions. MSK: No deformities, Normal gait. EXT: No clubbing, cyanosis, or edema. NEURO: Ambulating with no limitations. Normal muscle strength and tone. No focal deficits. Results & Data Results & Data Vital Signs (Past 12 Hours) Vital Signs Temp Pulse Pulse Resp BP BP BP 02/07/25 16:12 60 16 91/52 L 02/07/25 16:00 60 16 89/50 L 02/07/25 15:00 65 17 97/51 L 02/07/25 14:33 60 18 91/49 L 02/07/25 14:00 36.6 C 02/07/25 14:00 62 16 91/51 L 02/07/25 13:15 67 18 101/59 L 02/07/25 13:00 62 18 100/59 L 02/07/25 12:45 63 18 104/60 02/07/25 12:30 62 18 107/55 L 02/07/25 12:15 60 16 90/53 L 02/07/25 12:00 82 16 101/55 L 02/07/25 11:45 80 16 99/58 L 02/07/25 11:00 55 L 21 106/62 02/07/25 10:42 55 L 21 106/62 02/07/25 10:30 33 L 14 106/47 L 02/07/25 10:18 32 L 13 106/47 L 02/07/25 10:01 35 L 30 H 96/42 L 02/07/25 09:46 35 L 30 H 94/40 L 02/07/25 09:41 36 L 18 94/42 L 02/07/25 09:29 28 L 02/07/25 09:15 34 L 15 97/46 L 02/07/25 09:07 35 L 02/07/25 09:01 35 L 16 92/42 L 02/07/25 08:30 59 L 17 102/61 02/07/25 08:00 59 L 17 110/63 02/07/25 07:30 61 15 117/55 L 02/07/25 07:06 65 02/07/25 06:59 65 17 02/07/25 06:53 36.8 C 72 17 107/59 L Pulse Ox O2 Del Method O2 Flow Rate 02/07/25 16:12 94 Room Air 02/07/25 16:00 94 Room Air 02/07/25 15:00 94 Room Air 02/07/25 14:33 93 Room Air 02/07/25 14:00 02/07/25 14:00 96 Room Air 02/07/25 13:15 94 Room Air 02/07/25 13:00 94 Room Air 02/07/25 12:45 94 Room Air 02/07/25 12:30 94 Room Air 02/07/25 12:15 94 Room Air 02/07/25 12:00 93 Room Air 02/07/25 11:45 92 Room Air 02/07/25 11:00 97 Nasal Cannula 2 02/07/25 10:42 97 02/07/25 10:30 95 02/07/25 10:18 95 02/07/25 10:01 94 02/07/25 09:46 94 02/07/25 09:41 93 Room Air 02/07/25 09:29 02/07/25 09:15 94 02/07/25 09:07 02/07/25 09:01 94 02/07/25 08:30 98 02/07/25 08:00 97 02/07/25 07:30 96 02/07/25 07:06 02/07/25 06:59 95 Room Air 02/07/25 06:53 95 Room Air Critical Care Results & Data Vital Signs (Past 12 Hours) Vital Signs Temp Pulse Pulse Resp BP BP BP 02/07/25 16:12 60 16 91/52 L 02/07/25 16:00 60 16 89/50 L 02/07/25 15:00 65 17 97/51 L 02/07/25 14:33 60 18 91/49 L 02/07/25 14:00 36.6 C 02/07/25 14:00 62 16 91/51 L 02/07/25 13:15 67 18 101/59 L 02/07/25 13:00 62 18 100/59 L 02/07/25 12:45 63 18 104/60 02/07/25 12:30 62 18 107/55 L 02/07/25 12:15 60 16 90/53 L 02/07/25 12:00 82 16 101/55 L 02/07/25 11:45 80 16 99/58 L 02/07/25 11:00 55 L 21 106/62 02/07/25 10:42 55 L 21 106/62 02/07/25 10:30 33 L 14 106/47 L 02/07/25 10:18 32 L 13 106/47 L 02/07/25 10:01 35 L 30 H 96/42 L 02/07/25 09:46 35 L 30 H 94/40 L 02/07/25 09:41 36 L 18 94/42 L 02/07/25 09:29 28 L 02/07/25 09:15 34 L 15 97/46 L 02/07/25 09:07 35 L 02/07/25 09:01 35 L 16 92/42 L 02/07/25 08:30 59 L 17 102/61 02/07/25 08:00 59 L 17 110/63 02/07/25 07:30 61 15 117/55 L 02/07/25 07:06 65 02/07/25 06:59 65 17 02/07/25 06:53 36.8 C 72 17 107/59 L Pulse Ox O2 Del Method O2 Flow Rate 02/07/25 16:12 94 Room Air 02/07/25 16:00 94 Room Air 02/07/25 15:00 94 Room Air 02/07/25 14:33 93 Room Air 02/07/25 14:00 02/07/25 14:00 96 Room Air 02/07/25 13:15 94 Room Air 02/07/25 13:00 94 Room Air 02/07/25 12:45 94 Room Air 02/07/25 12:30 94 Room Air 02/07/25 12:15 94 Room Air 02/07/25 12:00 93 Room Air 02/07/25 11:45 92 Room Air 02/07/25 11:00 97 Nasal Cannula 2 02/07/25 10:42 97 02/07/25 10:30 95 02/07/25 10:18 95 02/07/25 10:01 94 02/07/25 09:46 94 02/07/25 09:41 93 Room Air 02/07/25 09:29 02/07/25 09:15 94 02/07/25 09:07 02/07/25 09:01 94 02/07/25 08:30 98 02/07/25 08:00 97 02/07/25 07:30 96 02/07/25 07:06 02/07/25 06:59 95 Room Air 02/07/25 06:53 95 Room Air Lab & Micro Results (Past 24 Hours) RBC 4.20 M/uL (4.70-6.10) L 02/07/25 WBC 6.94 K/ul (4.8-10.8) 02/07/25 Hgb 12.6 g/dl (14.0-18.0) L 02/07/25 Hct 36.7 % (42.0-52.0) L 02/07/25 MCV 87.4 fL (80.0-100.0) 02/07/25 MCH 30.0 pg (25.0-34.0) 02/07/25 MCHC 34.3 g/dL (32.0-36.0) 02/07/25 RDW Standard Deviation 46.0 fL (36.4-46.3) 02/07/25 RDW Coefficient of Variation 14.5 % (11.5-14.5) 02/07/25 Plt Count 177 K/uL (130-400) 02/07/25 MPV 9.3 fL (9.4-12.4) L 02/07/25 Neutrophils (%) (Auto) 58.3 % 02/07/25 Lymphocytes (%) (Auto) 25.9 % 02/07/25 Monocytes # (Auto) 0.81 K/uL (0.11-0.59) H 02/07/25 Eosinophils # (Auto) 0.23 K/uL (0.00-0.50) 02/07/25 Immature Granulocyte % (Auto) 0.4 % 02/07/25 Neutrophils # (Auto) 4.04 K/uL (1.40-6.50) 02/07/25 Lymphocytes # (Auto) 1.80 K/uL (1.20-3.40) 02/07/25 Monocytes # (Auto) 0.81 K/uL (0.11-0.59) H 02/07/25 Eosinophils # (Auto) 0.23 K/uL (0.00-0.50) 02/07/25 Basophils # (Auto) 0.03 K/uL (0.00-0.20) 02/07/25 Immature Granulocyte # (Auto) 0.03 K/uL (0.01-0.20) 5 Na 134 mmol/L (136-145) L 02/07/25 K 3.7 mmol/L (3.5-5.1) 02/07/25 Cl 102 mmol/L (98-107) 02/07/25 CO2 25 mmol/L (21-32) 02/07/25 Anion Gap 7 (3-11) 02/07/25 BUN 28 mg/dl (6-23) H 02/07/25 Creatinine 1.36 mg/dl (0.6-1.4) 02/07/25 BUN/Creatinine Ratio 20.6 (10-20) H 02/07/25 Glu 100 mg/dl (70-99(Fasting)) H 02/07/25 Ca 9.0 mg/dl (8.6-10.3) 02/07/25 Total Bilirubin 1.0 mg/dl (0.2-1.0) 02/07/25 AST 18 U/L (13-39) 02/07/25 ALT 14 U/L (7-52) 02/07/25 Alkaline Phosphatase 61 U/L (34-104) 02/07/25 TP 6.1 gm/dl (6.0-8.3) 02/07/25 Albumin 3.8 gm/dl (3.4-5.0) 02/07/25 Globulin 2.3 gm/dl (2.5-4.0) L 02/07/25 Albumin/Globulin Ratio 1.7 (0.9-2) 02/07/25 Calcium Level 9.0 mg/dl (8.6-10.3) 02/07/25 07:15 Diagnostic Findings (Past 24 Hours) Chest X-Ray 02/07/25 06:59 EXAM: XR chest 1V portable CLINICAL HISTORY: Chest pain, nonspecific TECHNIQUE: An X-ray image of the chest is obtained in AP projection. COMPARISON: No prior studies are available for comparison. FINDINGS: Pulmonary Parenchyma: Well defined opacity noted involving right lower zone- possibility of basal consolidation likely over diaphragmatic hump Rest of both lungs are clear. Heart and Mediastinum: Heart size and shape are normal. No mediastinal widening or masses. No hilar or mediastinal lymphadenopathy. Bony Thorax: Bony thorax appears intact without fractures or deformities. Soft Tissues: Soft tissues overlying the chest wall are unremarkable. IMPRESSION: Well defined opacity noted involving right lower zone- possibility of basal consolidation likely over diaphragmatic hump- CT chest correlation suggested. Electronically signed by Marty Vu 02-07-2025 07:[address] 02/07/25 08:[address] CONTRAST CT DOSE: 1594 HISTORY: abn cxr per rads TECHNIQUE: Multiaxial CT images of the chest were performed following the IV administration of 90 cc of Optiray. A dose lowering technique was utilized adhering to the principles of ALARA. COMPARISON STUDY: Chest x-ray earlier today and CT of 05/21/2022 FINDINGS: There is a stable moderate to large hiatal hernia. There is stable mild elevation of the right hemidiaphragm. There is bandlike consolidation posteriorly in the lung bases which is mildly progressive compared to the prior CT, atelectasis versus early pneumonia. No other pulmonary consolidation or pleural effusion seen. No pneumothorax. Stable calcified granuloma left upper lobe. There are a few stable small pulmonary nodules, largest anterior lateral right upper lobe measures 5 mm series 7 image 100, stable. No interval significant pulmonary nodule. No enlarged adenopathy. No pericardial effusion. There are diffuse coronary artery and aortic calcifications. There are aortic va lvular calcifications. There is a progressive chronic appearing vertebral body compression fracture T8 with severe height loss. There is a stable moderate vertebral body compression abnormality at T12. Stable old right rib fractures. No acute osseous finding seen. IMPRESSION: Atelectasis versus early pneumonia in the lung bases. Otherwise as described. ACT 112: Negative or not required by law. Electronically signed by: Rohit Warren M.D. 02/07/2025 9:[address] 02/07/25 08:29 CT head/brain wo con CLINICAL HISTORY: 89 years-old Male with lightheaded. Acute lightheadedness TECHNIQUE: Multiple axial CT images of the head were obtained without contrast. A dose lowering technique was utilized adhering to the principles of ALARA. CT DOSE: 1593.59 mGy.cm COMPARISON: None. FINDINGS: No acute intracranial hemorrhage, midline shift, intracranial mass, hydrocephalus, territorial ischemia or abnormal extra-axial collection. Involutional changes with white matter hypodensities suggestive of chronic microvascular ischemic disease. Left occipital lobe encephalomalacia The calvarium is intact. The paranasal sinuses, mastoid air cells, and middle ear cavities are clear. IMPRESSION: No acute intracranial abnormality. ACT 112: Negative or not required by law. The above report was generated using voice recognition software. It may contain grammatical, syntax or spelling errors. Electronically signed by: Aime Tirado M.D. 02/07/2025 9:06 AM I & O Totals 24 Hours 02/06/25 02/07/25 02/08/25 06:59 06:59 06:59 Intake Total 1000 / 1000 Output Total 351 / 351 Balance 649 / 649 Cumulative 02/07/25 06:35 thru 02/07/25 16:18 Intake Total 1000 Output Total 351 Balance 649 RT Ventilator Mngmt (Last Documented) Ventilator Ordered Settings Respiratory Rate 16 02/07/25 16:12 Ventilator - PT Measurements Respiratory Rate 16 Coding Level of Care Code 14983 CRITICAL CARE 1ST 30-74M Diagnoses Acute hypotension I95.9 Atrioventricular block, Mobitz type 2 I44.1 Complete heart block I44.2 Hyponatremia E87.1
--- NOTE | 2025-02-07 19:17 | Communication Note ---
Date of Service: February 07, 2025 Lyme serologies negative. Pt to be NPO after midnight. Planed dual chamber pacemaker in am with Dr Douglas. Charli Casanova DO
[2025-02-07] MEDS: PRAVASTATIN SOD 20 MG TAB PO SCH (21:12)
[2025-02-07] MEDS ORDERED: STAT IV Infusion **Titration per Protocol STA (23:51)
[2025-02-07] MEDS: DOPamine 400MG / 250ML D5W IV ONE (23:56)
[2025-02-08] MEDS: MIDAZOLAM HCL 1 MG/ML 2ML VIAL ONE ×2 (00:07→02:44)
[2025-02-08] MEDS: EPINEPHrine/NSS 4 MG/254 ML BAG IV SCH (00:36)
[2025-02-08] MEDS ORDERED: STAT IV Infusion **Titration per Protocol STA (01:02)
--- NOTE | 2025-02-08 01:13 | Communication Note ---
Date of Service: February 08, 2025 Notified by RN of lack of TVP capture. Intermittent asystole alarm. Arrived to bedside, patient awakens to voice. Pale. BP unable to be measured. Hypoxic to 85%. mA increased as high as 15mA without capture. Dopamine infusion started at 5mcg/kg/min, titrated without effect. Externally paced at 60bpm, mA 10 with effect. Capture 50% effective despite 20mA. BP improved. He received 25mcg of fentanyl and 1mg of midazolam for comfort. Dr. Casanova arrived emergently to bedside. TVP adjusted by Dr. Casanova without change. Epinephrine infusion started. Patient was transported to cardiac catheterization lab. CC time 43 minutes directly coordinating care at bedside. Coding Level of Care Code 19500 CRITICAL CARE 1ST 30-74M Time Spent (min) 43
--- NOTE | 2025-02-08 01:20 | Cardiology Progress Note ---
Date of Service February 08, 2025 Assessment & Plan (1) Complete heart block: Plan: Loss of capture of the temporary pacemaker wire despite increasing the output and advancing the wire. Limited echo revealed no pericardial effusion. Lead visualized in the RV. HR remained in 30s despite peripheral dopamine infusion and low dose epinephrine. Heart rate improved to the 60s to 70s with transcutaneous pacing with intermittent capture of transcutaneous pacing. Heart Alert team activated. Case discussed with Dr Garza at bedside. Lead to be repositioned under fluoroscopy in the slabber light. Updated sonJoão by phone. Charli Casanova, Admission and Anticipated Discharge Date Admission Date: February 07, 2025 Subjective Notified via [place] Text at 11:50 pm on 02/07/25 that the temporary transvenous pacemaker lost RV capture. This did not improve with increasing the MA. Physical Exam Physical Exam: HR 30-70 , SBP 100 mm Hg. Gen: conversant, well perfused Results & Data Vital Signs (Past 12 Hours) Vital Signs Temp Pulse Pulse Resp BP BP Pulse Ox 02/07/25 22:01 86/51 L 02/07/25 22:01 86/51 L 02/07/25 22:00 60 22 91 02/07/25 21:06 59 L 19 94 02/07/25 21:00 83/59 L 02/07/25 21:00 83/59 L 02/07/25 20:54 59 L 21 93 02/07/25 20:30 62 16 94 02/07/25 20:06 61 18 94 02/07/25 20:00 95/59 L 02/07/25 20:00 95/59 L 02/07/25 19:48 61 16 94 02/07/25 19:36 62 15 92 02/07/25 19:03 60 17 93 02/07/25 19:00 107/53 L 02/07/25 19:00 107/53 L 02/07/25 19:00 107/53 L 02/07/25 18:25 36.6 C 02/07/25 18:00 60 23 94/50 L 93 02/07/25 17:00 60 17 107/57 L 93 02/07/25 16:12 60 16 91/52 L 94 02/07/25 16:00 60 16 89/50 L 94 02/07/25 15:00 65 17 97/51 L 94 02/07/25 14:33 60 18 91/49 L 93 02/07/25 14:00 36.6 C 02/07/25 14:00 62 16 91/51 L 96 02/07/25 13:15 67 18 101/59 L 94 O2 Del Method 02/07/25 22:01 02/07/25 22:01 02/07/25 22:00 02/07/25 21:06 02/07/25 21:00 02/07/25 21:00 02/07/25 20:54 02/07/25 20:30 02/07/25 20:06 02/07/25 20:00 02/07/25 20:00 02/07/25 19:48 02/07/25 19:36 02/07/25 19:03 02/07/25 19:00 02/07/25 19:00 02/07/25 19:00 02/07/25 18:25 02/07/25 18:00 Room Air 02/07/25 17:00 Room Air 02/07/25 16:12 Room Air 02/07/25 16:00 Room Air 02/07/25 15:00 Room Air 02/07/25 14:33 Room Air 02/07/25 14:00 02/07/25 14:00 Room Air 02/07/25 13:15 Room Air PG Care Time/CCT 75 minutes from 12:15 to 130 am. Coding Level of Care Code 87182 CRITICAL CARE 1ST 30-74M Diagnoses Complete heart block I44.2
--- NOTE | 2025-02-08 01:42 | Cardiac Catheterization ---
[facility] Data: Superintendent Greens Cardiac Status Clinical evaluation leading to the procedure CAD Presenation: Sx unlikely to be ischemic Diagnostic Physicians Name: Braydon Garza MD Closure Device Recommendations: Management Recommendatons (Permanent pacemaker) Cardiac Cath Procedure Full Procedure Date February 08, 2025 Pre-Procedure Diagnosis Pre-Procedure Diagnosis: Arrhythmia (Complete heart block) AUC Score AUC Score: 7 Post-Procedure Diagnosis Post-Procedure Diagnosis: Cardiothoracic Finding (Complete heart block) Procedure(s) Performed Procedure(s) Performed: Temporary Pacemaker (reposition under fluoroscopy) Manufacturing Inspector Braydon Garza MD Asphalt Coater(s) Leelee Estimated Blood Loss Estimated Blood Loss: 0 Summary of Findings Temporary transvenous pacemaker reposition Indication: Complete heart block. Failure of transvenous pacemaker to capture at high outputs Procedure: 7 Fr sheath left in place in RT IJ from procedure yesterday -- Pacing wire/sheath and RT IJ site re-prepped under sterile conditions. Underf fluoroscopy pacing wire retracted from prior position and redirected to RV apex. Appropriate pacing confirmed to outputs less than 0.5 mA Final pacemaker settings: VVI 60 bpm, output 5 mA Summary: 1. Successful re-position of temporary transvenous pacemaker Recommendations: Scheduled for PPM first thing this morning with Dr. Douglas. Hemodynamics Rest Ao:: -- Final Ao: -- LV: -- Recommendations Recommendations: Management Recommendatons (Permanent pacemaker) Radiation Exposure (mGy) 205 Contrast (mls) -- Anesthesia None Procedural Complication(s) None Disposition ICU I attest to the content of the Intraoperative Record and any orders documented therein. Any exceptions are noted below. [facility] Card Cath Procedure Codes Therapeutic Services & Ancillary Procedure 1: Cardiovascular Tx and Anc Procedures: 58646 Temp Pacer Insert (reposition) PG Care Time/CCT Total # of Minutes Spent Total Time Spent with Patient: Total time spent is greater than 50% in coordination of care (as documented) at patient's floor/unit and/or counseling patient:
[2025-02-08] MEDS: HEPARIN (PORCINE) 1000 UNIT/ML 10 ML (CATH LAB USE ONLY) ONE (02:44)
[2025-02-08] MEDS: OPTIRAY 350 ONE (02:45)
[2025-02-08] MEDS: NITROGLYCERIN/D5W 100MCG/ML 20ML SYR ONE (02:45)
[2025-02-08] MEDS: MIDAZOLAM HCL 1 MG/ML 2ML VIAL IV STA (02:45)
[2025-02-08] MEDS: niCARdipine 2,000 MCG/20 ML SYR ONE (02:45)
[2025-02-08 04:51] LABS: Hematocrit (blood only) 32.9 % (42.0-52.0); Hemoglobin 11.5 g/dl (14.0-18.0); Immature Granulocytes # (auto) 0.03 K/uL (0.01-0.20); Immature Granulocytes % (auto) 0.3 %; Mean Corpuscular Hemoglobin 30.7 pg (25.0-34.0); Mean Corpuscular Volume 88.0 fL (80.0-100.0); Platelet Count 168 K/uL (130-400); RDW Standard Deviation 46.6 fL (36.4-46.3); Red Blood Count 3.74 M/uL (4.70-6.10); White Blood Count 8.61 K/ul (4.8-10.8)
[2025-02-08 05:07] LABS: Anion Gap 4.0 (3-11); Blood Urea Nitrogen 26.0 mg/dl (6-23); Calcium 8.1 mg/dl (8.6-10.3); Carbon Dioxide 25.0 mmol/L (21-32); Chloride 105.0 mmol/L (98-107); Creatinine Clr Calc Pharmacy 39.8 ml/min; Glucose 111.0 mg/dl (70-99(Fasting)); Magnesium 2.0 mg/dl (1.7-2.4); Potassium 3.4 mmol/L (3.5-5.1); Sodium 134.0 mmol/L (136-145)
--- NOTE | 2025-02-08 06:52 | Critical Care Progress Note ---
Date of Service February 08, 2025 Assessment & Plan (1) Dizziness: (2) Complete heart block: Plan Luis Maynard is an 89-year-old male with past medical history of mitral regurgitation, hypertension, hyperlipidemia, diastolic heart failure, BPH, AAA, nephrolithiasis, and osteoporosis; who presented to [facility] on 02/07/2025 with dizziness. Patient found to be in complete heart block. Patient taken to finishing lab technician for temporary transvenous pacemaker. Pt underwent permanent pacemaker placement with morning. Pt has returned to ICU stable and will be ready to down grade to medical floor. Neuro: -No acute issues -Monitor neuro exam CV: Complete heart block -HR on admission 24-35 bpm. -Viral and tickborne etiology, Lyme screen negative. Remainder of panel are pending -TTVP placed with full capture at 60bpm and 5mA Underwent permanent pacer this am -TTE pre pacer showed no wall abnormalities, EF of 55=60%, normal size right ventricle, no significant prosthetic valve regurg/mild leaflet thickening -Restarted metoprolol and losartan post procedure -Pt stable from cardiac stand point post procedure and able to downgrade to medical floor Pulm -No acute issues -Maintain SpO2 > 92% -Patient was on 2L NC and weaned to room air. GI: FEN -DC MIVF -resume hearth healthy diet : -Creatinine 1.22 today -BUN 26 -Monitor renal function in am. -Monitor and replace electrolytes appropriate. Heme: Anemia related to chronic disease -Hgb 11.5 pre procedure -Hct 32.9 -MCV 88.0 -Monitor and transfuse for Hgb < 7 or other signs of acute hemorrhage Endo: Stress Hyperglycemia -BG range 114-142 -Maintain BG 140-180 -Hyperglycemia protocol ID: -No acute issue -WBC 8.61 -Afebrile -Monitor and culture as appropriate. Prophylaxis: -SCD for mechanical DVT prophylaxis -GI prophlyaxis- none Disposition: Downgrade to med/tele. Patient is DNR/DNI. Admission and Anticipated Discharge Date Admission Date: February 07, 2025 Supervising Physician Co-Signing Physician Notes Dr. May was resident physician during care of patient. I separately evaluated patient for echavarria portions of the history and the exam. I was present during the critical portion of medical decision making, and I discussed the case with the resident. I generally agree with the findings and plan. Patient underwent permanent pacemaker placement after eventful morning of losing capture of temporary pacemaker. Patient is hemodynamically stable with functioning permanent pacer stable for downgrade out of ICU. Subjective Overnight, pt's pacer lost capture. He was started on dopamine, but did not respond. He was externally paced and given epinephrine and eventually went to the finishing lab technician for repositioning of transvenous leads. This morning, pt's Hr is at 60. He is scheduled for permanent pacer this morning. Pt feeling generally well. No complaints. Physical Exam Physical Exam: Gen: NAD HENT: Normocephalic, atraumatic. External ear without deformities. Trachea midline, no thyromegaly Cardio: Internally paced, RRR, no murmurs or clicks. Resp: CTAB, Equal bilateral chest rise, no increased work of breathing GI: Non distended, soft, non tender, normoactive bowel sounds MSK: Moving all 4 extremities independently Skin: Dry, of normal skin tone, Neuro: A& O x 3, normal affect Results & Data Results & Data Vital Signs (Past 12 Hours) Vital Signs Pulse Resp BP Pulse Ox 02/08/25 05:09 60 15 128/55 L 95 02/08/25 04:09 65 19 131/71 96 02/08/25 03:18 60 17 120/57 L 93 02/08/25 02:30 64 25 H 91 02/08/25 02:27 60 15 92 02/08/25 02:15 128/55 L 02/08/25 02:15 128/55 L 02/08/25 01:23 117/57 L 02/08/25 01:21 101/56 L 02/08/25 01:21 85 17 97 02/08/25 01:16 111/41 L 02/08/25 01:16 111/41 L 02/08/25 01:16 111/41 L 02/08/25 01:12 65 18 95 02/08/25 01:11 105/41 L 02/08/25 01:11 105/41 L 02/08/25 01:09 67 27 H 95 02/08/25 01:06 114/43 L 02/08/25 01:06 114/43 L 02/08/25 01:06 114/43 L 02/08/25 01:06 71 23 95 02/08/25 01:01 106/44 L 02/08/25 00:55 110/43 L 02/08/25 00:45 105/43 L 02/08/25 00:45 105/43 L 02/08/25 00:39 72 19 97 02/08/25 00:38 106/45 L 02/08/25 00:38 106/45 L 02/08/25 00:36 70 46 H 97 02/08/25 00:36 107/46 L 02/08/25 00:36 107/46 L 02/08/25 00:15 79 21 89 L 02/08/25 00:15 110/47 L 02/08/25 00:15 110/47 L 02/08/25 00:15 110/47 L 02/08/25 00:10 132/82 02/07/25 23:36 60 19 92 02/07/25 23:30 56 L 15 94 02/07/25 23:06 60 12 93 02/07/25 23:00 89/60 L 02/07/25 23:00 89/60 L 02/07/25 22:57 60 7 L 95 02/07/25 22:33 60 7 L 93 02/07/25 22:01 86/51 L 02/07/25 22:01 86/51 L 02/07/25 22:00 60 22 91 02/07/25 21:06 59 L 19 94 02/07/25 21:00 83/59 L 02/07/25 21:00 83/59 L 02/07/25 20:54 59 L 21 93 02/07/25 20:30 62 16 94 02/07/25 20:06 61 18 94 02/07/25 20:00 95/59 L 02/07/25 20:00 95/59 L 02/07/25 19:48 61 16 94 02/07/25 19:36 62 15 92 02/07/25 19:03 60 17 93 02/07/25 19:00 107/53 L 02/07/25 19:00 107/53 L 02/07/25 19:00 107/53 L Resident Activity Tracking Resident Involvement: Resident Care Provided Care Provided: Adult Hospital Medicine
[2025-02-08] MEDS ORDERED: POTASSIUM CHLORIDE CRTAB 20 MEQ TABCR PO STA (08:01)
--- NOTE | 2025-02-08 08:02 | Pre Anesthesia Assessment ---
Date of Service February 08, 2025 Pre Sedation Assessment Vital Signs Temp Pulse Pulse Resp BP BP BP 02/08/25 07:29 60 14 115/52 L 02/08/25 07:00 36.8 C 02/08/25 07:00 60 18 02/08/25 06:30 60 16 02/08/25 06:03 53 L 10 L 02/08/25 05:36 62 14 02/08/25 05:09 60 15 128/55 L 02/08/25 04:09 65 19 131/71 02/08/25 03:18 60 17 120/57 L 02/08/25 02:30 64 25 H 02/08/25 02:27 60 15 02/08/25 02:15 128/55 L 02/08/25 02:15 128/55 L 02/08/25 01:23 117/57 L 02/08/25 01:21 101/56 L 02/08/25 01:21 85 17 02/08/25 01:16 111/41 L 02/08/25 01:16 111/41 L 02/08/25 01:16 111/41 L 02/08/25 01:12 65 18 02/08/25 01:11 105/41 L 02/08/25 01:11 105/41 L 02/08/25 01:09 67 27 H 02/08/25 01:06 114/43 L 02/08/25 01:06 114/43 L 02/08/25 01:06 114/43 L 02/08/25 01:06 71 23 02/08/25 01:01 106/44 L 02/08/25 00:55 110/43 L 02/08/25 00:45 105/43 L 02/08/25 00:45 105/43 L 02/08/25 00:39 72 19 02/08/25 00:38 106/45 L 02/08/25 00:38 106/45 L 02/08/25 00:36 70 46 H 02/08/25 00:36 107/46 L 02/08/25 00:36 107/46 L 02/08/25 00:15 79 21 02/08/25 00:15 110/47 L 02/08/25 00:15 110/47 L 02/08/25 00:15 110/47 L 02/08/25 00:10 132/82 02/07/25 23:36 60 19 02/07/25 23:30 56 L 15 02/07/25 23:06 60 12 02/07/25 23:00 89/60 L 02/07/25 23:00 89/60 L 02/07/25 22:57 60 7 L 02/07/25 22:33 60 7 L 02/07/25 22:01 86/51 L 02/07/25 22:01 86/51 L 02/07/25 22:00 60 22 02/07/25 21:06 59 L 19 02/07/25 21:00 83/59 L 02/07/25 21:00 83/59 L 02/07/25 20:54 59 L 21 02/07/25 20:30 62 16 02/07/25 20:06 61 18 02/07/25 20:00 95/59 L 02/07/25 20:00 95/59 L 02/07/25 19:48 61 16 02/07/25 19:36 62 15 02/07/25 19:03 60 17 02/07/25 19:00 107/53 L 02/07/25 19:00 107/53 L 02/07/25 19:00 107/53 L 02/07/25 18:25 36.6 C 02/07/25 18:00 60 23 94/50 L 02/07/25 17:00 60 17 107/57 L 02/07/25 16:12 60 16 91/52 L 02/07/25 16:00 60 16 89/50 L 02/07/25 15:00 65 17 97/51 L 02/07/25 14:33 60 18 91/49 L 02/07/25 14:00 36.6 C 02/07/25 14:00 62 16 91/51 L 02/07/25 13:15 67 18 101/59 L 02/07/25 13:00 62 18 100/59 L 02/07/25 12:45 63 18 104/60 02/07/25 12:30 62 18 107/55 L 02/07/25 12:15 60 16 90/53 L 02/07/25 12:00 82 16 101/55 L 02/07/25 11:45 80 16 99/58 L 02/07/25 11:00 55 L 21 106/62 02/07/25 10:42 55 L 21 106/62 02/07/25 10:30 33 L 14 106/47 L 02/07/25 10:18 32 L 13 106/47 L 02/07/25 10:01 35 L 30 H 96/42 L 02/07/25 09:46 35 L 30 H 94/40 L 02/07/25 09:41 36 L 18 94/42 L 02/07/25 09:29 28 L 02/07/25 09:15 34 L 15 97/46 L 02/07/25 09:07 35 L 02/07/25 09:01 35 L 16 92/42 L 02/07/25 08:30 59 L 17 102/61 Pulse Ox O2 Del Method O2 Flow Rate 02/08/25 07:29 92 Room Air 02/08/25 07:00 02/08/25 07:00 95 02/08/25 06:30 91 02/08/25 06:03 95 02/08/25 05:36 93 02/08/25 05:09 95 02/08/25 04:09 96 02/08/25 03:18 93 02/08/25 02:30 91 02/08/25 02:27 92 02/08/25 02:15 02/08/25 02:15 02/08/25 01:23 02/08/25 01:21 02/08/25 01:21 97 02/08/25 01:16 02/08/25 01:16 02/08/25 01:16 02/08/25 01:12 95 02/08/25 01:11 02/08/25 01:11 02/08/25 01:09 95 02/08/25 01:06 02/08/25 01:06 02/08/25 01:06 02/08/25 01:06 95 02/08/25 01:01 02/08/25 00:55 02/08/25 00:45 02/08/25 00:45 02/08/25 00:39 97 02/08/25 00:38 02/08/25 00:38 02/08/25 00:36 97 02/08/25 00:36 02/08/25 00:36 02/08/25 00:15 89 L 02/08/25 00:15 02/08/25 00:15 02/08/25 00:15 02/08/25 00:10 02/07/25 23:36 92 02/07/25 23:30 94 02/07/25 23:06 93 02/07/25 23:00 02/07/25 23:00 02/07/25 22:57 95 02/07/25 22:33 93 02/07/25 22:01 02/07/25 22:01 02/07/25 22:00 91 02/07/25 21:06 94 02/07/25 21:00 02/07/25 21:00 02/07/25 20:54 93 02/07/25 20:30 94 02/07/25 20:06 94 02/07/25 20:00 02/07/25 20:00 02/07/25 19:48 94 02/07/25 19:36 92 02/07/25 19:03 93 02/07/25 19:00 02/07/25 19:00 02/07/25 19:00 02/07/25 18:25 02/07/25 18:00 93 Room Air 02/07/25 17:00 93 Room Air 02/07/25 16:12 94 Room Air 02/07/25 16:00 94 Room Air 02/07/25 15:00 94 Room Air 02/07/25 14:33 93 Room Air 02/07/25 14:00 02/07/25 14:00 96 Room Air 02/07/25 13:15 94 Room Air 02/07/25 13:00 94 Room Air 02/07/25 12:45 94 Room Air 02/07/25 12:30 94 Room Air 02/07/25 12:15 94 Room Air 02/07/25 12:00 93 Room Air 02/07/25 11:45 92 Room Air 02/07/25 11:00 97 Nasal Cannula 2 02/07/25 10:42 97 02/07/25 10:30 95 02/07/25 10:18 95 02/07/25 10:01 94 02/07/25 09:46 94 02/07/25 09:41 93 Room Air 02/07/25 09:29 02/07/25 09:15 94 02/07/25 09:07 02/07/25 09:01 94 02/07/25 08:30 98 Cardiovascular RRR, no murmur, no edema + irregularly irregular Respiratory normal respiratory effort, lungs clear to auscultation Pre-Sedation Airway Assessment Smoking Status: Never smoker Hx Sleep Apnea: No Hx Difficult Intubation: No Short, Thick Neck: No Thyromental Distance: > or= 3.5 Finger Breadths Oral Cavity: + Dentures Mallampati Class: IV ASA: ASA3 NPO Status Date of Last Intake of Fluids: 02/07/25 Time of Last Intake of Fluids: 18:00 Date of Last Intake of Solid Food: 02/07/25 Time of Last Intake of Solid Foods: 18:00 Procedure Planning Contraindications for Sedation: none Current Medications Reviewed: Yes Notes The planned sedation has been discussed with the patient. Informed Consent was obtained. I have identified the patient, determined the appropriateness of sedation and have assessed the patient immediately prior to the procedure. All medicine(s) and interventions are by my order.
--- NOTE | 2025-02-08 08:04 | History & Physical Bridge Note ---
Date of Service February 08, 2025 History & Physical Bridge Note I have examined the patient, reviewed the History & Physical and in the interval since the performance of the History & Physical I have noted the following changes of clinical significance: no changes noted. The patient has had continued complete heart block with very slow heart rates and significant, during the night his temporary pacemaker had to be repositioned. This morning he remains in heart block but did not turn off the pacemaker. He clearly needs a pacemaker as there is no reversible cause of his heart block. I reviewed the indications, procedure, risks and alternatives with the patient, and answered all questions. Patient understands and agrees to the procedure. Consent obtained. I also reviewed the risks and use of sedation, patient understands and consent obtained.
--- NOTE | 2025-02-08 08:19 | Hospitalist Progress Note ---
Date of Service February 08, 2025 Assessment & Plan (1) Dizziness: (2) Complete heart block: Plan Luis is an 89 year-old male with PMH of aortic dissection (repaired in 2004), HTN, hyperlipidemia, and mitral regurgitation, presenting for new onset three episodes of dizziness with no other neurological symptoms and source of trigger who was shown to have second degree AV block transitioning to third degree block and reverting back to sinus rhythm while in the ED. Head CT, Chest CT, and CXR did not show possible causes of his new onset arrhythmia, with chest CT showing possible atelectasis versus early pneumonia with no pulmonary symptoms thus far. He improved after placement of transvenous pacing procedure yesterday and went back to the OR this morning for permanent pacemaker placement. Vitals have been stable post-op. Plan #Dizziness l Third Degree AV Block Assessment: These past three dizziness episodes are likely due to new onset second/third degree heart block that he will go into and then revert back to sinus bradycardia. He was stable post transvenous pacing, but his vitals dropped overnight due to the pacing not working properly, which warranted return to the OR. Had pacemaker placement this AM and has been stable since pacemaker placement. Plan: - CCM in place - Holding home BP meds and tamsulosin as well as aspirin bc of cath procedure - Repeat EKG this AM does not show irregular heart rhythm post pacemaker placement. - ECHO 02/07/25: ordered per cards: mild thickening of prosthetic valves, EF = 55-60% - Pending recs from cards, D/C tomorrow if continues to be stable #Mitral regurgitation Assessment: Hx of chronic mitral regurg, followed by cards, currently asymptomatic for it and not medically managed. Plan: - ECHO 02/07/25: significant mitral regurg is absent - Continue to clinically monitor, currently asymptomatic #Hypertension Assessment: Chronic hx of HTN, currently hypotensive attributed to new onset second/third degree AV block and decreased fluid intake. Followed by outpatient cards. Plan: - Continue holding BP meds and tamsulosin given bradycardia and hypotension, re- evaluate post pacemaker placement #Hyperlipidemia Assessment: Chronic hx of hyperlipidemia, no known hx of CAD or carotid stenosis. Plan: - Resume home med Code Status: DNR/DNI DVT Prophylaxis: holding pharmaceutical prophylaxis in the setting of cards procedure today Diet: Heart healthy Dispo: ICU, downgrade once deemed stable Admission and Anticipated Discharge Date Admission Date: February 07, 2025 Supervising Physician Co-Signing Physician Notes I personally examined the patient and verified all echavarria points of history and exam, discussed case, and agree with decision making with Dr Ibanez and Billy Cheney MS4 feeling ok post PPM getting OOB vitals noted nad heent nc at mmm breathing unlabored no accessory muscles good effort skin no rashes no pallor or icterus neuro no focal deficits complete heart block - post transvenous pacer; now post PPM - increase activitty safe/stable for PCU hopefully home tomorrow otherwise as above Subjective Seen at bedside this AM, feels good and denies any symptoms. Denies SOB, chest pain, dizziness, nausea, vomiting. Has an appetite and looking forward to eating his meal post-op. Review of Systems Review of Systems: As noted in HPI. Physical Exam Physical Exam: General: Does not appear in acute distress. Sitting comfortably in bed. HEENT: Head is atraumatic and normocephalic. No signs of JVD. PERRLA. CV: S1 and S2 sounds present. No murmurs, rubs, or gallops. Irregular rate and rhythm. 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 Resp: CTA B/L. No rales, wheezing, or rhonchi. GI: Normoactive bowel sounds. No tenderness to palpation. MSK: No peripheral edema. No abnormal lesions visualized. Psych: Appropriate mood and affect. Results & Data Results & Data Vital Signs (Past 12 Hours) Vital Signs Temp Pulse Pulse Resp BP BP Pulse Ox 02/08/25 07:29 60 14 115/52 L 92 02/08/25 07:00 36.8 C 02/08/25 07:00 60 18 95 02/08/25 06:30 60 16 91 02/08/25 06:03 53 L 10 L 95 02/08/25 05:36 62 14 93 02/08/25 05:09 60 15 128/55 L 95 02/08/25 04:09 65 19 131/71 96 02/08/25 03:18 60 17 120/57 L 93 02/08/25 02:30 64 25 H 91 02/08/25 02:27 60 15 92 02/08/25 02:15 128/55 L 02/08/25 02:15 128/55 L 02/08/25 01:23 117/57 L 02/08/25 01:21 101/56 L 02/08/25 01:21 85 17 97 02/08/25 01:16 111/41 L 02/08/25 01:16 111/41 L 02/08/25 01:16 111/41 L 02/08/25 01:12 65 18 95 02/08/25 01:11 105/41 L 02/08/25 01:11 105/41 L 02/08/25 01:09 67 27 H 95 02/08/25 01:06 114/43 L 02/08/25 01:06 114/43 L 02/08/25 01:06 114/43 L 02/08/25 01:06 71 23 95 02/08/25 01:01 106/44 L 02/08/25 00:55 110/43 L 02/08/25 00:45 105/43 L 02/08/25 00:45 105/43 L 02/08/25 00:39 72 19 97 02/08/25 00:38 106/45 L 02/08/25 00:38 106/45 L 02/08/25 00:36 70 46 H 97 02/08/25 00:36 107/46 L 02/08/25 00:36 107/46 L 02/08/25 00:15 79 21 89 L 02/08/25 00:15 110/47 L 02/08/25 00:15 110/47 L 02/08/25 00:15 110/47 L 02/08/25 00:10 132/82 02/07/25 23:36 60 19 92 02/07/25 23:30 56 L 15 94 02/07/25 23:06 60 12 93 02/07/25 23:00 89/60 L 02/07/25 23:00 89/60 L 02/07/25 22:57 60 7 L 95 02/07/25 22:33 60 7 L 93 02/07/25 22:01 86/51 L 02/07/25 22:01 86/51 L 02/07/25 22:00 60 22 91 02/07/25 21:06 59 L 19 94 02/07/25 21:00 83/59 L 02/07/25 21:00 83/59 L 02/07/25 20:54 59 L 21 93 02/07/25 20:30 62 16 94 02/07/25 20:06 61 18 94 02/07/25 20:00 95/59 L 02/07/25 20:00 95/59 L 02/07/25 19:48 61 16 94 O2 Del Method 02/08/25 07:29 Room Air 02/08/25 07:00 02/08/25 07:00 02/08/25 06:30 02/08/25 06:03 02/08/25 05:36 02/08/25 05:09 02/08/25 04:09 02/08/25 03:18 02/08/25 02:30 02/08/25 02:27 02/08/25 02:15 02/08/25 02:15 02/08/25 01:23 02/08/25 01:21 02/08/25 01:21 02/08/25 01:16 02/08/25 01:16 02/08/25 01:16 02/08/25 01:12 02/08/25 01:11 02/08/25 01:11 02/08/25 01:09 02/08/25 01:06 02/08/25 01:06 02/08/25 01:06 02/08/25 01:06 02/08/25 01:01 02/08/25 00:55 02/08/25 00:45 02/08/25 00:45 02/08/25 00:39 02/08/25 00:38 02/08/25 00:38 02/08/25 00:36 02/08/25 00:36 02/08/25 00:36 02/08/25 00:15 02/08/25 00:15 02/08/25 00:15 02/08/25 00:15 02/08/25 00:10 02/07/25 23:36 02/07/25 23:30 02/07/25 23:06 02/07/25 23:00 02/07/25 23:00 02/07/25 22:57 02/07/25 22:33 02/07/25 22:01 02/07/25 22:01 02/07/25 22:00 02/07/25 21:06 02/07/25 21:00 02/07/25 21:00 02/07/25 20:54 02/07/25 20:30 02/07/25 20:06 02/07/25 20:00 02/07/25 20:00 02/07/25 19:48
[2025-02-08] MEDS: LIDOCAINE 1% LOCAL 20 ML VIAL ONE (08:29)
[2025-02-08] MEDS: WATER, STERILE FOR INJ 10 ML VIAL ONE (08:29)
[2025-02-08] MEDS: VANCOMYCIN HCL 1000MG/20ML VIAL ONE (08:29)
[2025-02-08] MEDS: ceFAZolin 330 MG/ML 1 GM VIAL ONE (09:15)
[2025-02-08] MEDS: MIDAZOLAM HCL 5 MG/ML 1 ML VIAL ONE (09:16)
--- NOTE | 2025-02-08 09:28 | Electrophysiology Report ---
Date of Service February 08, 2025 Electrophysiology Procedure Electrophysiology Procedure Report Preoperative diagnosis: Complete heart block Postoperative diagnosis: Same Procedure: Dual-chamber left bundle branch pacemaker implantation Temporary pacemaker removal Surgeon: Sherif Douglas MD Estimated blood loss: 20 cc Complications: None Disposition: Director Dental Services recovery Procedure details: After obtaining informed consent for the procedure, the patient was brought to the laboratory and prepped and draped in the standard sterile manner. The left prepectoral region was anesthetized with 1% lidocaine local anesthetic and left axillary venipuncture was performed by percutaneous technique and a guidewire placed through the left subclavian vein into the superior vena cava. The area was further infiltrated with 1% lidocaine local anesthetic and a 5 cm incision was made parallel to the left clavicle and 2 cm below it and carried down to the anterior pectoralis fascia. A pacemaker pocket was formed by blunt dissection anterior to the pectoralis fascia and a vancomycin-soaked sponge was placed in the pocket. A 9 [place] [employer] lead introducer was placed over the guidewire into the left subclavian vein, the dilator and guidewire were removed and a bipolar active fixation steroid tipped atrial lead was advanced through the introducer into the superior vena cava. A guidewire was placed through the introducer and the introducer was stripped from the lead and guidewire. A 7 [place] [employer] lead introducer was placed over the guidewire into the left subclavian vein, the dilator and guidewire were removed. A C315 His 02 septal sheath was advanced through the introducer over a guidewire and advanced into the right ventricular outflow tract. The guidewire and dilator were removed and the sheath was positioned in a mid septal location. A bipolar active fixation steroid tipped ventricular lead was advanced through the introducer and rotated to advance the screw into the septum. Septal penetration was confirmed by electrogram morphology. Pacing and sensing thresholds were evaluated in bipolar configuration and are noted on the data sheet. The septal sheath was stripped away from the lead and the introducer was removed over the lead. Using a curved stylette the atrial lead was positioned in the region of the atrial appendage and the screw extended fixing the lead in position. Pacing and sensing thresholds were evaluated in bipolar configuration and are recorded on the implant data sheet. Once the leads were in position they were attached to the anterior pectoralis fascia using 2 sutures of 2-0 silk around each lead collar. The vancomycin soaked sponge was removed from the pocket, hemostasis was obtained, the pacemaker was attached to the leads and placed in the pocket with the leads coiled beneath it. Once the pacemaker was connected to the leads and functioning normally the temporary pacemaker was removed from the IJ location under fluoroscopic guidance. The incision was closed with a running double subcutaneous closure of 3-0 Vicryl absorbable suture, followed by running subcuticular skin closure of 4-0 Vicryl absorbable suture. Bacitracin ointment was placed on the incision and a dressing applied. [facility]rophysiology codes Indication for Procedure (1) Intermittent complete heart block: Pacing Procedure 1: Pacin Insert/Replace Pacer A & V PG Moderate Sedation Codes Moderate Sedation Codes Procedure 1: Sedation/Anesthesia: 74437 Mod Sedation by the same physician;Init15 Min Child Age 5 & Up Procedure 2: Sedation/Anesthesia: 23732 Mod Sedation by the same physician; Ea [id number] Minutes
[2025-02-08] MEDS ORDERED: ACETAMINOPHEN W/CODEINE #3 1 TAB PO PRN (09:29)
[2025-02-08] MEDS ORDERED: ACETAMINOPHEN 325 MG TAB PO PRN (09:29)
--- NOTE | 2025-02-08 09:29 | Post Anesthesia Assessment ---
Date of Service February 08, 2025 Post Sedation Assessment Vital Signs Temp Pulse Pulse Resp BP BP BP 02/08/25 07:29 60 14 115/52 L 02/08/25 07:00 36.8 C 02/08/25 07:00 60 18 02/08/25 06:30 60 16 02/08/25 06:03 53 L 10 L 02/08/25 05:36 62 14 02/08/25 05:09 60 15 128/55 L 02/08/25 04:09 65 19 131/71 02/08/25 03:18 60 17 120/57 L 02/08/25 02:30 64 25 H 02/08/25 02:27 60 15 02/08/25 02:15 128/55 L 02/08/25 02:15 128/55 L 02/08/25 01:23 117/57 L 02/08/25 01:21 101/56 L 02/08/25 01:21 85 17 02/08/25 01:16 111/41 L 02/08/25 01:16 111/41 L 02/08/25 01:16 111/41 L 02/08/25 01:12 65 18 02/08/25 01:11 105/41 L 02/08/25 01:11 105/41 L 02/08/25 01:09 67 27 H 02/08/25 01:06 114/43 L 02/08/25 01:06 114/43 L 02/08/25 01:06 114/43 L 02/08/25 01:06 71 23 02/08/25 01:01 106/44 L 02/08/25 00:55 110/43 L 02/08/25 00:45 105/43 L 02/08/25 00:45 105/43 L 02/08/25 00:39 72 19 02/08/25 00:38 106/45 L 02/08/25 00:38 106/45 L 02/08/25 00:36 70 46 H 02/08/25 00:36 107/46 L 02/08/25 00:36 107/46 L 02/08/25 00:15 79 21 02/08/25 00:15 110/47 L 02/08/25 00:15 110/47 L 02/08/25 00:15 110/47 L 02/08/25 00:10 132/82 02/07/25 23:36 60 19 02/07/25 23:30 56 L 15 02/07/25 23:06 60 12 02/07/25 23:00 89/60 L 02/07/25 23:00 89/60 L 02/07/25 22:57 60 7 L 02/07/25 22:33 60 7 L 02/07/25 22:01 86/51 L 02/07/25 22:01 86/51 L 02/07/25 22:00 60 22 02/07/25 21:06 59 L 19 02/07/25 21:00 83/59 L 02/07/25 21:00 83/59 L 02/07/25 20:54 59 L 21 02/07/25 20:30 62 16 02/07/25 20:06 61 18 02/07/25 20:00 95/59 L 02/07/25 20:00 95/59 L 02/07/25 19:48 61 16 02/07/25 19:36 62 15 02/07/25 19:03 60 17 02/07/25 19:00 107/53 L 02/07/25 19:00 107/53 L 02/07/25 19:00 107/53 L 02/07/25 18:25 36.6 C 02/07/25 18:00 60 23 94/50 L 02/07/25 17:00 60 17 107/57 L 02/07/25 16:12 60 16 91/52 L 02/07/25 16:00 60 16 89/50 L 02/07/25 15:00 65 17 97/51 L 02/07/25 14:33 60 18 91/49 L 02/07/25 14:00 36.6 C 02/07/25 14:00 62 16 91/51 L 02/07/25 13:15 67 18 101/59 L 02/07/25 13:00 62 18 100/59 L 02/07/25 12:45 63 18 104/60 02/07/25 12:30 62 18 107/55 L 02/07/25 12:15 60 16 90/53 L 02/07/25 12:00 82 16 101/55 L 02/07/25 11:45 80 16 99/58 L 02/07/25 11:00 55 L 21 106/62 02/07/25 10:42 55 L 21 106/62 02/07/25 10:30 33 L 14 106/47 L 02/07/25 10:18 32 L 13 106/47 L 02/07/25 10:01 35 L 30 H 96/42 L 02/07/25 09:46 35 L 30 H 94/40 L 02/07/25 09:41 36 L 18 94/42 L 02/07/25 09:29 28 L Pulse Ox O2 Del Method O2 Flow Rate 02/08/25 07:29 92 Room Air 02/08/25 07:00 02/08/25 07:00 95 02/08/25 06:30 91 02/08/25 06:03 95 02/08/25 05:36 93 02/08/25 05:09 95 02/08/25 04:09 96 02/08/25 03:18 93 02/08/25 02:30 91 02/08/25 02:27 92 02/08/25 02:15 02/08/25 02:15 02/08/25 01:23 02/08/25 01:21 02/08/25 01:21 97 02/08/25 01:16 02/08/25 01:16 02/08/25 01:16 02/08/25 01:12 95 02/08/25 01:11 02/08/25 01:11 02/08/25 01:09 95 02/08/25 01:06 02/08/25 01:06 02/08/25 01:06 02/08/25 01:06 95 02/08/25 01:01 02/08/25 00:55 02/08/25 00:45 02/08/25 00:45 02/08/25 00:39 97 02/08/25 00:38 02/08/25 00:38 02/08/25 00:36 97 02/08/25 00:36 02/08/25 00:36 02/08/25 00:15 89 L 02/08/25 00:15 02/08/25 00:15 02/08/25 00:15 02/08/25 00:10 02/07/25 23:36 92 02/07/25 23:30 94 02/07/25 23:06 93 02/07/25 23:00 02/07/25 23:00 02/07/25 22:57 95 02/07/25 22:33 93 02/07/25 22:01 02/07/25 22:01 02/07/25 22:00 91 02/07/25 21:06 94 02/07/25 21:00 02/07/25 21:00 02/07/25 20:54 93 02/07/25 20:30 94 02/07/25 20:06 94 02/07/25 20:00 02/07/25 20:00 02/07/25 19:48 94 02/07/25 19:36 92 02/07/25 19:03 93 02/07/25 19:00 02/07/25 19:00 02/07/25 19:00 02/07/25 18:25 02/07/25 18:00 93 Room Air 02/07/25 17:00 93 Room Air 02/07/25 16:12 94 Room Air 02/07/25 16:00 94 Room Air 02/07/25 15:00 94 Room Air 02/07/25 14:33 93 Room Air 02/07/25 14:00 02/07/25 14:00 96 Room Air 02/07/25 13:15 94 Room Air 02/07/25 13:00 94 Room Air 02/07/25 12:45 94 Room Air 02/07/25 12:30 94 Room Air 02/07/25 12:15 94 Room Air 02/07/25 12:00 93 Room Air 02/07/25 11:45 92 Room Air 02/07/25 11:00 97 Nasal Cannula 2 02/07/25 10:42 97 02/07/25 10:30 95 02/07/25 10:18 95 02/07/25 10:01 94 02/07/25 09:46 94 02/07/25 09:41 93 Room Air 02/07/25 09:29 Recovery Score Activity: Moves 4 extremities Respiration: Deep Breath/Cough Circulation: +/-20% PreAnes Value Consciousness: Fully Awake Oxygen Saturation: > 92% On Room Air Post Anesthesia Score: 10 Discharge Sedation Level of Care: Fast Track Phase II Post Sedation Plan On clinical assessment, the patient appears to have tolerated the sedation without complications. Patient is recovering as anticipated. Patient will continue to be monitored by nursing and may be discharged when sedation discharge criteria are met per below protocol. Upon Completions of procedure up to 15 minutes continue every 5 minute vital signs and the P.A.R. score; then discharge to a Phase I or Fast Track to Phase II per the following guidelines: * Discharge Patient to appropriate Phase II area if PAR is 8 or greater or return to pre- procedure baseline. The post - procedure orders will be as directed. * If PAR score is less than 8 or not return to pre-procedure baseline then patient will follow Phase I monitoring till PAR is reached for Phase II. The Phase I may be done in procedure room or may call to secure a Phase I area. * If naloxone or flumazenil are used for reversal, hold in Phase I for continued monitoring from when last reversal dose was given for a minimum of 60 minutes or longer pending the nurse and/or physician discretion of patient condition before discharge to Phase II. Please call the Sedation Physician to re-evaluate and complete post-note for discharge to Phase II area. Do NOT discharge from procedure sedation or Phase 1 until post- sedation evaluation note is complete by procedure /sedation MD Sedation Discharge Instructions to be given to the patient at discharge to home.
--- NOTE | 2025-02-08 09:48 | Billing Data ---
Date of Service February 08, 2025 Coding Level of Care Code 94303 SUB INP/OBS CARE MIN
[2025-02-08] MEDS ORDERED: Nursing to Pharmacy Communication SCH (10:30)
[2025-02-08] MEDS: POTASSIUM CHLORIDE CRTAB 20 MEQ TABCR PO STA (10:47)
[2025-02-08 12:13] LABS: Appearance Urine Clear (Clear); Glucose Urine UA Negative (Negative)
--- NOTE | 2025-02-08 12:16 | Electrocardiogram Report ---
Test Reason : Blood Pressure : */* mmHG Vent. Rate : 35 BPM Atrial Rate : 35 BPM P-R Int : 332 ms QRS Dur : 138 ms QT Int : 522 ms P-R-T Axes : 54 -23 105 degrees QTcB Int : 398 ms Sinus tachycardia with 3:1 A-V conduction High degree AV block Left bundle branch block Abnormal ECG When compared with ECG of 07-Feb-2025 07:01, Significant changes have occurred Confirmed by Deepak Weber ([id number]) on 02/08/2025 12:16:19 PM Referred By: REFERRED SELF Confirmed By: Deepak Weber
--- NOTE | 2025-02-08 12:17 | Electrocardiogram Report ---
Test Reason : Blood Pressure : */* mmHG Vent. Rate : 33 BPM Atrial Rate : 33 BPM P-R Int : 328 ms QRS Dur : 136 ms QT Int : 540 ms P-R-T Axes : 70 -23 93 degrees QTcB Int : 399 ms Sinus tachycardia with 3:1 A-V conduction High degree AV block Left bundle branch block Abnormal ECG When compared with ECG of 07-Feb-2025 08:58, (unconfirmed) No significant change was found Confirmed by Deepak Weber ([id number]) on 02/08/2025 12:17:08 PM Referred By: REFERRED SELF Confirmed By: Deepak Weber
--- NOTE | 2025-02-08 12:18 | Electrocardiogram Report ---
Test Reason : Blood Pressure : */* mmHG Vent. Rate : 57 BPM Atrial Rate : 40 BPM P-R Int : * ms QRS Dur : 130 ms QT Int : 464 ms P-R-T Axes : * -27 141 degrees QTcB Int : 451 ms Sinus tachycardia High degree AV block Left bundle branch block Abnormal ECG When compared with ECG of 07-Feb-2025 09:02, (unconfirmed) QT has lengthened Confirmed by Deepak Weber ([id number]) on 02/08/2025 12:18:11 PM Referred By: REFERRED SELF Confirmed By: Deepak Weber
--- NOTE | 2025-02-08 12:19 | Electrocardiogram Report ---
Test Reason : Blood Pressure : */* mmHG Vent. Rate : 63 BPM Atrial Rate : 73 BPM P-R Int : * ms QRS Dur : 186 ms QT Int : 506 ms P-R-T Axes : 36 29 198 degrees QTcB Int : 517 ms Sinus rhythm with complete heart block and Ventricular-paced rhythm with occasional Premature ventric ular complexes Abnormal ECG When compared with ECG of 07-Feb-2025 09:33, (unconfirmed) Ventricular-paced rhythm now present Confirmed by Deepak Weber ([id number]) on 02/08/2025 12:18:45 PM Referred By: REFERRED SELF Confirmed By: Deepak Weber
--- NOTE | 2025-02-08 12:20 | Electrocardiogram Report ---
Test Reason : Blood Pressure : */* mmHG Vent. Rate : 60 BPM Atrial Rate : 60 BPM P-R Int : 138 ms QRS Dur : 146 ms QT Int : 472 ms P-R-T Axes : 0 -51 105 degrees QTcB Int : 472 ms AV dual-paced rhythm Abnormal ECG When compared with ECG of 07-Feb-2025 12:52, (unconfirmed) Significant changes have occurred Confirmed by Deepak Weber ([id number]) on 02/08/2025 12:19:35 PM Referred By: REFERRED SELF Confirmed By: Deepak Weber
--- NOTE | 2025-02-08 12:45 | Cardiology Progress Note ---
Date of Service February 08, 2025 Assessment & Plan (1) Complete heart block: Plan: Loss of capture of the temporary pacemaker wire despite increasing the output and advancing the wire. Limited echo revealed no pericardial effusion. Lead visualized in the RV. HR remained in 30s despite peripheral dopamine infusion and low dose epinephrine. Heart rate improved to the 60s to 70s with transcutaneous pacing with intermittent capture of transcutaneous pacing. Heart Alert team activated. Case discussed with Dr Garza at bedside. Lead to be repositioned under fluoroscopy in the cathode ray tube salvage processor. Updated sonJoão by phone. Charli Casanova DO (2) Aortic dissection: (3) Hypertension: Plan 89-year-old presenting with symptomatic complete heart block with progression of underlying conduction system disease. 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 1. Complete heart block status post dual-chamber pacemaker insertion Plan resume losartan in a.m., resume metoprolol succinate at reduced dose 12.5 mg p.o. daily today gradually increase activity in hospital Admission and Anticipated Discharge Date Admission Date: February 07, 2025 Subjective Patient seen and personally examined. Events of prior evening and night noted. Patient underwent dual-chamber permanent pacemaker insertion this morning with removal of temporary transvenous pacing device uneventfully Feels better this morning no complaints other than mild incisional discomfort Review of Systems Review of Systems: All systems reviewed & are unremarkable except as noted in Subjective Physical Exam Constitutional: no acute distress Eyes: PERRL, conjunctivae normal, anicteric sclerae ENMT: external ear and nose normal, oropharynx normal Neck: trachea midline, no thyromegaly Respiratory: normal respiratory effort, lungs clear to auscultation Cardiovascular: Rate/Rhythm: regular rate and regular rhythm Heart Sounds: + murmur Vessels: no JVD Extremities: no edema Chest (Breasts): Chest: + pacemaker (New incision site bandaged and clean) Gastrointestinal (Abdomen): normal bowel sounds, soft, nontender, no hepatosplenomegaly Results & Data Vital Signs (Past 12 Hours) Vital Signs Temp Pulse Pulse Resp BP BP BP 02/08/25 12:30 36.5 C 77 17 132/61 02/08/25 12:00 36.5 C 73 16 116/61 02/08/25 11:30 36.6 C 100 H 19 126/70 02/08/25 11:00 36.5 C 81 16 114/58 L 02/08/25 10:45 36.5 C 71 16 116/57 L 02/08/25 10:30 36.5 C 68 16 106/50 L 02/08/25 10:15 62 02/08/25 10:15 36.5 C 71 22 116/56 L 02/08/25 10:10 36.5 C 62 18 116/56 L 02/08/25 09:51 60 18 111/59 L 02/08/25 09:36 60 18 116/58 L 02/08/25 07:29 60 14 115/52 L 02/08/25 07:00 36.8 C 02/08/25 07:00 60 18 02/08/25 06:30 60 16 02/08/25 06:03 53 L 10 L 02/08/25 05:36 62 14 02/08/25 05:09 60 15 128/55 L 02/08/25 04:09 65 19 131/71 02/08/25 03:18 60 17 120/57 L 02/08/25 02:30 64 25 H 02/08/25 02:27 60 15 02/08/25 02:15 128/55 L 02/08/25 02:15 128/55 L 02/08/25 01:23 117/57 L 02/08/25 01:21 101/56 L 02/08/25 01:21 85 17 02/08/25 01:16 111/41 L 02/08/25 01:16 111/41 L 02/08/25 01:16 111/41 L 02/08/25 01:12 65 18 02/08/25 01:11 105/41 L 02/08/25 01:11 105/41 L 02/08/25 01:09 67 27 H 02/08/25 01:06 114/43 L 02/08/25 01:06 114/43 L 02/08/25 01:06 114/43 L 02/08/25 01:06 71 23 02/08/25 01:01 106/44 L 02/08/25 00:55 110/43 L 02/08/25 00:45 105/43 L 02/08/25 00:45 105/43 L Pulse Ox O2 Del Method 02/08/25 12:30 94 Room Air 02/08/25 12:00 93 Room Air 02/08/25 11:30 96 Room Air 02/08/25 11:00 94 Room Air 02/08/25 10:45 96 Room Air 02/08/25 10:30 96 Room Air 02/08/25 10:15 02/08/25 10:15 94 Room Air 02/08/25 10:10 94 Room Air 02/08/25 09:51 93 Room Air 02/08/25 09:36 93 Room Air 02/08/25 07:29 92 Room Air 02/08/25 07:00 02/08/25 07:00 95 02/08/25 06:30 91 02/08/25 06:03 95 02/08/25 05:36 93 02/08/25 05:09 95 02/08/25 04:09 96 02/08/25 03:18 93 02/08/25 02:30 91 02/08/25 02:27 92 02/08/25 02:15 02/08/25 02:15 02/08/25 01:23 02/08/25 01:21 02/08/25 01:21 97 02/08/25 01:16 02/08/25 01:16 02/08/25 01:16 02/08/25 01:12 95 02/08/25 01:11 02/08/25 01:11 02/08/25 01:09 95 02/08/25 01:06 02/08/25 01:06 02/08/25 01:06 02/08/25 01:06 95 02/08/25 01:01 02/08/25 00:55 02/08/25 00:45 02/08/25 00:45 Laboratory Results Laboratory Results - last 24 hr 02/07/25 02/07/25 02/07/25 14:19 14:35 16:40 WBC RBC Hgb Hct MCV MCH MCHC RDW Std Deviation RDW Coeff of [place] Plt Count MPV Immature Gran % (Auto) Neut % (Auto) Lymph % (Auto) [place] % (Auto) Eos % (Auto) Baso % (Auto) Neut # (Auto) Lymph # (Auto) [place] # (Auto) Eos # (Auto) Baso # (Auto) Immature Gran # (Auto) Sodium Potassium Chloride Carbon Dioxide Anion Gap BUN Creatinine Est Cr Clr Drug Dosing eGFR BUN/Creatinine Ratio Glucose POC Glucose 142 H 114 H Calcium Phosphorus Magnesium Urine Color Urine Appearance Urine pH Ur Specific [place] Urine Protein Urine Glucose (UA) Urine Ketones Urine Blood Urine Nitrite Urine Bilirubin Urine Urobilinogen Ur Leukocyte Esterase Urine Comment Nasal Screen MRSA (PCR) Negative 02/08/25 02/08/25 02/08/25 04:24 11:19 11:55 WBC 8.61 RBC 3.74 L Hgb 11.5 L Hct 32.9 L MCV 88.0 MCH 30.7 MCHC 35.0 RDW Std Deviation 46.6 H RDW Coeff of [place] 14.5 Plt Count 168 MPV 9.4 Immature Gran % (Auto) 0.3 Neut % (Auto) 69.1 Lymph % (Auto) 17.9 [place] % (Auto) 11.6 Eos % (Auto) 0.9 Baso % (Auto) 0.2 Neut # (Auto) 5.94 Lymph # (Auto) 1.54 [place] # (Auto) 1.00 H Eos # (Auto) 0.08 Baso # (Auto) 0.02 Immature Gran # (Auto) 0.03 Sodium 134 L Potassium 3.4 L Chloride 105 Carbon Dioxide 25 Anion Gap 4 BUN 26 H Creatinine 1.22 Est Cr Clr Drug Dosing 39.8 eGFR 57.02 BUN/Creatinine Ratio 21.3 H Glucose 111 H POC Glucose 132 H Calcium 8.1 L Phosphorus 3.1 Magnesium 2.0 Urine Color Yellow Urine Appearance Clear Urine pH 5.5 Ur Specific [place] 1.030 Urine Protein Negative Urine Glucose (UA) Negative Urine Ketones Trace H Urine Blood Negative Urine Nitrite Negative Urine Bilirubin Negative Urine Urobilinogen Negative Ur Leukocyte Esterase Negative Urine Comment Nasal Screen MRSA (PCR) PG Care Time/CCT Total # of Minutes Spent Total Time Spent with Patient: Total time spent is greater than 50% in coordination of care (as documented) at patient's floor/unit and/or counseling patient: Coding Level of Care Code 24337 SUB INP/OBS CARE 3/50MIN Diagnoses Complete heart block I44.2 Aortic dissection I71.00 Hypertension I10
[2025-02-08] MEDS: METOPROLOL SUCC 25MG EXT REL TAB PO SCH (14:24)
--- NOTE | 2025-02-08 15:00 | Billing Data ---
Date of Service February 08, 2025 Coding Level of Care Code 51028 SUB INP/OBS CARE
[2025-02-08] MEDS: FUROSEMIDE 80 MG TAB PO SCH (16:22)
[2025-02-08] MEDS: TAMSULOSIN HCL 0.4 MG CAP PO SCH (20:39)
--- NOTE | 2025-02-09 07:45 | XRay Report ---
EXAM: XR chest 2V PA/lateral CLINICAL HISTORY: Evaluate for pneumothorax. Recent pacemaker. TECHNIQUE: X-ray images of the chest were obtained in posteroanterior (PA) and lateral projections. COMPARISON: CR dated 02/07/2025. FINDINGS: Small surgical clips in the right axilla. Left sided dual-lead cardiac pacemaker is seen in place. Sternotomy sutures are redemonstrated. Overlying chest leads are redemonstrated. Pulmonary Parenchyma: No lucency or evidence of gross visceral pleural line seen on either side to raise suspicion of pneumothorax. Redemonstration of opacification in right lower zone likely basilar atelectasis vs diaphragmatic hump. Heart and Mediastinum: Atherosclerotic calcification in the aortic arch and thoracic aorta. Heart size and shape are normal. No mediastinal widening or masses. No hilar or mediastinal lymphadenopathy. Bony Thorax: Degenerative changes and a partial compression collapse of one of mid thoracic vertebra. Soft Tissues: Surgical clips are noted in the right hypochondrium. IMPRESSION: 1. No evidence of pneumothorax. 2. Left sided dual-lead cardiac pacemaker with normal position of leads. New finding. 3. Redemonstration of opacification in right lower zone likely basilar atelectasis vs diaphragmatic hump. Electronically signed by Claude Faria 02-09-2025 07:45 AM
[2025-02-09] MEDS: LOSARTAN POTASSIUM 25 MG TAB PO SCH (08:19)
[2025-02-09] MEDS: FUROSEMIDE 40 MG TAB PO SCH (08:19)
[2025-02-09] MEDS: ADENOSINE IV SOLN 3 MG/ML 2 ML VIAL IV ONE (08:45)
[2025-02-09] MEDS ORDERED: AMIODARONE IV BOLUS & DRIP IV STA (09:44)
[2025-02-09] MEDS ORDERED: Heparin IV Adult Wt-Based Low-Dose w/ INITIAL Bolus Protocol IV STA (09:44)
[2025-02-09] MEDS ORDERED: STAT IV Infusion **Titration per Protocol STA (09:44)
[2025-02-09] MEDS ORDERED: 0.2 MICRON FILTER SET 1 EACH IV STA (09:44)
--- NOTE | 2025-02-09 09:51 | Cardiology Progress Note ---
Date of Service February 09, 2025 Assessment & Plan (1) Complete heart block: (2) Aortic dissection: (3) Hypertension: (4) Atypical atrial flutter: (5) Pacemaker: Plan 89-year-old presenting with symptomatic complete heart block with progression of underlying conduction system disease. 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 1. Complete heart block status post dual-chamber pacemaker insertion. Normal device function, chest x-ray with appropriate lead positioning 2. New onset atrial flutter, atypical with elevated ventricular response rate. Plan initiate anticoagulation with IV heparin begin IV amiodarone infusion BMP this morning assess electrolytes and potassium level. Keep n.p.o. after midnight tonight 3. Structural heart disease status post type I aortic dissection with associated surgical root repair and aortic valve replacement. Stable echocardiogram this admission Okay to transition to PCU Admission and Anticipated Discharge Date Admission Date: February 07, 2025 Subjective Patient seen and examined, chart, medications, telemetry reviewed. Patient earlier this morning lapsed into atrial tachycardia likely atypical atrial flutter by pacer interrogation. IV adenosine administered demonstrating atrial arrhythmia. Pacer device functioning appropriately No acute cardiac complaints. Pacer incision healing. Frequent urination overnight in association with diuretic. No dysuria Review of Systems Review of Systems: All systems reviewed & are unremarkable except as noted in Subjective Physical Exam Constitutional: no acute distress Eyes: PERRL, conjunctivae normal, anicteric sclerae ENMT: external ear and nose normal, oropharynx normal Neck: trachea midline, no thyromegaly Respiratory: normal respiratory effort, lungs clear to auscultation Cardiovascular: Rate/Rhythm: regular rhythm and + tachycardic Heart Sounds: + murmur (Grade 2 over 6 systolic murmur) Vessels: no JVD Extremities: no edema Chest (Breasts): Chest: + pacemaker (New incision site bandaged and clean) Gastrointestinal (Abdomen): normal bowel sounds, soft, nontender, no hepatosplenomegaly Results & Data Vital Signs (Past 12 Hours) Vital Signs Temp Pulse Resp BP Pulse Ox 02/09/25 07:03 84 18 138/62 02/09/25 06:15 92 H 15 02/09/25 05:00 89 23 02/09/25 04:12 71 15 02/09/25 04:00 36.9 C 71 18 128/67 98 02/09/25 03:09 66 18 02/09/25 02:00 82 22 02/09/25 01:27 67 16 02/09/25 00:09 73 18 02/08/25 23:00 70 22 02/08/25 22:00 74 14 PG Care Time/CCT Total # of Minutes Spent Total Time Spent with Patient: Total time spent is greater than 50% in coordination of care (as documented) at patient's floor/unit and/or counseling patient: Coding Level of Care Code 19485 SUB INP/OBS CARE 3/50MIN Diagnoses Complete heart block I44.2 Aortic dissection I71.00 Hypertension I10 Atypical atrial flutter I48.4 Pacemaker Z95.0
[2025-02-09] MEDS: HEPARIN 25000 UNIT/500 ML D5W 25,000 UNITS/500 ML BAG IV SCH (10:17)
[2025-02-09] MEDS: AMIODARONE / D5W 150 MG/100 ML BAG IV STA (10:17)
[2025-02-09] MEDS: HEPARIN SOD (PORCINE) 1000 UNIT/ML IV ONE (10:18)
[2025-02-09 10:22] LABS: Anion Gap 6.0 (3-11); Blood Urea Nitrogen 21.0 mg/dl (6-23); Calcium 8.4 mg/dl (8.6-10.3); Carbon Dioxide 28.0 mmol/L (21-32); Chloride 103.0 mmol/L (98-107); Creatinine Clr Calc Pharmacy 42.6 ml/min; Glucose 80.0 mg/dl (70-99(Fasting)); Potassium 3.4 mmol/L (3.5-5.1); Sodium 137.0 mmol/L (136-145)
[2025-02-09] MEDS: AMIODARONE / D5W 360 MG/200 ML BAG IV ONE (10:36)
[2025-02-09] MEDS: POTASSIUM CHLORIDE CRTAB 20 MEQ TABCR PO ONE (12:28)
[2025-02-09] MEDS: SPIRONOLACTONE 25 MG TAB PO SCH (12:29)
[2025-02-09] MEDS: AMIODARONE / D5W 360 MG/200 ML BAG IV SCH (16:41)
[2025-02-09 17:13] LABS: ANTI-Xa, UFH(UnfractionatedHep 0.27 IU/ml (0.3-0.7)
--- NOTE | 2025-02-09 17:23 | Hospitalist Progress Note ---
Date of Service February 09, 2025 Assessment & Plan (1) Dizziness: (2) Complete heart block: Plan Luis is an 89 year-old male with PMH of aortic dissection (repaired in 2004), HTN, hyperlipidemia, and mitral regurgitation, presenting for new onset three episodes of dizziness with no other neurological symptoms and source of trigger who was shown to have second degree AV block transitioning to third degree block and reverting back to sinus rhythm while in the ED. Head CT, Chest CT, and CXR did not show possible causes of his new onset arrhythmia, with chest CT showing possible atelectasis versus early pneumonia with no pulmonary symptoms thus far. He was stable post-pacemaker placement until this AM, when he started to have tachycardia (spiked to 120 max) and was found to be in a-fib post adenosine administration of 6 mg. Continues to be asymptomatic and is currently managed with meds, pending cardioversion tomorrow. Plan #Dizziness l Third Degree AV Block Assessment: These past three dizziness episodes are likely due to new onset second/third degree heart block that he will go into and then revert back to sinus bradycardia. He was stable pacemaker placement, but was found to have possible SVT/atrial tachycardia this AM, did not respond to vagal maneuvers or adenosine 6 mg, but a-fib was uncovered post-adenosine administration. Plan: - CCM in place - Continuing home metoprolol for BP management/rate-control for a-fib - Serial EKGs - ECHO 02/07/25: ordered per cards: mild thickening of prosthetic valves, EF = 55-60% - Cards following, made the following recs with new onset a-fib: - IV heparin - IV amiodarone - BMP ordered to assess for electrolyte abnormalities (labs did not show electrolyte abnormalities that could have contributed) - NPO at midnight, pending cardioversion tomorrow #Mitral regurgitation Assessment: Hx of chronic mitral regurg, followed by cards, currently asymptomatic for it and not medically managed. Plan: - ECHO 02/07/25: significant mitral regurg is absent - Continue to clinically monitor, currently asymptomatic #Hypertension Assessment: Chronic hx of HTN, was hypotensive on admission, but BP has been stable since pacemaker placement. Plan: - Re-started metoprolol in the setting of new a-fib and normalized BP #Hyperlipidemia Assessment: Chronic hx of hyperlipidemia, no known hx of CAD or carotid stenosis. Plan: - Continue home med Dispo: PCU Admission and Anticipated Discharge Date Admission Date: February 07, 2025 Supervising Physician Co-Signing Physician Notes I personally examined the patient and verified all echavarria points of history and exam, discussed case, and agree with decision making with Dr Ibanez and Billy Cheney MS4 feeling ok heart rate up but no symptoms. cardiology input appreciated getting OOB vitals noted nad heent nc at mmm cardio irreg irreg ~110 on monitor breathing unlabored no accessory muscles good effort skin no rashes no pallor or icterus neuro no focal deficits complete heart block - post transvenous pacer; now post PPM - this is stable but now aflutter. management per cardiology. otherwise as above Subjective Seen at bedside this AM, feels good with no SOB, chest pain, dizziness, and any other symptoms. Sitting comfortably in chair. Was found to have tachycardia and arrhythmia peaking at 120 and was asymptomatic. Review of Systems Review of Systems: As noted in HPI. Physical Exam Physical Exam: General: In no acute distress. Sitting comfortably in chair. HEENT: No cervical lymphadenopathy. PERRLA. No signs of JVD. CV: S1 and S2 sounds present. No murmurs, rubs, or gallops. Irregular rate and rhythm. Resp: CTA B/L. No rales, wheezing, or rhonchi. GI: Normoactive bowel sounds. No tenderness to palpation or masses appreciated. MSK: No peripheral edema. No abnormal lesions visualized. Psych: Appropriate mood and affect. Results & Data Results & Data Vital Signs (Past 12 Hours) Vital Signs Temp Pulse Resp BP Pulse Ox 02/09/25 07:03 84 18 138/62 02/09/25 06:15 92 H 15 02/09/25 05:00 89 23 02/09/25 04:12 71 15 02/09/25 04:00 36.9 C 71 18 128/67 98 02/09/25 03:09 66 18 02/09/25 02:00 82 22 02/09/25 01:27 67 16 02/09/25 00:09 73 18 02/08/25 23:00 70 22
--- NOTE | 2025-02-09 17:32 | Billing Data ---
Date of Service February 09, 2025 Coding Level of Care Code 19319 SUB INP/OBS CARE
[2025-02-09 19:24] VITALS: RESP 18
[2025-02-09 23:39] LABS: ANTI-Xa, UFH(UnfractionatedHep 0.23 IU/ml (0.3-0.7)
[2025-02-10 07:59] LABS: Hematocrit (blood only) 34.4 % (42.0-52.0); Hemoglobin 11.7 g/dl (14.0-18.0); Immature Granulocytes # (auto) 0.03 K/uL (0.01-0.20); Immature Granulocytes % (auto) 0.4 %; Mean Corpuscular Hemoglobin 30.1 pg (25.0-34.0); Mean Corpuscular Volume 88.4 fL (80.0-100.0); Platelet Count 167 K/uL (130-400); RDW Standard Deviation 47.1 fL (36.4-46.3); Red Blood Count 3.89 M/uL (4.70-6.10); White Blood Count 7.24 K/ul (4.8-10.8)
[2025-02-10 08:12] LABS: Alanine Aminotransferase 13.0 U/L (7-52); Albumin Globulin Ratio 1.5 (0.9-2); Alkaline Phosphatase 61.0 U/L (34-104); Anion Gap 4.0 (3-11); Bilirubin,Total 0.5 mg/dl (0.2-1.0); Blood Urea Nitrogen 19.0 mg/dl (6-23); Calcium 8.1 mg/dl (8.6-10.3); Carbon Dioxide 29.0 mmol/L (21-32); Chloride 103.0 mmol/L (98-107); Creatinine Clr Calc Pharmacy 48.5 ml/min; Globulin 2.2 gm/dl (2.5-4.0); Glucose 105.0 mg/dl (70-99(Fasting)); Magnesium 2.2 mg/dl (1.7-2.4); Potassium 3.6 mmol/L (3.5-5.1); Sodium 136.0 mmol/L (136-145); Total Protein 5.6 gm/dl (6.0-8.3)
[2025-02-10 08:30] LABS: ANTI-Xa, UFH(UnfractionatedHep 0.30 IU/ml (0.3-0.7)
--- NOTE | 2025-02-10 09:44 | Hospitalist Progress Note ---
Date of Service February 10, 2025 Assessment & Plan (1) Dizziness: (2) Complete heart block: Plan Luis is an 89 year-old male with PMH of aortic dissection (repaired in 2004), HTN, hyperlipidemia, and mitral regurgitation, presenting for new onset three episodes of dizziness with no other neurological symptoms and source of trigger who was shown to have second degree AV block transitioning to third degree block and reverting back to sinus rhythm while in the ED. Head CT, Chest CT, and CXR did not show possible causes of his new onset arrhythmia, with chest CT showing possible atelectasis versus early pneumonia with no pulmonary symptoms thus far. He was stable post-pacemaker placement until this AM, when he started to have tachycardia (spiked to 120 max) and was found to be in a-fib post adenosine administration of 6 mg. Continues to be asymptomatic and is currently managed with meds, pending cardioversion tomorrow. Plan #Dizziness l Third Degree AV Block Assessment: These past three dizziness episodes are likely due to new onset second/third degree heart block that he will go into and then revert back to sinus bradycardia. He was stable pacemaker placement, but was found to have possible SVT/atrial tachycardia this AM, did not respond to vagal maneuvers or adenosine 6 mg, but a-fib was uncovered post-adenosine administration. Plan: - CCM in place - Continuing home metoprolol for BP management/rate-control for a-fib - Serial EKGs - ECHO 02/07/25: ordered per cards: mild thickening of prosthetic valves, EF = 55-60% - Cards following, made the following recs with new onset a-fib: - IV heparin - IV amiodarone - BMP ordered to assess for electrolyte abnormalities (labs did not show electrolyte abnormalities that could have contributed) repleat potassium, pending repeat labs - NPO at midnight, pending cardioversion tomorrow #Mitral regurgitation Assessment: Hx of chronic mitral regurg, followed by cards, currently asymptomatic for it and not medically managed. Plan: - ECHO 02/07/25: significant mitral regurg is absent - Continue to clinically monitor, currently asymptomatic #Hypertension Assessment: Chronic hx of HTN, was hypotensive on admission, but BP has been stable since pacemaker placement. Plan: - Re-started metoprolol in the setting of new a-fib and normalized BP #Hyperlipidemia Assessment: Chronic hx of hyperlipidemia, no known hx of CAD or carotid stenosis. Plan: - Continue home med Dispo: PCU Admission and Anticipated Discharge Date Admission Date: February 07, 2025 Subjective Seen this AM at bedside, feels well. Walked a bit with PT yesterday and did not have any issues with walking. Review of Systems Review of Systems: As noted in HPI. Physical Exam Physical Exam: General: In no acute distress. Sitting comfortably in chair. HEENT: No cervical lymphadenopathy. PERRLA. No signs of JVD. CV: S1 and S2 sounds present. No murmurs, rubs, or gallops. Irregular rate and rhythm. Resp: CTA B/L. No rales, wheezing, or rhonchi. GI: Normoactive bowel sounds. No tenderness to palpation or masses appreciated. MSK: No peripheral edema. No abnormal lesions visualized. Psych: Appropriate mood and affect. Results & Data Results & Data Vital Signs (Past 12 Hours) Vital Signs Temp Pulse Pulse Resp BP Pulse Ox O2 Del Method 02/10/25 08:00 65 02/10/25 07:32 Room Air 02/10/25 07:20 36.7 C 62 18 119/62 93 Room Air 02/10/25 02:35 36.3 C L 65 18 102/56 L 95 Room Air 02/09/25 22:29 36.5 C 66 18 129/66 96 Room Air 02/09/25 21:42 60
[2025-02-10] MEDS: POTASSIUM CHLORIDE CRTAB 20 MEQ TABCR PO ONE (10:57)
[2025-02-10] MEDS: APIXABAN 5 MG TABLET PO SCH (10:57)
--- NOTE | 2025-02-10 10:57 | Electrocardiogram Report ---
Test Reason : Blood Pressure : */* mmHG Vent. Rate : 64 BPM Atrial Rate : 64 BPM P-R Int : 326 ms QRS Dur : 148 ms QT Int : 464 ms P-R-T Axes : 12 21 258 degrees QTcB Int : 478 ms Sinus rhythm with 1st degree A-V block Left bundle branch block Abnormal ECG When compared with ECG of 08-Feb-2025 09:43, Sinus rhythm has replaced Electronic ventricular pacemaker Confirmed by Deepak Weber ([id number]) on 02/10/2025 10:56:36 AM Referred By: REFERRED SELF Confirmed By: Deepak Weber
--- NOTE | 2025-02-10 11:06 | Cardiology Progress Note ---
Date of Service February 10, 2025 Assessment & Plan (1) Complete heart block: (2) Aortic dissection: (3) Hypertension: (4) Atypical atrial flutter: (5) Pacemaker: Plan 89-year-old presenting with symptomatic complete heart block with progression of underlying conduction system disease. 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 1. Complete heart block status post dual-chamber pacemaker insertion. Normal device function, chest x-ray with appropriate lead positioning 2. New onset atrial flutter, atypical with elevated ventricular response rate. Plan initiate anticoagulation with IV heparin begin IV amiodarone infusion BMP this morning assess electrolytes and potassium level. Keep n.p.o. after midnight tonight 3. Structural heart disease status post type I aortic dissection with associated surgical root repair and aortic valve replacement. Stable echocardiogram this admission Okay to transition to PCU 02/10/2025 Clinically stable overnight with conversion to sinus with intermittent ventricular pacing. Issues addressed as follows 1. Atypical atrial flutter possibly as a response to procedures, medications. Will transition IV amiodarone to oral amiodarone 200 mg daily x 3 days then 1/day Anticoagulation with Eliquis 5 mg twice per day. Will reassess after 1 month indications for further antiarrhythmic therapy and anticoagulation. 2. Complete heart block, symptomatic status post dual-chamber pacemaker insertion. Pacemaker clinic contacted for follow-up/wound check, 6 to 10 days 3. Type I aortic dissection status post aortic valve replacement and aortic root repair, stable Cardiology appointment will be arranged in 2 to 4 weeks Stable for discharge later today after ambulation Admission and Anticipated Discharge Date Admission Date: February 07, 2025 Subjective Patient seen and examined, chart, medications, telemetry reviewed. Feels well this morning. Spontaneous conversion to sinus rhythm yesterday. No further arrhythmias on telemetry with appropriate pacer function Review of Systems Review of Systems: All systems reviewed & are unremarkable except as noted in Subjective Physical Exam Constitutional: no acute distress Eyes: PERRL, conjunctivae normal, anicteric sclerae ENMT: external ear and nose normal, oropharynx normal Neck: trachea midline, no thyromegaly Respiratory: normal respiratory effort, lungs clear to auscultation Cardiovascular: Rate/Rhythm: regular rate and regular rhythm (Ventricular paced) Heart Sounds: + murmur (Grade 2 over 6 systolic murmur) Vessels: no JVD Extremities: no edema Chest (Breasts): Chest: + pacemaker (New incision site bandaged and clean) Gastrointestinal (Abdomen): normal bowel sounds, soft, nontender, no hepatos plenomegaly Results & Data Vital Signs (Past 12 Hours) Vital Signs Temp Pulse Pulse Resp BP Pulse Ox O2 Del Method 02/10/25 08:00 65 02/10/25 07:32 Room Air 02/10/25 07:20 36.7 C 62 18 119/62 93 Room Air 02/10/25 02:35 36.3 C L 65 18 102/56 L 95 Room Air Laboratory Results Laboratory Results - last 24 hr 02/09/25 02/09/25 02/10/25 16:22 22:27 07:00 WBC RBC Hgb Hct MCV MCH MCHC RDW Std Deviation RDW Coeff of [place] Plt Count MPV Immature Gran % (Auto) Neut % (Auto) Lymph % (Auto) White % (Auto) Eos % (Auto) Baso % (Auto) Neut # (Auto) Lymph # (Auto) White # (Auto) Eos # (Auto) Baso # (Auto) Immature Gran # (Auto) Heparin Anti-Xa, Unfract 0.27 L 0.23 L 0.30 Sodium Potassium Chloride Carbon Dioxide Anion Gap BUN Creatinine Est Cr Clr Drug Dosing eGFR BUN/Creatinine Ratio Glucose POC Glucose Calcium Magnesium Total Bilirubin AST ALT Alkaline Phosphatase Total Protein Albumin Globulin Albumin/Globulin Ratio 02/10/25 02/10/25 07:03 07:22 WBC 7.24 RBC 3.89 L Hgb 11.7 L Hct 34.4 L MCV 88.4 MCH 30.1 MCHC 34.0 RDW Std Deviation 47.1 H RDW Coeff of [place] 14.7 H Plt Count 167 MPV 9.7 Immature Gran % (Auto) 0.4 Neut % (Auto) 56.7 Lymph % (Auto) 24.7 White % (Auto) 12.6 Eos % (Auto) 5.2 Baso % (Auto) 0.4 Neut # (Auto) 4.10 Lymph # (Auto) 1.79 White # (Auto) 0.91 H Eos # (Auto) 0.38 Baso # (Auto) 0.03 Immature Gran # (Auto) 0.03 Heparin Anti-Xa, Unfract Sodium 136 Potassium 3.6 Chloride 103 Carbon Dioxide 29 Anion Gap 4 BUN 19 Creatinine 0.97 Est Cr Clr Drug Dosing 48.5 eGFR 75.09 BUN/Creatinine Ratio 19.6 Glucose 105 H POC Glucose 109 H Calcium 8.1 L Magnesium 2.2 Total Bilirubin 0.5 AST 19 ALT 13 Alkaline Phosphatase 61 Total Protein 5.6 L Albumin 3.4 Globulin 2.2 L Albumin/Globulin Ratio 1.5 PG Care Time/CCT Total # of Minutes Spent Total Time Spent with Patient: Total time spent is greater than 50% in coordination of care (as documented) at patient's floor/unit and/or counseling patient: Coding Level of Care Code 70710 SUB INP/OBS CARE 3/50MIN Diagnoses Complete heart block I44.2 Aortic dissection I71.00 Hypertension I10 Atypical atrial flutter I48.4 Pacemaker Z95.0
[2025-02-10 11:34] VITALS: BP 117/66; TEMP 97.9; O2SAT 95
[2025-02-10 13:27] VITALS: PULSE 82
--- NOTE | 2025-02-10 14:48 | Discharge Summary ---
Date of Service February 10, 2025 Admission HPI Per Admitting Provider Luis is an 89 year-old male with PMH of of mitral regurg, hypertension, and hyperlipidemia presenting for dizziness. He first felt it 10 days ago, fell, and fractured his rib. He was evaluated in the ED and was deemed stable for d/c. He said at the onset of his symptoms, he had a wave of heat fink down his body that resolved within a couple of minutes on his own. He did not pass out on Friday and was sitting comfortably in bed when the symptoms came on. He started to have a similar feeling overnight, which prompted the visit to the ED today. Denies fever, chills, nausea, vomiting, numbness, tingling, syncope, chest pain, headaches, and SOB. No hx of bleeding disorders. Denies hx of irregular heart rhythms and has not taken his medications today. Denies taking any medications, supplements, drug use, alcohol use, or smoking. No other cardiac/pulm hx. Has stated that his PO intake has been low, drinks 2 glasses of water a day. Admission Exam (Per Admitting) Constitutional General: Does not appear in acute distress. Laying comfortably in bed. HEENT: Head is atraumatic and normocephalic. No signs of JVD. PERRLA. CV: S1 and S2 sounds present. No murmurs, rubs, or gallops. S1 and S2 sounds present. Resp: CTA B/L. No rales, wheezing, or rhocnhi. GI: Normoactive bowel sounds. No tenderness to palpation. MSK: No peripheral edema. No abnormal lesions visualized. Psych: Appropriate mood and affect. Discharge Data Consultations 02/07/25 09:14 ED Decision to Admit Stat 02/07/25 09:24 Consult Cardiology Stat 02/07/25 10:15 Consult Shredded Filler Machine Wrapper Layer Stat Procedures Performed Operation Date: 02/08/25 08:00 Actual Procedures p Pacer with A/V Leads (Dual) - Sherif Douglas MD Hospital Course (1) Dizziness: (2) Complete heart block: Plan Assessment Luis is an 89 year-old male with PMH of aortic dissection (repaired in 2004), HTN, hyperlipidemia, and mitral regurgitation, presenting for new onset three episodes of dizziness with no other neurological symptoms and source of trigger who was shown to have second degree AV block transitioning to third degree block and reverting back to sinus rhythm while in the ED. Head CT, Chest CT, and CXR did not show possible causes of his new onset arrhythmia, with chest CT showing possible atelectasis versus early pneumonia with no pulmonary symptoms thus far. He was stable post-pacemaker placement until 02/09, when he started to have tachycardia (spiked to 120 max) and was found to be in a-fib post adenosine administration of 6 mg. Continues to be asymptomatic and is currently managed with meds (in 1st degree AV block and now sinus rhythm prior to d/c). He will be followed by [facility] and [facility] has set up his post-d/c care. Hospital Course: #Dizziness l Third Degree AV Block Presented to the ED for third degree AV block (HR in 20s-30s) and hypotensive. He had a transvenous pacer placed, followed by a permanent pacemaker on 02/08. He developed SVT on post-op day 1 with a-fib uncovered following adenosine 6 mg administration. He was started on IV amiodarone and heparin, and his home metoprolol was re-started given normal BP and HR. ECHO 02/07/25: ordered per [facility]: mild thickening of prosthetic valves, EF = 55-60%. His potassium was slightly below normal and was repleted. He was followed by cardiology inpatient, who cleared him for d/c on Day 4 given now that he was in atypical a flutter possibly as a response to procedures/meds these past few days. We transitioned IV amiodarone to oral amiodarone 200 mg daily x 3 days then 1/day. Anticoagulation with Eliquis 5 mg twice per day. Cardiology will reassess after 1 month indications for further antiarrhythmic therapy and anticoagulation. Pacemaker clinic contacted for follow-up/wound check, 6 to 10 days. Cardiology appointment will be arranged in 2 to 4 weeks. #Mitral regurgitation Hx of chronic mitral regurg, followed by cards, currently asymptomatic for it and not medically managed. ECHO 02/07/25: significant mitral regurg is absent. We continued to clinically monitor and he remained asymptomatic throughout his stay. #Hypertension Chronic hx of HTN, was hypotensive on admission (we held his metoprolol), but BP has been stable since pacemaker placement. Re-started metoprolol 02/09 in the setting of new a-fib and normalized BP. #Hyperlipidemia Chronic hx of hyperlipidemia, no known hx of CAD or carotid stenosis. We continued home med. Supervising Physician Co-Signing Physician Notes I personally examined the patient and verified all echavarria points of history and exam, discussed case, and agree with decision making with Dr Ibanez and Billy Cheney MS4 feels good would like to go home vitals noted nad heent nc at mmm breathing unlabored no accessory muscles good effort skin no rashes no pallor or icterus neuro no focal deficits complete heart block - post transvenous pacer; now post PPM - went into fib/flutter - spontaneously converted. home on amio and eliquis per cardiology otherwise as above
--- NOTE | 2025-02-10 15:38 | Billing Data ---
Date of Service February 10, 2025 Coding Level of Care Code 39720 IN/OBS DISCH 30 MIN/LESS
[2025-02-10] MEDS ORDERED: AMIODARONE 200 MG TAB PO SCH (17:00)
[2025-02-11 23:18] LABS: Q Fever IgG, Phase I NEGATIVE
[2025-02-14 11:54] LABS: Q Fever IgG Phase II Ttr Rflx 1:16 titer
== END 2025-02-10 14:27 | disposition home health service (06) | DRG 243 ==
LOC: ED 06:53 → EDINP 10:22 → 1E 13:17 → 2S 02-09 14:18